=== PATIENT | female | born 1945 | race Caucasian/White ===

== ENCOUNTER 2017-07-31 16:52 | Inpatient (IN) | payer MEDICARE, BC ==
[2017-07-31] MEDS ORDERED: Ondansetron INJ* 2 MG/ML VIAL IV ONE ×2 (17:12→17:59)
[2017-07-31] MEDS ORDERED: Morphine INJ* 4 MG/ML 1 ML CARPUJECT IV ONE (17:12)
[2017-07-31] MEDS ORDERED: HYDROmorphone INJ* 1 MG/ML CARPUJECT SYRINGE IV ONE (17:59)
[2017-07-31 18:10] LABS: Hematocrit 40 % (35-47); Hemoglobin 13.6 g/dl (12.0-16.0); Mean Corpuscular HGB Conc 34 g/dl (31-36); Mean Corpuscular Hemoglobin 29 pg (27-31); Mean Corpuscular Volume 86 fL (80-97); Mean Platelet Volume 7 um3 (7.4-10.4); Red Blood Count 4.61 10^6/ul (4.0-5.4); Red Cell Distribution Width 14 % (10.5-15); White Blood Count 8.3 10^3/ul (3.5-10.8)
[2017-07-31 18:24] LABS: Albumin 4.4 g/dL (3.2-5.2); BUN/Creatinine Ratio 17.7 (8-20); Calcium 8.8 mg/dL (8.6-10.3); EGFR African American 73.3 (>60); Globulin 2.5 g/dL (2-4); Potassium 3.4 mmol/L (3.5-5.0); Total Bilirubin 0.3 mg/dL (0.2-1.0); Total Protein 6.9 g/dL (6.4-8.9)
--- NOTE | 2017-07-31 19:04 | RAD ---
Indication: LEFT hip pain post fall. Comparison: February 10, 2016 CT. Technique: AP pelvis and AP and frog-leg lateral views LEFT hip. Report: Transcervical LEFT femoral neck fracture with 1 cm lateral displacement and cephalocaudal override of the fracture fragments. The femoral head remains located at the acetabulum. Negative for pelvic fracture or joint diastases. Sharply circumscribed indolent appearing cyst at the RIGHT femoral neck. No suspicious focal osseous lesions evident. Negative for significant hip joint space narrowing or other arthropathic change. Soft tissue swelling about the LEFT hip. IMPRESSION: Acute LEFT femoral neck fracture.
[2017-07-31] MEDS ORDERED: Acetaminophen TAB* 325 MG PO PRN (19:05)
[2017-07-31] MEDS ORDERED: Heparin VIAL(*) 5000 UNITS/ML VIAL (FIVE THOUSAND) SUBCUT ONE (19:10)
--- NOTE | 2017-07-31 19:11 | RAD ---
Indication: Fall. LEFT hip fracture. LEFT side and elbow pain. Comparison: LEFT hip exam of the same date. March 11, 2016 chest radiograph. Technique: Supine AP chest 1829 hours Report: Mildly elevated LEFT hemidiaphragm with LEFT basilar subsegmental atelectasis. Mild diffuse prominence of interstitial markings similar to the prior exam. No gross evidence for pneumothorax within limits of supine technique. Accounting for rightward rotation the heart, pulmonary vasculature, and mediastinal contours are unremarkable. Cervical level surgical clips noted. No conspicuous rib fracture. IMPRESSION: Mild LEFT basilar atelectasis. Stigmata of probable chronic obstructive pulmonary disease.
[2017-07-31] MEDS ORDERED: CMCS:Melatonin (NF) 3 MG TAB PO PRN (19:12)
--- NOTE | 2017-07-31 19:15 | RAD ---
INDICATION: LEFT elbow pain following fall. LEFT hip fracture. COMPARISON: No relevant prior exams available on the [facility] for comparison. TECHNIQUE: AP, lateral, and oblique views LEFT elbow. REPORT: Displaced anterior fat pad consistent with presence of joint effusion. Suggestion of an angular shaped loose body at the anterior joint recess. While a chronic loose body is favored over acute fracture with no donor site visible an acute intra-articular fracture is not excluded. Medial and lateral epicondyles enthesophytes. Mild nonfocal soft tissue swelling. IMPRESSION: Joint effusion. Suggestion of an angular shaped loose body at the anterior joint recess. While a chronic loose body is favored over acute fracture with no donor site visible an acute intra-articular fracture is not excluded.
[2017-07-31 19:53] LABS: Magnesium 2.1 mg/dL (1.9-2.7)
[2017-07-31 20:07] LABS: TSH (Thyroid Stimulating Horm) 0.44 mcIU/mL (0.34-5.60)
[2017-07-31] MEDS: Morphine INJ* 2 MG/ML 1 ML SYRINGE (TWO MG - NEW SYRINGE VERSION) IV PRN ×2 (20:27→22:31)
[2017-07-31] MEDS: Ondansetron INJ* 2 MG/ML VIAL IV SCH ×2 (20:30→23:40)
[2017-07-31] MEDS: Mirtazapine TAB* 15 MG PO SCH (20:43)
[2017-07-31] MEDS: QUEtiapine TAB* 100 MG PO SCH (20:45)
[2017-07-31] MEDS: NS 0.9% 1000 ML* 1,000 ML IV SCH (20:48)
--- NOTE | 2017-08-01 00:26 | HP ---
CC: Germán Miguel NP * HISTORY AND PHYSICAL: DATE OF ADMISSION: 07/31/17 PRIMARY CARE PROVIDER: Germán Miguel NP MY ATTENDING WHILE IN THE HOSPITAL: Dr. Everardo Kovacs * (DICTATED BY HERNANDEZ ROCHA) CHIEF COMPLAINT: Fall with left hip pain. HISTORY OF PRESENT ILLNESS: The patient is a 72-year-old female with past medical history significant for osteopenia, depression, hypertension, thyroidectomy, hyperlipidemia, who presents after a mechanical fall in which she tripped off her porch falling down one step and landing onto a concrete apron. The patient denies any loss of consciousness, any prodrome of symptoms. The patient states she tripped. The patient did not hit her head. The patient has no current pain in her head. The patient did not have a history of frequent falls. The patient has 4/10 pain in her hip after significant pain medication in the hospital. The patient denies any other pains. The patient denies any feeling of a pop or crack in her hip. The patient has no recent changes in medication or oral intake or any recent illnesses, chest pain, shortness of breath, nausea, vomiting, diarrhea. The patient took all of her medications this morning. The patient's most recent oral intake with lunch at 12:30 p.m. today. PAST MEDICAL HISTORY: Depression, hypertension, thyroidectomy for thyroid nodules that were found to be cancerous, osteopenia with T score of negative 1 from 2013, and hyperlipidemia. PAST SURGICAL HISTORY: Thyroidectomy. MEDICATIONS: 1. Aspirin 81 mg p.o. daily. 2. Melatonin 6 mg p.o. at bedtime as needed. 3. Docusate 100 mg p.o. daily. 4. Buspirone 10 mg p.o. t.i.d. 5. Amlodipine 10 mg p.o. daily. 5. Lipitor 10 mg p.o. q.p.m. 6. Lexapro 20 mg p.o. daily. 7. Quetiapine 100 mg p.o. b.i.d. 8. Remeron 45 mg p.o. at bedtime. 9. Levothyroxine 112 mcg p.o. daily. ALLERGIES: SULFA DRUGS. FAMILY HISTORY: The patient's father of old age. The patient's mother of bowel cancer and had hypertension. The patient had a paternal aunt, who had juvenile-onset diabetes. The patient had a maternal uncle, who of lung cancer. SOCIAL HISTORY: The patient smoked for about 15 years but states she never inhaled and quit in 1980. The patient drank, had a problem with alcohol but could not quantify her amount of alcohol she drank and quit 2 years ago. The patient denies any illicit drugs. 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 The patient is and never had any children. REVIEW OF SYSTEMS: A 14-point review of systems was reviewed and negative except as above. PHYSICAL EXAMINATION GENERAL: The patient is a 72-year-old female who appears stated age and is lying in the bed in moderate distress from pain. VITAL SIGNS: On admission in the ED, temperature 98, pulse rate 94, respiratory rate 24, oxygen saturation 97% on room air, blood pressure 177/72. HEENT: Head normocephalic, atraumatic. Sclerae anicteric. No conjunctival injection. Nasal mucosa moist. No trauma to the inside of the mouth or nose. No damage to the teeth. Pharynx nonerythematous. NECK: Supple, nontender. No lymphadenopathy. No carotid bruits auscultated. RESPIRATORY: Clear to auscultation bilaterally. No wheezes, rales, or rhonchi. Good air exchange bilaterally. CARDIAC: Regular rate and rhythm. No clicks, murmurs, gallops, or rubs. Pulse is 2+ in the bilateral radial, dorsalis pedis, and posterior tibialis areas. ABDOMEN: Soft, nontender, nondistended. Normoactive bowel sounds present in all 4 quadrants. No hepatosplenomegaly. No mass. GENITOURINARY: No suprapubic tenderness or CVA tenderness. MUSCULOSKELETAL: The patient has preserved range of motion in the upper extremities bilaterally with tenderness to palpation diffusely around the left elbow with no point tenderness. There is a slight open area on the left elbow. The patient has no ecchymosis noted anywhere on the skin. The patient's left lower extremity is slightly shortened and externally rotated with obvious deformity. There is pain to palpation over the posterior aspect of the hip. There is excruciating pain with any movement of the lower extremity. Sensation is intact to light touch and equal to the right side distal to the deformity. Skin is pink and warm. Good pulses. The patient complains of no other pain or tenderness. NEURO: Cranial nerves II through XII grossly intact. Strength preserved in the upper extremity. Strength preserved distally in the lower extremity and equal bilaterally. Reflexes 2+ in the bilateral patellar and Achilles areas. PSYCHIATRIC: The patient is anxious but is otherwise cooperative and pleasant. DIAGNOSTIC STUDIES/LAB DATA: White blood cell count 8.3, red blood cell count 4.61, hemoglobin 13.6, hematocrit 40, MCV 86. INR 0.86. Sodium 136, potassium 3.4, chloride 103, carbon dioxide 24, anion gap 9, BUN 17, creatinine 0.96, BUN- to- creatinine ratio 17.7, glucose 102, calcium 8.8. Bilirubin 0.3, AST 20, ALT 11, alkaline phosphatase 67, albumin 4.4, globulin 2.5. Electrocardiogram shows normal sinus rhythm, rate of 91, early repolarization in V2 and V3 consistent with previous studies, no ST-segment changes, no abnormalities, normal axis, QTc of 451. Elbow x-ray read as joint effusion, suggestion of an angular-shaped loose body at the anterior joint recess while a chronic loose body is favored over acute fracture, no donor site visible and acute intra-articular fracture is not excluded. Hip and pelvis x-ray: Acute left femoral neck fracture. Chest x-ray: Mild left basilar atelectasis, is not a stigmata of probable COPD. IMPRESSION AND PLAN: The patient is a 72-year-old female with past medical history significant for osteopenia, hypertension, hyperlipidemia, who presents with a mechanical fall and a left femoral neck fracture. The patient will be admitted and Orthopedics will be consulted for probable surgical fixation in the a.m. 1. Left hip fracture. The patient had a mechanical fall off porch falling down 1 step and hitting her hip and elbow. The patient has a definite fracture in her left femoral neck and a possible fracture in her left elbow, which is not supported by the physical exam findings. The patient will be admitted, placed on a short- stay surgical unit. Orthopedics will be consulted. The patient will be n.p.o. after midnight for possible surgery in the morning. The patient is medically optimized for a moderate-risk surgery. The patient has an RCRI risk of 1 and has at least 4 METs at home having no functional limitation is known. We will continue the patient's medications through surgery except for the patient's aspirin and amlodipine, we will resume when clinically indicated. The patient will be n.p.o. after midnight, only put on normal saline maintenance fluids at 75 mL an hour. The patient will have 1 injection of heparin sodium subcutaneous for DVT prophylaxis and that will be held pending surgery in the morning. The patient will have morphine injection 2 mg IV q.2 hours as needed for pain as well as Tylenol. 2. Hypertension. We will hold the patient's amlodipine. The patient is currently normotensive. 3. Hyperlipidemia. Continue atorvastatin. 4. Osteopenia. The patient has a T-score from a DEXA scan performed at this institution in 2013, this predisposes to fracture, the patient is not treated in any other way. We will consider treatment for osteopenia and repeat DEXA scan as outpatient when indicated. 5. Hypothyroidism status post thyroidectomy. Continue the patient's levothyroxine. We will add on TSH, which is pending. 6. FEN. The patient will have a heart healthy, no caffeine diet, and then be n.p.o. after midnight. The patient will have maintenance fluids at 75 mL an hour IV. 7. Code status. The patient would like to be a DNR. The patient's surrogate decision maker is her , Ej Santana. We will follow up on this. 8. DVT prophylaxis. The patient will have 1 injection of subcu heparin and this will be resumed after surgery when clinically indicated.. 9. Disposition. The patient is admitted inpatient to the short-stay surgical unit pending possible surgical fixation of left hip. TIME SPENT: Approximately 60 minutes was spent on this admission, 30 minutes of which was spent face-to- face with the patient obtaining history and physical and discussing treatment plan. HERNANDEZ ROCHA [id number]/[facility] #: [id number] NATE
--- NOTE | 2017-08-01 03:31 | ED ---
Johanna Junior Gabriel, scribed for Ej Manzano MD on 07/31/17 at 1732 . Lower Extremity - HPI Summary HPI Summary: This patient is a 72 year old F BIBA presenting to [facility] with a chief complaint of pain in left hip s/p fall. Pt states she fell off her porch and hurt her hip. - History of Current Complaint Stated Complaint: FAll HIP AND FEMUR PAIN Time Seen by Provider: 07/31/17 17:27 Hx Obtained From: Patient Mechanism Of Injury: Fall From Height Of: - front porch Onset/Duration: Still Present Timing: Constant - Allergies/Home Medications Allergies/Adverse Reactions: Allergies Allergy/AdvReac Type Severity Reaction Status Date / Time Sulfa Drugs Allergy Mild Rash Verified 03/11/16 22:32 Home Medications: Home Medications Atorvastatin* [Lipitor*] 10 mg PO QPM 07/31/17 [History Confirmed 07/31/17] Docusate CAP* [Colace Cap*] 100 mg PO DAILY 07/31/17 [History Confirmed 07/31/17 ] Escitalopram (NF) [Lexapro 20 mg (NF)] 20 mg PO DAILY 07/31/17 [History Confirmed 07/31/17] Levothyroxine TAB* [Synthroid TAB*] 112 mcg PO DAILY 07/31/17 [History Confirmed 07/31/17] Melatonin (NF) [Meladox] 6 mg PO BEDTIME PRN 07/31/17 [History Confirmed ] Mirtazapine TAB* [Remeron TAB*] 45 mg PO BEDTIME 07/31/17 [History Confirmed ] QUEtiapine TAB* [SEROquel TAB*] 100 mg PO BID 07/31/17 [History Confirmed ] amLODIPine TAB* [Norvasc 5 mg TAB*] 10 mg PO DAILY 07/31/17 [History Confirmed 07/31/17] busPIRone TAB* [Buspar TAB*] 10 mg PO TID 07/31/17 [History Confirmed 07/31/17] PMH/Surg Hx/FS Hx/Imm Hx Previously Healthy: No Endocrine/Hematology History: Denies: Hx Diabetes, Hx Systemic Lupus Erythematosus Cardiovascular History: Reports: Hx Hypertension Denies: Hx Pacemaker/ICD History: Denies: Hx Dialysis, Hx Renal Disease Musculoskeletal History: Denies: Hx Rheumatoid Arthritis, Hx Osteoporosis Sensory History: Reports: Hx Hearing Aid - Left Ear Psychiatric History: Denies: Hx Eating Disorder, Hx Panic Disorder, Hx of Violent Episodes Against Others - Cancer History Cancer Type, Location and Year: thyroid nodule ca Hx Chemotherapy: No Hx Radiation Therapy: No - Surgical History Surgery Procedure, Year, and Place: thyroidectomy 2009. Tonsils. Eye muscle surgery as a child Infectious Disease History: Denies: Traveled Outside the [place] in Last 30 Days - Family History Known Family History: Positive: Diabetes, Other - cancer - Social History Alcohol Use: Occasionally Substance Use Type: Reports: None Smoking Status (MU): Former Smoker Type: Cigarettes Have You Smoked in the Last Year: No Review of Systems Negative: Fever Positive: Other - pain in left hip All Other Systems Reviewed And Are Negative: Yes Physical Exam - Summary Physical Exam Summary: Appearance: Well-appearing Eyes: Normal, Conjunctiva clear ENT: Normal ENT inspection. Dental: Normal Neck: Supple, non-tender, no lymphadenopathy Lungs: Lungs clear, normal breath sounds, no respiratory distress, no accessory muscle use. Heart: RRR, no murmur, pulses normal. Abdomen: Nontender, soft. Musculoskeletal: Left leg is externally rotated and shortened. She is also tender over her left hip. Neurological: Normal Psychiatric: Normal Skin: Normal Triage Information Reviewed: Yes Vital Signs On Initial Exam: Initial Vitals Resp 22 07/31/17 17:44 Vital Signs Reviewed: Yes Diagnostics - Vital Signs Vital Signs Temp Pulse Resp BP Pulse Ox 07/31/17 18:02 24 07/31/17 17:50 98 F 94 24 122/77 97 07/31/17 17:44 22 - Laboratory Lab Results: Lab Results 07/31/17 07/31/17 07/31/17 Range/Units 17:58 17:58 17:58 WBC 8.3 (3.5-10.8) 10^3/ul RBC 4.61 (4.0-5.4) 10^6/ul Hgb 13.6 (12.0-16.0) g/dl Hct 40 (35-47) % MCV 86 (80-97) fL MCH 29 (27-31) pg MCHC 34 (31-36) g/dl RDW 14 (10.5-15) % Plt Count 331 (150-450) 10^3/ul MPV 7 L (7.4-10.4) um3 INR (Anticoag Therapy) 0.86 L (0.89-1.11) APTT 26.7 (26.0-36.3) seconds Sodium 136 (133-145) mmol/L Potassium 3.4 L (3.5-5.0) mmol/L Chloride 103 (101-111) mmol/L Carbon Dioxide 24 (22-32) mmol/L Anion Gap 9 (2-11) mmol/L BUN 17 (6-24) mg/dL Creatinine 0.96 H (0.51-0.95) mg/dL Est GFR ( Amer) 73.3 (>60) Est GFR (Non-Af Amer) 57.0 (>60) BUN/Creatinine Ratio 17.7 (8-20) Glucose 102 H (70-100) mg/dL Calcium 8.8 (8.6-10.3) mg/dL Magnesium 2.1 (1.9-2.7) mg/dL Total Bilirubin 0.30 (0.2-1.0) mg/dL AST 20 (13-39) U/L ALT 11 (7-52) U/L Alkaline Phosphatase 67 (34-104) U/L Total Protein 6.9 (6.4-8.9) g/dL Albumin 4.4 (3.2-5.2) g/dL Globulin 2.5 (2-4) g/dL Albumin/Globulin Ratio 1.8 (1-3) TSH 0.44 (0.34-5.60) mcIU/mL Result Diagrams: 07/31/17 17:58 07/31/17 17:58 Lab Statement: Any lab studies that have been ordered have been reviewed, and results considered in the medical decision making process. Lower Extremity Course/Dx - Course Course Of Treatment: Ms. Cash fell off the porch and was found to have a left hip fracture. Dr. Kovacs has been notified and there is a call out for Dr. Hutchins at this time. - Diagnoses Provider Diagnoses: Closed left hip fracture Discharge - Discharge Plan Condition: Stable Disposition: ADMITTED TO [facility] documentation as recorded by the Johanna ko Gabriel accurately reflects the service I personally performed and the decisions made by , Ej Manzano MD.
[2017-08-01] MEDS: Morphine INJ* 2 MG/ML 1 ML SYRINGE (TWO MG - NEW SYRINGE VERSION) IV PRN ×5 (03:58→14:43)
[2017-08-01] MEDS: Ondansetron INJ* 2 MG/ML VIAL IV SCH ×5 (03:58→22:29)
[2017-08-01] MEDS: Levothyroxine TAB* 112 MCG TAB PO SCH (05:24)
[2017-08-01 05:55] LABS: Hematocrit 39 % (35-47); Hemoglobin 13.1 g/dl (12.0-16.0); Mean Corpuscular HGB Conc 34 g/dl (31-36); Mean Corpuscular Hemoglobin 29 pg (27-31); Mean Corpuscular Volume 87 fL (80-97); Mean Platelet Volume 7 um3 (7.4-10.4); Red Blood Count 4.48 10^6/ul (4.0-5.4); Red Cell Distribution Width 14 % (10.5-15)
[2017-08-01 06:11] LABS: BUN/Creatinine Ratio 13.3 (8-20); Calcium 8.3 mg/dL (8.6-10.3); EGFR African American 71.5 (>60); EGFR Non-African American 55.6 (>60); Potassium 3.3 mmol/L (3.5-5.0)
[2017-08-01] MEDS: CMCS:Escitalopram (NF) 10 MG TAB PO SCH (07:25)
[2017-08-01] MEDS: QUEtiapine TAB* 100 MG PO SCH ×2 (07:25→22:31)
[2017-08-01] MEDS ORDERED: KCL 20 MEQ/100 ML IVPREMIX* 20 MEQ/100 ML BAG IV ONE (08:00)
--- NOTE | 2017-08-01 13:12 | CONS ---
CC: Jorge A Tellez M.D. CONSULTATION: DATE OF CONSULT: 07/31/17 PROVIDER: Jorge A Tellez MD PRIMARY CARE PROVIDER: Germán Miguel NP CHIEF COMPLAINT: Fall with immediate left hip pain. HISTORY OF PRESENT ILLNESS: The patient is a 72-year-old female with past medical history of osteopenia, depression, hypertension, thyroidectomy, hyperlipidemia. She presents after a mechanical fall yesterday 07/31/17, at approximately 4 p.m., which occurred when she tripped off of her porch, falling down one stair and landing on a concrete slab. She landed on her left hip and left elbow. She did not lose consciousness. She did not hit her head. She denies any chest pain, shortness of breath, dizziness or visual changes prior to fall and states that this was a fall due to tripping alone. She does not have a history of recurrent falls. 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 Today, the patient is lying relatively comfortably in bed, but confirms 10/10 hip pain with movement of her left hip and the pain does radiate into her left thigh. She denies any numbness or tingling. Denies any changes in bowel or bladder function. She has had no changes in medication. She has no history of blood clots, heart attack, or stroke. She has no history of easy bleeding or bruising. She takes aspirin 81mg qd and no other blood thinning agent. Her last oral intake was yesterday afternoon, 07/31/17. PAST MEDICAL HISTORY: Depression, hypertension, thyroidectomy due to cancerous thyroid nodules, osteopenia, hyperlipidemia. PAST SURGICAL HISTORY: Thyroidectomy, tonsillectomy, eye surgery in childhood. MEDICATIONS: 1. Aspirin 81 mg p.o. daily. 2. Melatonin 6 mg p.o. daily at bedtime as needed. 3. Docusate 100 mg p.o. daily. 4. Buspirone 10 mg p.o. t.i.d. 5. Amlodipine 10 mg p.o. daily. 6. Lipitor 10 mg p.o. q.p.m. 7. Lexapro 20 mg p.o. daily. 8. Quetiapine 100 mg p.o. b.i.d. 9. Remeron 45 mg p.o. at bedtime. 10. Levothyroxine 112 mcg p.o. daily. During her hospital stay, she is also taking; 1. Acetaminophen 650 mg p.o. q.6 hours p.r.n. pain. 2. Morphine 2 mg IV q.2 hours p.r.n. pain. 3. Zofran 4 mg IV q.4 hours. 4. Yesterday, she had heparin 5000 units once, which is held until after surgery. ALLERGIES: SULFA drugs- reaction is urticaria FAMILY HISTORY: Father none significant, of "old age". Mother, bowel cancer and hypertension. SOCIAL HISTORY: Former smoker, quit in 1980, former alcohol use quit 2 years ago. No drug use. 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 , no children. REVIEW OF SYSTEMS: HEENT: Denies headache, visual changes, difficulty hearing. Cardio: Denies chest pain, pedal edema, irregular heartbeats. Cardiac history significant only for hypertension. Respiratory: Denies any shortness of breath or coughing. GI: Denies constipation or diarrhea. Denies abdominal pain. : Johns in place. Denies any suprapubic pain or known changes in urine. Musculoskeletal: Left hip pain, left elbow is not painful. The patient feels she has full range of motion of her elbow. Neuro: The patient has full sensation of lower extremities. She denies any numbness or tingling. Denies dizziness or lightheadedness. Skin: One small laceration over left elbow. No other know injuries from the fall. No rashes or lesions. PHYSICAL EXAM: General: The patient is a pleasant 72-year-old female. She appears her stated age. She is in no acute distress while lying, but does appear to be in pain when asked to move around a bit for the exam. Vital Signs : Currently, respiratory rate is 18, temperature 98.4, blood pressure 128/92, oxygen saturation is 91, heart rate is 92. HEENT: Normocephalic, atraumatic. Eyes, EOMI. Mouth: No fall related damage to the teeth or tongue. No dentures. No bridges. Pharynx is nonerythematous. Neck: Supple and nontender. Respiratory: Lungs are clear to auscultation bilaterally without wheezes, rales, or rhonchi, normal work of breathing. Cardiac: Regular rate and rhythm. S1 and S2. No audible murmur. Dorsalis pedis and posterior tibial pulses are 2+ and symmetric. Abdomen: Soft, nontender. Bowel sounds in all 4 quadrants are normal. No palpable masses. : No suprapubic tenderness. Musculoskeletal: Left lower extremity is shortened and externally rotated. The patient is tender over the left hip without obvious deformity. She is very resistant to move the hip due to pain. Left elbow is nontender to palpation, no obvious deformity, full nonpainful flexion, extension, supination and pronation. She has no c spine tenderness. Neuro: Dorsiflexion and plantar flexion are intact bilaterally. Sensation is intact throughout lower extremities to light touch including the dorsum and plantar surface of the foot , the webspace between the first and second digit, lateral and medial foot. DIAGNOSTIC STUDIES/LAB DATA: H and H 13.1/39, potassium is 3.3, creatinine is 0.98. Hip and pelvis x-ray show transcervical left femoral neck fracture with 1 cm lateral displacement and cephalocaudal override of the fracture fragments. The femoral head remains located in the acetabulum. Negative for pelvic fracture or joint diastasis. Negative for significant hip joint space narrowing or other arthropathic change. Soft tissue swelling about the left hip. Impression is acute left femoral neck fracture. Elbow x-ray, left joint effusion. Suggestion of an angular shaped loose body at the anterior joint recess, while a chronic loose body is favored over acute fracture with no donor site visible, an acute intra-articular fracture is not excluded. IMPRESSION AND PLAN: This is a 72-year-old female with a mechanical fall resulting in a left femoral neck fracture. The patient will be taken to the OR today for left hip hemiarthroplasty by Dr. Tellez. HERNANDEZ HUSSEIN [id number]/[facility] #: [id number] MTDD
--- NOTE | 2017-08-01 14:24 | PN ---
Subjective Date of Service: 08/01/17 Interval History: Patient has no acute complaints besides 7/10 pain in left hip. No pain in elbow. No CP, SOB, N/V, Abdominal Pain, Dysuria, F/C or other pain. Patient had urinary retention overnight and a sanford was placed. Patient also was hypoxic and was placed on O2. Family History: Unchanged from Admission Social History: Unchanged from Admission Past Medical History: Unchanged from Admission Objective Active Medications: Acetaminophen (Tylenol Tab*) 650 mg PO Q6H PRN PRN Reason: PAIN Atorvastatin Calcium (Lipitor*) 10 mg PO QPM [facility] Escitalopram Oxalate (Lexapro (Nf)) 20 mg PO DAILY [facility] Last Admin: 08/01/17 07:25 Dose: 20 mg Sodium Chloride (Ns 0.9% 1000 Ml*) 1,000 mls @ 75 mls/hr IV PER RATE [facility] Last Admin: 07/31/17 20:48 Dose: 75 mls/hr Levothyroxine Sodium (Synthroid Tab*) 112 mcg PO DAILY@0600 [facility] Last Admin: 08/01/17 05:24 Dose: 112 mcg Melatonin (Melatonin (Nf)) 6 mg PO BEDTIME PRN; Protocol PRN Reason: SLEEP Mirtazapine (Remeron Tab*) 45 mg PO BEDTIME [facility] Last Admin: 07/31/17 20:43 Dose: 45 mg Morphine Sulfate (Morphine Inj (Syringe)*) 2 mg IV Q2H PRN PRN Reason: PAIN Last Admin: 08/01/17 12:47 Dose: 2 mg Ondansetron HCl (Zofran Inj*) 4 mg IV Q4H [facility] Last Admin: 08/01/17 12:09 Dose: 4 mg Quetiapine Fumarate (Seroquel Tab*) 100 mg PO BID [facility] Last Admin: 08/01/17 07:25 Dose: 100 mg Vital Signs 07/31/17 07/31/17 07/31/17 19:44 20:23 20:27 Temperature 98.3 F Pulse Rate 99 97 Respiratory 18 18 18 Rate Blood Pressure 163/95 179/101 (mmHg) O2 Sat by Pulse 93 95 Oximetry 07/31/17 07/31/17 07/31/17 20:56 22:31 22:33 Temperature Pulse Rate Respiratory 18 20 18 Rate Blood Pressure (mmHg) O2 Sat by Pulse Oximetry 07/31/17 07/31/17 07/31/17 23:33 23:39 23:40 Temperature 98.8 F Pulse Rate 112 104 Respiratory 18 16 Rate Blood Pressure 167/92 (mmHg) O2 Sat by Pulse 92 96 Oximetry 08/01/17 08/01/17 08/01/17 01:03 03:46 03:58 Temperature 98.8 F Pulse Rate 104 99 Respiratory 16 16 Rate Blood Pressure 155/84 147/89 (mmHg) O2 Sat by Pulse 94 94 Oximetry 08/01/17 08/01/17 08/01/17 05:08 07:24 07:26 Temperature 98.4 F Pulse Rate 92 Respiratory 16 18 20 Rate Blood Pressure 148/92 (mmHg) O2 Sat by Pulse 91 Oximetry 08/01/17 08/01/17 08/01/17 08:00 08:50 10:42 Temperature Pulse Rate Respiratory 18 18 18 Rate Blood Pressure (mmHg) O2 Sat by Pulse Oximetry 08/01/17 08/01/17 08/01/17 11:26 11:59 12:47 Temperature 99.3 F Pulse Rate 87 Respiratory 17 18 18 Rate Blood Pressure 142/80 (mmHg) O2 Sat by Pulse 95 Oximetry 08/01/17 13:53 Temperature Pulse Rate Respiratory 18 Rate Blood Pressure (mmHg) O2 Sat by Pulse Oximetry Oxygen Devices in Use Now: Nasal Cannula Appearance: Patient is a 72yo female who appears stated age and is sitting in the bed in [facility]. Eyes: No Scleral Icterus, PERRLA Ears/Nose/Mouth/Throat: NL Teeth, Lips, Gums, Clear Oropharnyx, Mucous Membranes Moist Neck: NL Appearance and Movements; NL JVP, Trachea Midline Respiratory: Symmetrical Chest Expansion and Respiratory Effort, Clear to Auscultation Cardiovascular: NL Sounds; No Murmurs; No JVD, RRR, No Edema Abdominal: NL Sounds; No Tenderness; No Distention, No Hepatosplenomegaly Lymphatic: No Cervical Adenopathy Extremities: No Edema, No Clubbing, Cyanosis, - - Shortening and external rotation of left leg. Severe pain with palpation over posterior aspect of hip and with any movement of the LLE. Otherwise preserved ROM in UE and RLE without pain. Slight scrape on L elbow. No bony tenderness or deformity. Skin: No Rash or Ulcers, No Nodules or Sclerosis Neurological: Alert and Oriented x 3, NL Sensation, NL Muscle Strength and Tone Result Diagrams: 08/01/17 05:40 08/01/17 05:40 Additional Lab and Data: Lab Results Assess/Plan/Problems-Billing Assessment: Patient is a 72yo female with a PMH significant for osteopenia, depression, HTN , HLD who presents with a mechanical fall and a left femoral neck fracture on hip XR. Patient will undergo left hip hemiarthroplasty on 08/01 at 1700. - Patient Problems (1) Left displaced femoral neck fracture Current Visit: Yes Status: Acute Code(s): S72.002A - FRACTURE OF UNSP PART OF NECK OF LEFT FEMUR, INIT SNOMED Code(s): 1290716 Comment: Patient has moderate pain control with Morphine which is likely the cause of acute urinary retention and hypoxia. Plan for left hemiarthroplasty this evening. Appreciate orthopedics consult. Neurovascularly intact distal to injury. (2) Fall Current Visit: Yes Status: Acute Comment: Mechanical fall. Only 1 other mechanical fall in lifetime with left shoulder dislocation. No LOC, head trauma, or prodromal symptoms. (3) Depression Current Visit: Yes Status: Acute Code(s): F32.9 - MAJOR DEPRESSIVE DISORDER , SINGLE EPISODE, UNSPECIFIED SNOMED Code(s): 68765977 Comment: Patient was admitted previously to this institution for suicide attempt. Continue home Lexapro, Remeron, and Quetiapine. (4) HTN (hypertension) Current Visit: Yes Status: Acute Code(s): I10 - ESSENTIAL (PRIMARY) HYPERTENSION SNOMED Code(s): 85942561 Comment: Hold Amlodipine for surgery. Resume when able. (5) HLD (hyperlipidemia) Current Visit: Yes Status: Acute Code(s): E78.5 - HYPERLIPIDEMIA, UNSPECIFIED SNOMED Code(s): 69609400 Comment: Continue atorvastatin. (6) Osteopenia Current Visit: Yes Status: Acute Code(s): M85.80 - OTH DISRD OF BONE DENSITY AND STRUCTURE, UNSPECIFIED SITE SNOMED Code(s): 615514527 Comment: Osteopenia in B/L hips from 2013 DEXA. Would recommend F/U outpatient. (7) S/P thyroidectomy Current Visit: Yes Status: Acute Code(s): E89.0 - POSTPROCEDURAL HYPOTHYROIDISM SNOMED Code(s): 717016112 Comment: TSH low. Continue levothyroxine. (8) DNR (do not resuscitate) Current Visit: Yes Status: Acute Comment: Patient stated she would like to be a DNR. MOLST form completed. (9) DVT prophylaxis Current Visit: Yes Status: Acute Code(s): KIU7465 - SNOMED Code(s): 846122025 Comment: heparin subQ x1 dose on 08/01. Held for surgery. Continue after surgery. Status and Disposition: Patient is admitted inpatient for hip fracture.
[2017-08-01] MEDS ORDERED: ceFAZolin 2 GM PREMIX (*) 0 GM/0 ML BAG IVPB ONE (16:57)
[2017-08-01] MEDS ORDERED: Midazolam* 1 MG/ML 2 ML VIAL (2 MG) ONE ×2 (17:03→18:13)
[2017-08-01] MEDS ORDERED: Morphine PF AMP (0.5MG/ML)* 5 MG/10 ML AMP ONE (17:03)
[2017-08-01] MEDS ORDERED: fentaNYL* 50 MCG/ML 2 ML VIAL (100 MCG VIAL) ONE (17:03)
[2017-08-01] MEDS ORDERED: Bupivacaine 0.5% SDV PF* 30 ML VIAL ONE (17:41)
[2017-08-01] MEDS ORDERED: Naloxone* 0.4 MG/ML 1 ML VIAL IV PRN (20:03)
[2017-08-01] MEDS ORDERED: Nalbuphine* 20 MG/ML 1 ML VIAL IV PRN (20:03)
[2017-08-01] MEDS ORDERED: DiMENhydriNATE IV* 50 MG/ML VIAL IV PUSH PRN (20:03)
--- NOTE | 2017-08-01 21:33 | RAD ---
Indication: Post LEFT hip hemiarthroplasty. LEFT femoral neck fracture. Comparison: July 31, 2017 Technique: AP pelvis and AP and crosstable lateral views LEFT hip. Report: LEFT hip bipolar hemiarthroplasty in place. No periprosthetic fracture evident. Surrounding soft tissue edema and subcutaneous emphysema. Overlying cutaneous yolanda. IMPRESSION: Unremarkable postop exam following LEFT hip replacement.
[2017-08-01] MEDS ORDERED: Warfarin TAB(*) 4 MG PO ONE (22:00)
[2017-08-01] MEDS: Ibuprofen TAB* 400 MG PO SCH (22:28)
[2017-08-01] MEDS: Mirtazapine TAB* 15 MG PO SCH (22:28)
[2017-08-01] MEDS: Atorvastatin* 10 MG TAB PO SCH (22:29)
[2017-08-01] MEDS: Heparin VIAL(*) 5000 UNITS/ML VIAL (FIVE THOUSAND) SUBCUT SCH (22:31)
[2017-08-01] MEDS: oxyCODONE/Acetamin 5/325 MG* TAB PO PRN (22:53)
[2017-08-02] MEDS: ceFAZolin 1 GM* X 3 DOSES POST-OP Q8H IVPB SCH ×6 (01:18→17:09)
[2017-08-02] MEDS: Ondansetron INJ* 2 MG/ML VIAL IV SCH ×3 (01:25→08:01)
[2017-08-02] MEDS: Ibuprofen TAB* 400 MG PO SCH ×3 (02:49→08:53)
[2017-08-02] MEDS: oxyCODONE/Acetamin 5/325 MG* TAB PO PRN ×5 (02:52→20:55)
[2017-08-02 05:32] LABS: Hematocrit 31 % (35-47); Hemoglobin 10.3 g/dl (12.0-16.0); Mean Corpuscular HGB Conc 34 g/dl (31-36); Mean Corpuscular Hemoglobin 29 pg (27-31); Mean Corpuscular Volume 87 fL (80-97); Mean Platelet Volume 7 um3 (7.4-10.4); Red Blood Count 3.53 10^6/ul (4.0-5.4); Red Cell Distribution Width 13 % (10.5-15); White Blood Count 12.1 10^3/ul (3.5-10.8)
[2017-08-02 05:47] LABS: Albumin 3.2 g/dL (3.2-5.2); BUN/Creatinine Ratio 13.6 (8-20); Calcium 7.7 mg/dL (8.6-10.3); Globulin 2.1 g/dL (2-4); Potassium 3.2 mmol/L (3.5-5.0); Total Bilirubin 0.3 mg/dL (0.2-1.0); Total Protein 5.3 g/dL (6.4-8.9)
[2017-08-02] MEDS: Levothyroxine TAB* 112 MCG TAB PO SCH (06:16)
[2017-08-02] MEDS: NS 0.9% 1000 ML* 1,000 ML IV SCH (07:01)
[2017-08-02] MEDS ORDERED: HYDROcodone/ACETAMIN 5-325 MG* 1 TAB PO PRN (07:13)
[2017-08-02] MEDS ORDERED: Ondansetron INJ* 2 MG/ML VIAL IV PRN (07:13)
--- NOTE | 2017-08-02 07:16 | PN ---
Progress Note - Progress Note Date of Service: 08/02/17 SOAP: Subjective: resting comfortably in bed with no complaints Objective: Vital Signs Temp Pulse Resp BP Pulse Ox 98.9 F 103 16 139/70 92 08/02/17 03:49 08/02/17 03:49 08/02/17 06:12 08/02/17 03:49 08/02/17 03:49 Laboratory Last Values WBC 12.1 10^3/ul (3.5-10.8) H 08/02/17 05:25 RBC 3.53 10^6/ul (4.0-5.4) L 08/02/17 05:25 Hgb 10.3 g/dl (12.0-16.0) L 08/02/17 05:25 Hct 31 % (35-47) L 08/02/17 05:25 MCV 87 fL (80-97) 08/02/17 05:25 MCH 29 pg (27-31) 08/02/17 05:25 MCHC 34 g/dl (31-36) 08/02/17 05:25 RDW 13 % (10.5-15) 08/02/17 05:25 Plt Count 218 10^3/ul (150-450) 08/02/17 05:25 MPV 7 um3 (7.4-10.4) L 08/02/17 05:25 Neut % (Auto) 85.8 % (38-83) H 08/02/17 05:25 Lymph % (Auto) 4.8 % (25-47) L 08/02/17 05:25 Victoria % (Auto) 8.5 % (1-9) 08/02/17 05:25 Eos % (Auto) 0.5 % (0-6) 08/02/17 05:25 Baso % (Auto) 0.4 % (0-2) 08/02/17 05:25 Absolute Neuts (auto) 10.4 10^3/ul (1.5-7.7) H 08/02/17 05:25 Absolute Lymphs (auto) 0.6 10^3/ul (1.0-4.8) L 08/02/17 05:25 Absolute Monos (auto) 1.0 10^3/ul (0-0.8) H 08/02/17 05:25 Absolute Eos (auto) 0.1 10^3/ul (0-0.6) 08/02/17 05:25 Absolute Basos (auto) 0 10^3/ul (0-0.2) 08/02/17 05:25 Absolute Nucleated RBC 0 10^3/ul 08/02/17 05:25 Nucleated RBC % 0 08/02/17 05:25 INR (Anticoag Therapy) 0.86 (0.89-1.11) L 07/31/17 17:58 APTT 26.7 seconds (26.0-36.3) 07/31/17 17:58 Sodium 134 mmol/L (133-145) 08/02/17 05:25 Potassium 3.2 mmol/L (3.5-5.0) L 08/02/17 05:25 Chloride 102 mmol/L (101-111) 08/02/17 05:25 Carbon Dioxide 27 mmol/L (22-32) 08/02/17 05:25 Anion Gap 5 mmol/L (2-11) 08/02/17 05:25 BUN 12 mg/dL (6-24) 08/02/17 05:25 Creatinine 0.88 mg/dL (0.51-0.95) 08/02/17 05:25 Est GFR ( Amer) 81.0 (>60) 08/02/17 05:25 Est GFR (Non-Af Amer) 63.0 (>60) 08/02/17 05:25 BUN/Creatinine Ratio 13.6 (8-20) 08/02/17 05:25 Glucose 107 mg/dL (70-100) H 08/02/17 05:25 Calcium 7.7 mg/dL (8.6-10.3) L 08/02/17 05:25 Magnesium 2.1 mg/dL (1.9-2.7) 07/31/17 17:58 Total Bilirubin 0.30 mg/dL (0.2-1.0) 08/02/17 05:25 AST 29 U/L (13-39) 08/02/17 05:25 ALT 9 U/L (7-52) 08/02/17 05:25 Alkaline Phosphatase 54 U/L (34-104) 08/02/17 05:25 Total Protein 5.3 g/dL (6.4-8.9) L 08/02/17 05:25 Albumin 3.2 g/dL (3.2-5.2) 08/02/17 05:25 Globulin 2.1 g/dL (2-4) 08/02/17 05:25 Albumin/Globulin Ratio 1.5 (1-3) 08/02/17 05:25 TSH 0.44 mcIU/mL (0.34-5.60) 07/31/17 17:58 incision: c/d PE: NVI Assessment: s/p left hip mackenzie; POD #1 Plan: 1) Hospitalist co-managing 2) PT/OT-WBAT 3) Ancef for 24 hours post-op 4) Heparin/Coumadin/SCD's for DVT prophylaxis
[2017-08-02] MEDS: QUEtiapine TAB* 100 MG PO SCH ×2 (08:24→20:50)
[2017-08-02] MEDS: CMCS:Escitalopram (NF) 10 MG TAB PO SCH (08:24)
[2017-08-02] MEDS: Heparin VIAL(*) 5000 UNITS/ML VIAL (FIVE THOUSAND) SUBCUT SCH ×2 (08:24→20:52)
[2017-08-02] MEDS ORDERED: Bisacodyl SUPP* 10 MG SUPP PR PRN (08:35)
[2017-08-02] MEDS: Docusate CAP* 100 MG PO SCH ×2 (09:52→20:50)
[2017-08-02] MEDS: Magnesium Hydroxide LIQ* 30 ML UDC PO SCH ×2 (09:52→20:49)
--- NOTE | 2017-08-02 14:03 | PN ---
Subjective Date of Service: 08/02/17 Interval History: Ms. Cash states that she is feeling reasonably well today. She doesn't feel that she will be ready to go home tomorrow due to pain in her hip with standing and transferring. She denies other complaint including chest pain, SOB , nausea, or abdominal pain. Family History: Unchanged from Admission Social History: Unchanged from Admission Past Medical History: Unchanged from Admission Objective Active Medications: Acetaminophen (Tylenol Tab*) 650 mg PO Q6H PRN Hydrocodone Bitart/Acetaminophen ([place] 5-325 Tab*) 2 tab PO Q4H PRN Atorvastatin Calcium (Lipitor*) 10 mg PO QPM [facility] Bisacodyl (Dulcolax Supp*) 10 mg [place] DAILY PRN Docusate Sodium (Colace Cap*) 100 mg PO BID [facility] Escitalopram Oxalate (Lexapro (Nf)) 20 mg PO DAILY [facility] Heparin Sodium (Porcine) (Heparin Vial(*)) 5,000 units SUBCUT BID [facility] Sodium Chloride (Ns 0.9% 1000 Ml*) 1,000 mls @ 75 mls/hr IV PER RATE [facility] Cefazolin Sodium 1 gm/ Sodium (Chloride) 50 mls @ 200 mls/hr IVPB Q8H [facility] Levothyroxine Sodium (Synthroid Tab*) 112 mcg PO DAILY@0600 [facility] Magnesium Hydroxide (Milk Of Magnesia Liq*) 30 ml PO BID [facility] Melatonin (Melatonin (Nf)) 6 mg PO BEDTIME PRN; Protocol Mirtazapine (Remeron Tab*) 45 mg PO BEDTIME [facility] Morphine Sulfate (Morphine Inj (Syringe)*) 2 mg IV Q2H PRN Ondansetron HCl (Zofran Inj*) 4 mg IV Q4H PRN Oxycodone/Acetaminophen (Percocet 5/325 Tab*) 1 tab PO Q4H PRN Oxycodone/Acetaminophen (Percocet 5/325 Tab*) 2 tab PO Q4H PRN Pharmacy Profile Note (Coumadin Daily Reminder*) 1 note FOLLOW UP 1700 [facility] Quetiapine Fumarate (Seroquel Tab*) 100 mg PO BID [facility] Warfarin Sodium (Coumadin Tab(*)) 6 mg PO ONCE@1700 [facility] Vital Signs: Temp Pulse Resp BP Pulse Ox 98 F 96 16 140/80 93 08/02/17 08:38 08/02/17 08:38 08/02/17 12:50 08/02/17 08:38 08/02/17 08:38 Oxygen Devices in Use Now: Nasal Cannula Appearance: Female sitting up in bed in NAD Ears/Nose/Mouth/Throat: NL Teeth, Lips, Gums, Mucous Membranes Moist Neck: NL Appearance and Movements; NL JVP Respiratory: Symmetrical Chest Expansion and Respiratory Effort, Clear to Auscultation Cardiovascular: NL Sounds; No Murmurs; No JVD, No Edema Abdominal: NL Sounds; No Tenderness; No Distention Lymphatic: No Cervical Adenopathy Extremities: No Edema Skin: No Rash or Ulcers Neurological: Alert and Oriented x 3, NL Muscle Strength and Tone Nutrition: Taking PO's Result Diagrams: 08/02/17 05:25 08/02/17 05:25 Additional Lab and Data: . Assess/Plan/Problems-Billing Ms. Cash is a 72yo female with a PMH significant for osteopenia, depression, HTN, HLD who presents with a mechanical fall and a left femoral neck fracture on hip XR, now s/p left hip hemiarthroplasty on 08/01. - Patient Problems (1) Left displaced femoral neck fracture Comment: - Management per otho. - Pain meds prn with bowel regimen. PT/OT. Monitor H/H. (2) HTN (hypertension) Comment: - SBP 140s. - Resume amlodipine. (3) Depression Comment: - Patient was admitted previously to this institution for suicide attempt. Continue home Lexapro, Remeron, and Quetiapine. (4) HLD (hyperlipidemia) Comment: - Continue atorvastatin. (5) S/P thyroidectomy Comment: - TSH low. Continue levothyroxine. (6) DNR (do not resuscitate) Comment: (7) DVT prophylaxis Comment: - Heparin SQ. Status and Disposition: Patient is admitted inpatient for hip fracture. Anticipate short term rehab needs.
--- NOTE | 2017-08-02 14:06 | OP ---
DATE OF OPERATION: 08/01/17 - ROOM #349 DATE OF : 43 ATTENDING SURGEON: Jorge A Tellez MD ASSISTANTS: 1. Maribeth Shaw RPA 2. KAITLIN Maharaj ANESTHESIOLOGIST: Stefanie Gregory MD ANESTHESIA: Spinal sedation. PRE-OPERATIVE DIAGNOSIS: Left hip displaced femoral neck fracture. POST-OPERATIVE DIAGNOSIS: Left hip displaced femoral neck fracture. OPERATIVE PROCEDURE: Left hip uncemented bipolar hemiarthroplasty. ESTIMATED BLOOD LOSS: 200 mL. COMPLICATIONS: None. HARDWARE: Soren #9 M/L taper, 45 mm bipolar cup, +3.5 28 mm head. SUMMARY: Ms. Cash is a 72-year-old female who had fallen yesterday evening, sustaining a displaced left femoral neck fracture. She was admitted in the evening to the hospitalist service, and I discussed with her this morning that a hemiarthroplasty should work well to allow her to get up and not have to worry about fracture healing. I discussed with her we would try an uncemented implant, but if her bone was not sufficient to hold on to the implant we would then do a cemented hemiarthroplasty. Risks of surgery such as infection, scar formation, stiffness, DVT, pulmonary embolism, hardware failure , leg length discrepancy, and instability were some of the risks discussed. She had wished to proceed. DESCRIPTION OF PROCEDURE: The patient was brought to the OR and spinal anesthesia was introduced. She was then rolled into the right lateral decubitus position. Axillary roll was placed and she reported that she was quite comfortable. Left hip area was prepped and then draped. An incision was made over the greater trochanter, extended proximally and distally for about 8 cm. Incision was carried down through the skin and subcutaneous tissues. She reported that she had fallen directly on the hip and could be seen where she was ecchymotic in the soft tissues over the fascia. The fascia was exposed and sharply incised. Similarly, she was ecchymotic in the bursa as well. Bursa was taken down using electrocautery and with palpation, I could feel under the gluteus medius/gluteus minimus and feel the piriformis. Hohmann was placed under this and she had torn some of the external rotators but not all. Piriformis was released and I attempted to do a T- capsulotomy according to how some of her tissues had already torn. With the tissues having been pulled back , I got caught into the posterior medial circumflex and eventually had to ligate the artery. Cleanup cut was made on the femoral neck and this gave me nice exposure to the fracture to the fractured head. Unfortunately I had difficulty trying to seat the cork screw and after several attempts that cork screw pulled out quite a bit of the bone. Eventually though I was able to leave her out the femoral head and it measured 45 mm in diameter. Cup was swept for loose pieces and copiously pulse lavaged. 45 was placed and that had a nice snugfit 46. She was trialed with a 44, 45 and 46 and I had liked the 45 fit best. The 44 had just a little bit of play in the 40, I was not sure that the 46 had fully seated. Attention was turned to the femur. Box osteotome was used to open the femoral canal intramedullary and the canal finder was easily passed. Beginning with the 4 broach, she was progressively broached and at the 7.5, I thought I had a nice fit. This corresponded well to preoperative templating. She was trialed with a +3 and +7 and I thought that 3 gave her good stability and good motion. When removing the trial implants though the broach was just a little bit loose. She was then broached with a 9 and this sat well. 9 M/L taper was then impacted into place. She was then trialed with the trial instrumentation one more time and taken through range of motion to make sure that she was stable. She only started to lever out in full adduction at about 30 degrees and could be easily hyperflexed and extended. With removing the trial head, the stem was nice and stable. A 22-mm head followed by the polyethylene and then the end cap were all placed. Hip was then easily located. Capsule and short external rotators were repaired together to the posterior aspect of the greater trochanter. Wound was copiously pulse lavaged. Fascia was repaired using interrupted #1 Vicryl sutures distally and over the muscle, I used a running Vicryl stitch. Wound was again copiously pulse lavaged and subcutaneous tissues were approximated with 2-0 Vicryl. Skin was closed using yolanda. Sterile dressing and an abduction pillow were applied in the OR. The patient was then rolled on to the hospital bed and was stable on transfer to the recovery room. [id number]/[facility] #: [id number] NATE
[2017-08-02] MEDS ORDERED: Warfarin TAB(*) 4 MG PO ONE (17:00)
[2017-08-02] MEDS ORDERED: Warfarin TAB(*) 6 MG PO ONE (17:00)
[2017-08-02] MEDS: Atorvastatin* 10 MG TAB PO SCH (17:04)
[2017-08-02] MEDS: Mirtazapine TAB* 15 MG PO SCH (20:50)
[2017-08-02] MEDS: Morphine INJ* 2 MG/ML 1 ML SYRINGE (TWO MG - NEW SYRINGE VERSION) IV PRN (22:23)
[2017-08-03] MEDS ORDERED: diPHENhydraMINE PO* 25 MG PO ONE (00:19)
[2017-08-03] MEDS ORDERED: diPHENhydraMINE PO* 25 MG ONE (00:44)
[2017-08-03] MEDS ORDERED: LORazepam TAB(*) 0.5 MG PO ONE (02:28)
[2017-08-03] MEDS ORDERED: LORazepam TAB(*) 0.5 MG ONE (02:33)
[2017-08-03] MEDS: oxyCODONE/Acetamin 5/325 MG* TAB PO PRN (04:21)
[2017-08-03 05:38] LABS: Hematocrit 27 % (35-47); Hemoglobin 9.2 g/dl (12.0-16.0)
[2017-08-03] MEDS: Levothyroxine TAB* 112 MCG TAB PO SCH (05:48)
[2017-08-03 05:52] LABS: BUN/Creatinine Ratio 15.5 (8-20); Calcium 8.2 mg/dL (8.6-10.3); EGFR African American 72.4 (>60); EGFR Non-African American 56.3 (>60); Potassium 3.2 mmol/L (3.5-5.0)
[2017-08-03] MEDS ORDERED: amLODIPine TAB* 5 MG PO SCH (09:00)
[2017-08-03] MEDS: Heparin VIAL(*) 5000 UNITS/ML VIAL (FIVE THOUSAND) SUBCUT SCH (09:24)
[2017-08-03] MEDS: Docusate CAP* 100 MG PO SCH (09:24)
[2017-08-03] MEDS: Magnesium Hydroxide LIQ* 30 ML UDC PO SCH (09:24)
[2017-08-03] MEDS: QUEtiapine TAB* 100 MG PO SCH (09:24)
[2017-08-03] MEDS: CMCS:Escitalopram (NF) 10 MG TAB PO SCH (09:25)
--- NOTE | 2017-08-03 11:18 | PN ---
Progress Note - Progress Note Date of Service: 08/03/17 SOAP: Subjective: 72 y/o female s/p R mackenzie 08/[address] Tellez. Patient overall feeling well, c/ o mild lightheadedness with standing, quickly resolved with movement. Pain controlled overall. VSS, afebrile overnight. Objective: General- Well appearing, NAD, resting comfortably in chair, AO MSK- Dressing removed, incision c/d/i, no drainage noted, yolanda intact, new dressing placed, + DF/PF b/l, PT2+, SITLT b/l. Vital Signs Temp 98.1 F 08/03/17 07:29 Pulse 104 08/03/17 07:53 Resp 16 08/03/17 11:02 BP 115/63 08/03/17 07:29 Pulse Ox 95 08/03/17 07:58 Intake & Output 08/02/17 08/03/17 08/03/17 18:59 06:59 18:59 Intake Total 3003 820 320 Output Total 450 1100 Balance 2553 -280 320 Intake: IV Fluids 1673 ABX - CEFAZOLIN 177 NS (0.9%) 1496 Oral 1330 820 320 Output: Johns 450 1100 Other: # Bowel Movements 0 Assessment: Stable 72 y/o female s/p R mackenzie 08/[address] Tellez. Plan: - DVT prophylaxis- heparin while inhouse, coumadin with INR- 1.38 - Tranfer to PMRU today - Continue PT - Contine current pain regimen - FOllow up with DR. Tellez within 3-4 weeks for examination, repeat x-rays - yolanda to be remove 12-14 days post-op by VNS or PMRU
[2017-08-03 11:25] VITALS: BP 100/53
--- NOTE | 2017-08-03 16:47 | PN ---
Subjective Date of Service: 08/03/17 Interval History: Ms. Cash is confused but she denies any specific complaint today. She is looking forward to her transfer to [facility] today. Family History: Unchanged from Admission Social History: Unchanged from Admission Past Medical History: Unchanged from Admission Objective Vital Signs: Temp Pulse Resp BP Pulse Ox 98.8 F 94 18 100/53 94 08/03/17 11:21 08/03/17 11:21 08/03/17 11:26 08/03/17 11:21 08/03/17 11:26 Oxygen Devices in Use Now: Nasal Cannula Appearance: Female lying in bed in NAD Eyes: No Scleral Icterus Ears/Nose/Mouth/Throat: Mucous Membranes Moist Neck: Trachea Midline Respiratory: Symmetrical Chest Expansion and Respiratory Effort, Clear to Auscultation Cardiovascular: NL Sounds; No Murmurs; No JVD, No Edema Abdominal: NL Sounds; No Tenderness; No Distention Lymphatic: No Cervical Adenopathy Extremities: No Edema Skin: No Rash or Ulcers Neurological: NL Muscle Strength and Tone, - - Alert, oriented to self Nutrition: Taking PO's Result Diagrams: 08/03/17 05:18 08/03/17 05:18 Additional Lab and Data: . Assess/Plan/Problems-Billing Ms. Cash is a 72yo female with a PMH significant for osteopenia, depression, HTN, HLD who presents with a mechanical fall and a left femoral neck fracture on hip XR, now s/p left hip hemiarthroplasty on 08/01. - Patient Problems (1) Left displaced femoral neck fracture Comment: - Management per otho. - Pain meds prn with bowel regimen. PT/OT. Monitor H/H. (2) HTN (hypertension) Comment: - SBP 140s. - Continue amlodipine. (3) Depression Comment: - Patient was admitted previously to this institution for suicide attempt. Continue home Lexapro, Remeron, and Quetiapine. (4) HLD (hyperlipidemia) Comment: - Continue atorvastatin. (5) S/P thyroidectomy Comment: - TSH low. Continue levothyroxine. (6) DNR (do not resuscitate) Comment: (7) DVT prophylaxis Comment: - Heparin SQ. Status and Disposition: Patient is admitted inpatient for hip fracture. Discharge to [facility].
--- NOTE | 2017-08-04 10:50 | DS ---
CC: Germán Miguel NP * DISCHARGE SUMMARY: DATE OF ADMISSION: 07/31/17 DATE OF DISCHARGE: 08/03/17 PRIMARY CARE PROVIDER: Germán Miguel NP. ATTENDING PHYSICIAN: Dr. Markie Carbone * (dictation provided by Douglas Obrien NP). PRIMARY DIAGNOSIS: Left femoral neck fracture, status post left hip uncemented bipolar hemiarthroplasty. SECONDARY DIAGNOSES: 1. Depression. 2. Hypertension. 3. Thyroidectomy for thyroid nodules, found to have thyroid cancer. 4. Osteopenia. 5. Hyperlipidemia. 6. Thyroidectomy. 7. History of suicidal ideation and depression. MEDICATIONS: At the time of discharge are: 1. Aspirin 81 mg p.o. daily. 2. Melatonin as needed. 3. Docusate 100 mg p.o. daily. 4. Buspirone 10 mg p.o. t.i.d. 5. Amlodipine 10 mg p.o. daily. 6. Lipitor 10 mg p.o. q.p.m. 7. Lexapro 20 mg p.o. daily. 8. Quetiapine 100 mg p.o. b.i.d. 9. Remeron 45 mg p.o. at bedtime. 10. Levothyroxine 112 mcg p.o. daily. HOSPITAL COURSE: Ms. Cash is a 72-year-old female with past medical history as outlined above, who presented to the hospital on 07/31/17 after a fall at home. Please see dictated H and P from HERNANDEZ Ascencio for complete details. In brief, the patient had an apparent mechanical fall at home. In the emergency room, she was found to have a left femoral neck fracture. Ms. Cash was admitted to the hospital. She was taken to the OR by Dr. Tellez on 08/01/17. I refer you to his note for complete details, but in brief , the patient had no significant complications. Postoperatively, Ms. Cash has been doing well. We have resumed all her home medications. Her blood pressure has been stable. Her hemoglobin has fallen, but is stable today at 9.2 with a hematocrit of 27. Ms. Cash has been evaluated by [facility] based on her slow but good progress with rehab here inpatient. She has been deemed to be a good candidate for short -term intensive inpatient rehabilitation. Ms. Cash is medically stable for discharge to PMRU. DISPOSITION: PMRU. DIET: Low salt. ACTIVITY: As tolerated with hip precautions per routine. FOLLOWUP PLANS: Please follow up per routine with your primary care provider, Germán Miguel NP after this hospitalization on PM[facility]. TIME SPENT: Approximately 60 minutes was spent on the discharge of this patient , more than half the time was spent with the patient at the bedside reviewing the events leading up to this hospitalization, performing the physical examination, and reviewing my plan of care. CAITLIN OBRIEN NP [id number]/[facility] #: [id number] NATE
== END 2017-08-03 11:00 | DRG 470 ==
LOC: ED 16:52 → SSU 19:05
PROVIDERS: ADMIT Internal Medicine; ATTEND Internal Medicine
PROC: 0SRS03A Replacement of Left Hip Joint, Femoral Surface with Ceramic Synthetic Substitute, Uncemented, Open Approach (ICD-10-PCS; 2017-08-01)
PROC: 0T9B70Z Drainage of Bladder with Drainage Device, Via Natural or Artificial Opening (ICD-10-PCS; principal; 2017-08-01 18:00)
DX: S72.032A Displaced midcervical fracture of left femur, initial encounter for closed fracture (principal); E78.5 Hyperlipidemia, unspecified; F32.9 Major depressive disorder, single episode, unspecified; E89.0 Postprocedural hypothyroidism; Y83.6 Removal of other organ (partial) (total) as the cause of abnormal reaction of the patient, or of later complication, without mention of misadventure at the time of the procedure; I10 Essential (primary) hypertension; M85.80 Other specified disorders of bone density and structure, unspecified site; Z85.850 Personal history of malignant neoplasm of thyroid; Z88.2 Allergy status to sulfonamides; Z97.4 Presence of external hearing-aid; Z83.3 Family history of diabetes mellitus; Z87.891 Personal history of nicotine dependence; Z80.0 Family history of malignant neoplasm of digestive organs; Z80.1 Family history of malignant neoplasm of trachea, bronchus and lung; R33.9 Retention of urine, unspecified; R09.02 Hypoxemia; Z66 Do not resuscitate; R41.0 Disorientation, unspecified; W10.9XXA Fall (on) (from) unspecified stairs and steps, initial encounter; Z91.81 History of falling; M25.422 Effusion, left elbow; Z79.82 Long term (current) use of aspirin; Y92.098 Other place in other non-institutional residence as the place of occurrence of the external cause
CPT/HCPCS: 36415; 71010; 80048; 80053; 83735; 84443; 85014; 85018; 85025; 85027; 85610; 85730; 93005; 94760; A9270-GY; J0690; J1170; J1644; J2250; J2270; J2405; J3010; J3480

== ENCOUNTER 2017-08-03 07:48 | Inpatient (IN) | payer MEDICARE, BC ==
--- NOTE | 2017-08-03 12:57 | PMRUTEAM ---
PMRU: Goals Current Status: Physical Therapy: Current Status Bed Mobility Assistance Min Assist Transfer Moblility Assistance Contact Guard Ambulation Assistance Contact guard 5 feet Ambulation Assistive Devices Rolling Walker Stairs Assistance N/A Stairs Recommended Devices Straight Cane,One Rail Number of Stairs 6 Rec Therapy: Current Status Summary of Assessment and Pt. was open to conversation - engaged throughout Clinical Impression and identified with interests along with active involvement in them prior to admission. Pt. has leisure activities in her room and was open to continued leisure visits. Treatment Goals Pt. will engage in leisure activities while on the unit. Treatment Plan Provide RT services and encourage involvement. OCCUPATIONAL THERAPY: CG Toilet transfers to BSC, Set up UB ADLs, Total assistance LB ADLs, Max Assist Toileting Goals: PHYSICAL THERAPY: Mod Indep Transfers, Ambulation 150 feet with RW, Up and Down 5 stairs OCCUPATIONAL THERAPY: Modified Indep toileting, toilet transfers, ADLs NURSING: Independent with medications, bowel and bladder management Care Plan: Patient will go home with home services and family support Medicine Note: Length of Stay: 10 days Anticipated Discharge Destination: Tentative Discharge Date: 08/14/17 Discharged to: Home
[2017-08-03] MEDS ORDERED: Acetaminophen TAB* 325 MG PO PRN (13:29)
[2017-08-03] MEDS ORDERED: Senna TAB PO PRN (13:29)
[2017-08-03] MEDS ORDERED: Bisacodyl SUPP* 10 MG SUPP PR PRN (13:29)
[2017-08-03] MEDS: oxyCODONE/Acetamin 5/325 MG* TAB PO PRN ×2 (15:06→22:48)
[2017-08-03] MEDS: Atorvastatin* 10 MG TAB PO SCH (17:14)
[2017-08-03] MEDS ORDERED: Warfarin TAB(*) 4 MG PO ONE (19:00)
[2017-08-03] MEDS: Docusate CAP* 100 MG PO SCH (20:44)
[2017-08-03] MEDS: QUEtiapine TAB* 100 MG PO SCH (20:44)
[2017-08-03] MEDS: Mirtazapine TAB* 15 MG PO SCH (20:44)
[2017-08-03] MEDS: Heparin VIAL(*) 5000 UNITS/ML VIAL (FIVE THOUSAND) SUBCUT SCH (20:45)
[2017-08-03] MEDS ORDERED: CMC:Melatonin (NF) 3 MG TAB PO PRN (21:00)
[2017-08-04 01:27] LABS: Urine Bacteria Absent (Absent); Urine Bilirubin Negative (Negative); Urine Glucose Negative (Negative); Urine Nitrite Negative (Negative)
--- NOTE | 2017-08-04 02:36 | HP ---
ADMISSION HISTORY AND PHYSICAL: DATE OF ADMISSION: 08/03/17 REASON FOR REFERRAL: Left hip fracture. HISTORY OF PRESENT ILLNESS: Olga Cash is a 72-year-old female. She has a history significant for hypothyroidism after having had a thyroidectomy. She also has a history of hypertension, hyperlipidemia as well as depression. She tripped off her porch at her home and she landed on a concrete patio. She was unable to get up. She called for her , but her is hard of hearing and the windows were shut because of the cold weather. She lay on the ground for 15 to 30 minutes until her noticed she was not in the house. Her came out and found her on the ground. She was brought to the hospital emergency room. X- rays were taken, which showed a left femoral neck fracture. She also had a chest x- ray done as well as x-ray in her left elbow. The elbow did not show any fractures. The chest x-ray showed probable COPD. No pneumonia. The patient was seen in consultation with Orthopedic Surgery. She was taken to the operating room on 08/01/17. She had fallen on the . She went to the operating room with Dr. Tellez and underwent an uncemented bipolar hemiarthroplasty. Postoperatively, she was started on Coumadin for DVT prophylaxis. She is felt to have physical therapy and occupational therapy needs. She is now being admitted for inpatient rehab system and return to independent living. PAST MEDICAL HISTORY: Significant for the aforementioned depression as well as osteoporosis, hypothyroidism and hypercholesterolemia. CURRENT MEDICATIONS: Include: 1. Norvasc. 2. Lipitor. 3. She is on Synthroid. 4. Heparin for DVT prophylaxis. 5. Lexapro. 6. Remeron. 7. Melatonin. 8. Percocet for pain control. 9. Seroquel. 10. Coumadin for DVT prophylaxis. ALLERGIES: The patient has allergies to SULFA drugs. SOCIAL HISTORY: She is a former smoker, former drinker. She lives with her in a one-delmi house with 2 steps to enter. REVIEW OF SYSTEMS: The patient reports no current shortness of breath or chest pain. PHYSICAL EXAMINATION VITAL SIGNS: The patient's temperature is 98.8, blood pressure is 100/53, pulse is 94 and respirations 16. HEENT: Her extraocular movements are intact. Tongue is midline. NECK: Supple with no lymphadenopathy. LUNGS: Sound clear to auscultation bilaterally. HEART: Heart sounds are regular, S1 and S2 are audible. ABDOMEN: Soft and nontender. EXTREMITIES: Her left hip has a wound, which is clean and dry. Peripheral pulses are intact. NEUROLOGIC: She is awake, alert, and oriented. Muscle strength is about 3/5 in the left leg. Otherwise it is 5/5. FUNCTIONAL EXAM: She transfers with min assist. ASSESSMENT: Hemiarthroplasty of left hip following a left hip fracture. PLAN: We are going to integrate her into a comprehensive and therapeutic rehab program with the following goals. 1. Physical Therapy will see the patient. They are going to work on functional transfer training, ambulation training with a walker. 2. Occupational Therapy will see the patient, work on her activities of daily living including toileting and toilet transfers. 3. Coumadin for DVT prophylaxis. 4. Adequate analgesia. 5. Her bowels will be regulated. 6. Advance directives: The patient has a MOLST form and requests DNR status. I have written a DNR order in the chart. 7. For her depression, we are going to continue her Lexapro and her Remeron. 8. For her hypothyroidism, continue Synthroid. 9. Family training as appropriate. 10. Home with appropriate services. ESTIMATED LENGTH OF STAY: 10 to 12 days. [id number]/[facility] #: [id number] [facility] SYSTEMChen[facility]
[2017-08-04] MEDS: Levothyroxine TAB* 112 MCG TAB PO SCH (04:31)
[2017-08-04] MEDS: oxyCODONE/Acetamin 5/325 MG* TAB PO PRN ×5 (04:31→21:34)
[2017-08-04 07:23] LABS: Hematocrit 25 % (35-47); Hemoglobin 8.7 g/dl (12.0-16.0); Mean Corpuscular HGB Conc 34 g/dl (31-36); Mean Corpuscular Hemoglobin 30 pg (27-31); Mean Corpuscular Volume 86 fL (80-97); Mean Platelet Volume 8 um3 (7.4-10.4); Red Blood Count 2.95 10^6/ul (4.0-5.4); Red Cell Distribution Width 14 % (10.5-15); White Blood Count 9.4 10^3/ul (3.5-10.8)
[2017-08-04] MEDS ORDERED: Pneumococcal *Vac Polyvalent 0.5 ML VIAL IM ONE (09:00)
[2017-08-04] MEDS: QUEtiapine TAB* 100 MG PO SCH ×2 (09:57→21:35)
[2017-08-04] MEDS: Docusate CAP* 100 MG PO SCH ×2 (09:57→21:34)
[2017-08-04] MEDS: CMC:Escitalopram (NF) 10 MG TAB PO SCH (09:57)
[2017-08-04] MEDS: amLODIPine TAB* 5 MG PO SCH (09:57)
[2017-08-04] MEDS: Heparin VIAL(*) 5000 UNITS/ML VIAL (FIVE THOUSAND) SUBCUT SCH ×2 (09:58→21:35)
[2017-08-04] MEDS: Magnesium Hydroxide LIQ* 30 ML UDC PO PRN (14:35)
--- NOTE | 2017-08-04 16:22 | PN ---
Progress Note - Progress Note Date of Service: 08/04/17 Note: Olga visited. She is tired now but worked with therapy. Therapy notes read and reviewed. She spiked a small fever last night. U/A not all that impressive. WBC within normal limits. On Coumadin, INR still low. Current Medications Acetaminophen (Tylenol Tab*) 650 mg PO Q6H PRN PRN Reason: FEVER/PAIN Last Admin: 08/04/17 01:07 Dose: 650 mg Amlodipine Besylate (Norvasc Tab*) 10 mg PO DAILY [facility] Last Admin: 08/04/17 09:57 Dose: 10 mg Atorvastatin Calcium (Lipitor*) 10 mg PO 1700 [facility] Last Admin: 08/03/17 17:14 Dose: 10 mg Bisacodyl (Dulcolax Supp*) 10 mg [place] DAILY PRN PRN Reason: CONSTIPATION Docusate Sodium (Colace Cap*) 100 mg PO BID [facility] Last Admin: 08/04/17 09:57 Dose: 100 mg Escitalopram Oxalate (Lexapro (Nf)) 20 mg PO DAILY [facility] Last Admin: 08/04/17 09:57 Dose: 20 mg Heparin Sodium (Porcine) (Heparin Vial(*)) 5,000 units SUBCUT Q12HR [facility] Last Admin: 08/04/17 09:58 Dose: 5,000 units Levothyroxine Sodium (Synthroid Tab*) 112 mcg PO DAILY@0600 [facility] Last Admin: 08/04/17 04:31 Dose: 112 mcg Magnesium Hydroxide (Milk Of Magnesia Liq*) 30 ml PO Q6H PRN PRN Reason: CONSTIPATION Last Admin: 08/04/17 14:35 Dose: 30 ml Melatonin (Melatonin (Nf)) 6 mg PO BEDTIME PRN PRN Reason: SLEEP Mirtazapine (Remeron Tab*) 45 mg PO BEDTIME [facility] Last Admin: 08/03/17 20:44 Dose: 45 mg Oxycodone/Acetaminophen (Percocet 5/325 Tab*) 1 tab PO Q4H PRN PRN Reason: PAIN - MODERATE TO SEVERE Last Admin: 08/03/17 22:48 Dose: 1 tab Oxycodone/Acetaminophen (Percocet 5/325 Tab*) 2 tab PO Q4H PRN PRN Reason: PAIN - SEVERE Last Admin: 08/04/17 13:18 Dose: 2 tab Pharmacy Profile Note (Coumadin Daily Reminder*) 1 note FOLLOW UP 1700 [facility] Quetiapine Fumarate (Seroquel Tab*) 100 mg PO BID [facility] Last Admin: 08/04/17 09:57 Dose: 100 mg Senna (Senokot Tab*) 2 tab PO BEDTIME PRN PRN Reason: CONSTIPATION Warfarin Sodium (Coumadin Tab(*)) 6 mg PO DAILY@1700 [facility] PRN Reason: Protocol Laboratory Results - last 24 hr 08/04/17 08/04/17 08/04/17 01:07 06:33 06:33 WBC 9.4 RBC 2.95 L Hgb 8.7 L Hct 25 L MCV 86 MCH 30 MCHC 34 RDW 14 Plt Count 248 MPV 8 Neut % (Auto) 79.8 Lymph % (Auto) 9.0 L [place] % (Auto) 9.6 H Eos % (Auto) 1.3 Baso % (Auto) 0.3 Absolute Neuts (auto) 7.5 Absolute Lymphs (auto) 0.8 L Absolute Monos (auto) 0.9 H Absolute Eos (auto) 0.1 Absolute Basos (auto) 0 Absolute Nucleated RBC 0 Nucleated RBC % 0 INR (Anticoag Therapy) 1.06 Urine Color Yellow Urine Appearance Cloudy Urine pH 6.0 Ur Specific [place] 1.012 Urine Protein 1+(30 mg/dl) H Urine Ketones Negative Urine Blood 2+ H Urine Nitrate Negative Urine Bilirubin Negative Urine Urobilinogen Negative Ur Leukocyte Esterase Trace H Urine WBC (Auto) 1+(6-10/hpf) H Urine RBC (Auto) 2+(6-10/hpf) H Ur Squamous Epith Cells Present H Urine Bacteria Absent Urine Glucose Negative Vital Signs Temp Pulse Resp BP Pulse Ox 97.5 F 83 18 108/64 99 08/04/17 06:22 08/04/17 06:22 08/04/17 14:48 08/04/17 06:22 08/04/17 11:17 EXAM: LUNGS: Decreased BS HEART: Reg rhythm ABDOMEN: Soft, + BS EXTREMITIES: Wound on left leg clean ASSESSMENT/PLAN: 1. Left hip fracture: PT/OT. WBAT 2. DVT Prophylaxis: Coumadin, Heparin S/Q, check INR 3. Depression: Seroquel, Lexapro, Remeron 4. COPD: Supplemental O2, may need Spiriva 5. Analgesia: Percocet 6. Fever: Monitor urine culture, will get CXR if spikes again
[2017-08-04] MEDS: Atorvastatin* 10 MG TAB PO SCH (17:11)
[2017-08-04] MEDS: Warfarin TAB(*) 6 MG PO SCH (17:11)
[2017-08-04] MEDS: Mirtazapine TAB* 15 MG PO SCH (21:34)
[2017-08-05] MEDS: oxyCODONE/Acetamin 5/325 MG* TAB PO PRN ×5 (04:14→22:37)
[2017-08-05] MEDS: Levothyroxine TAB* 112 MCG TAB PO SCH (05:33)
[2017-08-05] MEDS: QUEtiapine TAB* 100 MG PO SCH ×2 (08:43→20:53)
[2017-08-05] MEDS: Docusate CAP* 100 MG PO SCH ×2 (08:43→20:53)
[2017-08-05] MEDS: CMC:Escitalopram (NF) 10 MG TAB PO SCH (08:43)
[2017-08-05] MEDS: amLODIPine TAB* 5 MG PO SCH (08:43)
[2017-08-05] MEDS: Magnesium Hydroxide LIQ* 30 ML UDC PO PRN (08:45)
[2017-08-05] MEDS: Heparin VIAL(*) 5000 UNITS/ML VIAL (FIVE THOUSAND) SUBCUT SCH (08:46)
[2017-08-05] MEDS: Warfarin TAB(*) 6 MG PO SCH (16:55)
[2017-08-05] MEDS: Atorvastatin* 10 MG TAB PO SCH (16:55)
--- NOTE | 2017-08-05 16:59 | PN ---
Progress Note - Progress Note Date of Service: 08/05/17 Note: Olga visited. Nursing notes read and reviewed. Olga notes she is constipated. She has had MOM twice with no results. Her hip is tsill painful. She is still on O2 via NC. Her CXR appears to show COPD. She has a 20 year smoking history, but quit in 1980 Current Medications Acetaminophen (Tylenol Tab*) 650 mg PO Q6H PRN PRN Reason: FEVER/PAIN Last Admin: 08/04/17 01:07 Dose: 650 mg Amlodipine Besylate (Norvasc Tab*) 10 mg PO DAILY [facility] Last Admin: 08/05/17 08:43 Dose: 10 mg Atorvastatin Calcium (Lipitor*) 10 mg PO 1700 [facility] Last Admin: 08/05/17 16:55 Dose: 10 mg Bisacodyl (Dulcolax Supp*) 10 mg [place] DAILY PRN PRN Reason: CONSTIPATION Docusate Sodium (Colace Cap*) 100 mg PO BID [facility] Last Admin: 08/05/17 08:43 Dose: 100 mg Escitalopram Oxalate (Lexapro (Nf)) 20 mg PO DAILY [facility] Last Admin: 08/05/17 08:43 Dose: 20 mg Lactulose (Lactulose*) 30 ml PO TID PRN PRN Reason: CONSTIPATION Levothyroxine Sodium (Synthroid Tab*) 112 mcg PO DAILY@0600 [facility] Last Admin: 08/05/17 05:33 Dose: 112 mcg Magnesium Hydroxide (Milk Of Magnesia Liq*) 30 ml PO Q6H PRN PRN Reason: CONSTIPATION Last Admin: 08/05/17 08:45 Dose: 30 ml Melatonin (Melatonin (Nf)) 6 mg PO BEDTIME PRN PRN Reason: SLEEP Mirtazapine (Remeron Tab*) 45 mg PO BEDTIME [facility] Last Admin: 08/04/17 21:34 Dose: 45 mg Oxycodone/Acetaminophen (Percocet 5/325 Tab*) 1 tab PO Q4H PRN PRN Reason: PAIN - MODERATE TO SEVERE Last Admin: 08/05/17 16:55 Dose: 1 tab Oxycodone/Acetaminophen (Percocet 5/325 Tab*) 2 tab PO Q4H PRN PRN Reason: PAIN - SEVERE Last Admin: 08/05/17 08:43 Dose: 2 tab Pharmacy Profile Note (Coumadin Daily Reminder*) 1 note FOLLOW UP 1700 [facility] Last Admin: 08/05/17 16:58 Dose: 1 note Quetiapine Fumarate (Seroquel Tab*) 100 mg PO BID [facility] Last Admin: 08/05/17 08:43 Dose: 100 mg Senna (Senokot Tab*) 2 tab PO BEDTIME PRN PRN Reason: CONSTIPATION Last Admin: 08/05/17 16:55 Dose: 2 tab Warfarin Sodium (Coumadin Tab(*)) 6 mg PO DAILY@1700 [facility] PRN Reason: Protocol Last Admin: 08/05/17 16:55 Dose: 6 mg Microbiology 08/04/17 01:07 Urine Urine Culture - Final Vital Signs Temp Pulse Resp BP Pulse Ox 97.7 F 91 22 131/66 91 08/05/17 15:51 08/05/17 15:51 08/05/17 16:55 08/05/17 15:51 08/05/17 15:51 EXAM: LUNGS: Decreased BS HEART: Reg rhythm ABDOMEN: Soft, + BS EXTREMITIES: Wound on left leg clean ASSESSMENT/PLAN: 1. Left hip fracture: PT/OT. WBAT 2. DVT Prophylaxis: Coumadin 6 mg, Hold Heparin S/Q, check INR in am 3. Depression: Seroquel, Lexapro, Remeron 4. COPD: Supplemental O2, may need Spiriva 5. Analgesia: Percocet 6. Fever: No further temp spikes. Continue to monitor. urine culture negative 7. Constipation: Lactulose PRN 8. Advanced Directives: Has MOLST, DNR
[2017-08-05] MEDS: Mirtazapine TAB* 15 MG PO SCH (20:53)
[2017-08-06] MEDS: Levothyroxine TAB* 112 MCG TAB PO SCH (05:17)
[2017-08-06] MEDS: oxyCODONE/Acetamin 5/325 MG* TAB PO PRN ×4 (05:18→23:35)
[2017-08-06 07:04] LABS: Hematocrit 26 % (35-47); Hemoglobin 8.8 g/dl (12.0-16.0); Mean Corpuscular HGB Conc 34 g/dl (31-36); Mean Corpuscular Hemoglobin 29 pg (27-31); Mean Corpuscular Volume 86 fL (80-97); Mean Platelet Volume 7 um3 (7.4-10.4); Red Blood Count 3.03 10^6/ul (4.0-5.4); Red Cell Distribution Width 14 % (10.5-15); White Blood Count 9.1 10^3/ul (3.5-10.8)
[2017-08-06 07:14] LABS: Add Diff/Slide Review? Slide Review Added; Comments Flag Yes
[2017-08-06 07:25] LABS: Albumin 3.2 g/dL (3.2-5.2); BUN/Creatinine Ratio 13.8 (8-20); Calcium 8.7 mg/dL (8.6-10.3); EGFR African American 114.9 (>60); EGFR Non-African American 89.3 (>60); Globulin 3.1 g/dL (2-4); Potassium 3.4 mmol/L (3.5-5.0); Total Bilirubin 0.5 mg/dL (0.2-1.0); Total Protein 6.3 g/dL (6.4-8.9)
[2017-08-06] MEDS: QUEtiapine TAB* 100 MG PO SCH ×2 (08:58→20:57)
[2017-08-06] MEDS: amLODIPine TAB* 5 MG PO SCH (08:58)
[2017-08-06] MEDS: Docusate CAP* 100 MG PO SCH ×2 (08:58→20:57)
[2017-08-06] MEDS: CMC:Escitalopram (NF) 10 MG TAB PO SCH (08:58)
[2017-08-06] MEDS ORDERED: Warfarin TAB(*) 2.5 MG PO SCH (12:44)
[2017-08-06] MEDS: Atorvastatin* 10 MG TAB PO SCH (16:57)
--- NOTE | 2017-08-06 17:04 | PN ---
Progress Note - Progress Note Date of Service: 08/06/17 Note: Olga visited. She was unable to void again this morning. Sanford catheter placed. We will start sanford clamping in a few days. Therapy notes read and reviewed. Some concern about her cognitive status and her score on BIMS and MOKA. INR slowly rising. Current Medications Acetaminophen (Tylenol Tab*) 650 mg PO Q6H PRN PRN Reason: FEVER/PAIN Last Admin: 08/04/17 01:07 Dose: 650 mg Amlodipine Besylate (Norvasc Tab*) 10 mg PO DAILY [facility] Last Admin: 08/06/17 08:58 Dose: 10 mg Atorvastatin Calcium (Lipitor*) 10 mg PO 1700 [facility] Last Admin: 08/06/17 16:57 Dose: 10 mg Bisacodyl (Dulcolax Supp*) 10 mg [place] DAILY PRN PRN Reason: CONSTIPATION Docusate Sodium (Colace Cap*) 100 mg PO BID [facility] Last Admin: 08/06/17 08:58 Dose: 100 mg Escitalopram Oxalate (Lexapro (Nf)) 20 mg PO DAILY [facility] Last Admin: 08/06/17 08:58 Dose: 20 mg Lactulose (Lactulose*) 30 ml PO TID PRN PRN Reason: CONSTIPATION Last Admin: 08/05/17 19:46 Dose: 30 ml Levothyroxine Sodium (Synthroid Tab*) 112 mcg PO DAILY@0600 [facility] Last Admin: 08/06/17 05:17 Dose: 112 mcg Magnesium Hydroxide (Milk Of Magnesia Liq*) 30 ml PO Q6H PRN PRN Reason: CONSTIPATION Last Admin: 08/05/17 08:45 Dose: 30 ml Melatonin (Melatonin (Nf)) 6 mg PO BEDTIME PRN PRN Reason: SLEEP Mirtazapine (Remeron Tab*) 45 mg PO BEDTIME [facility] Last Admin: 08/05/17 20:53 Dose: 45 mg Oxycodone/Acetaminophen (Percocet 5/325 Tab*) 1 tab PO Q4H PRN PRN Reason: PAIN - MODERATE TO SEVERE Last Admin: 08/06/17 09:15 Dose: 1 tab Oxycodone/Acetaminophen (Percocet 5/325 Tab*) 2 tab PO Q4H PRN PRN Reason: PAIN - SEVERE Last Admin: 08/05/17 08:43 Dose: 2 tab Pharmacy Profile Note (Coumadin Daily Reminder*) 1 note FOLLOW UP 1700 [facility] Last Admin: 08/06/17 17:01 Dose: 1 note Quetiapine Fumarate (Seroquel Tab*) 100 mg PO BID [facility] Last Admin: 08/06/17 08:58 Dose: 100 mg Senna (Senokot Tab*) 2 tab PO BEDTIME PRN PRN Reason: CONSTIPATION Last Admin: 08/05/17 16:55 Dose: 2 tab Warfarin Sodium (Coumadin Tab(*)) 7.5 mg PO DAILY@1700 [facility] PRN Reason: Protocol Last Admin: 08/06/17 16:57 Dose: 7.5 mg Laboratory Results - last 24 hr 08/06/17 08/06/17 08/06/17 06:42 06:42 06:42 WBC 9.1 RBC 3.03 L Hgb 8.8 L Hct 26 L MCV 86 MCH 29 MCHC 34 RDW 14 Plt Count 388 MPV 7 L Neut % (Auto) 78.1 Lymph % (Auto) 7.9 L [place] % (Auto) 11.2 H Eos % (Auto) 2.1 Baso % (Auto) 0.7 Absolute Neuts (auto) 7.1 Absolute Lymphs (auto) 0.7 L Absolute Monos (auto) 1.0 H Absolute Eos (auto) 0.2 Absolute Basos (auto) 0.1 Absolute Nucleated RBC 0 Nucleated RBC % 0 INR (Anticoag Therapy) 1.14 H Sodium 136 Potassium 3.4 L Chloride 96 L Carbon Dioxide 33 H Anion Gap 7 BUN 9 Creatinine 0.65 Est GFR ( Amer) 114.9 Est GFR (Non-Af Amer) 89.3 BUN/Creatinine Ratio 13.8 Glucose 115 H Calcium 8.7 Total Bilirubin 0.50 AST 44 H ALT 26 Alkaline Phosphatase 300 H Total Protein 6.3 L Albumin 3.2 Globulin 3.1 Albumin/Globulin Ratio 1.0 Vital Signs Temp Pulse Resp BP Pulse Ox 98.8 F 87 18 139/75 94 08/06/17 08:10 08/06/17 08:10 08/06/17 11:58 08/06/17 05:41 08/06/17 15:46 EXAM: LUNGS: Decreased BS HEART: Reg rhythm ABDOMEN: Soft, + BS EXTREMITIES: Wound on left leg clean ASSESSMENT/PLAN: 1. Left hip fracture: PT/OT. WBAT 2. DVT Prophylaxis: Coumadin 7.5 mg, check INR in am 3. Depression: Seroquel, Lexapro, Remeron 4. COPD: Supplemental O2, may need Spiriva 5. Analgesia: Percocet 6. Cognitive status: will consider having speech therapy see her but Olga may be distressed by this 7. Constipation: Lactulose PRN 8. Advanced Directives: Karan VILLAGOMEZ, DNR
[2017-08-06] MEDS: Mirtazapine TAB* 15 MG PO SCH (20:57)
[2017-08-07] MEDS: Levothyroxine TAB* 112 MCG TAB PO SCH (04:44)
[2017-08-07] MEDS: amLODIPine TAB* 5 MG PO SCH (09:00)
[2017-08-07] MEDS: QUEtiapine TAB* 100 MG PO SCH ×2 (09:01→20:17)
[2017-08-07] MEDS: CMC:Escitalopram (NF) 10 MG TAB PO SCH (09:01)
[2017-08-07] MEDS: oxyCODONE/Acetamin 5/325 MG* TAB PO PRN (09:01)
[2017-08-07] MEDS: Docusate CAP* 100 MG PO SCH ×2 (09:03→20:16)
--- NOTE | 2017-08-07 12:07 | PN ---
Progress Note - Progress Note Date of Service: 08/07/17 SOAP: Subjective: []Patient seen OOB in chair. Asked to view her surgical incision due to mild erythema Objective: []Incision is clean, dry and intact. Very mild erythema along incision without fluctuance, warmth, tenderness or spread of erythema. Assessment: []s/p L hemiarthroplasty Plan: []Wound does not appear infected at this time. Will monitor tomorrow as well. [facility] knows to call with any changes or concerns
--- NOTE | 2017-08-07 12:53 | PMRUTEAM ---
PMRU: Goals Current Status: Nursing: Current Status Skin Deviations [Left Hip] Incision Skin Deviation Description [ in place Left Hip] Physical Therapy: Current Status Bed Mobility Assistance Min Assist,Mod Assist Transfer Moblility Assistance Supervision Transfer/Bed Mobility Rolling Walker Recommended Devices Ambulation Assistance Supervision Ambulation Assistive Devices Rolling Walker Number of Feet Patient 110 Ambulated Stairs Assistance Supervision Stairs Recommended Devices Two Rails Number of Stairs 5 Occupational Therapy: Current Status Upper Body Dressing Supervision Lower Body Dressing Max Asst Lower Body Dressing Progress training for AE, assist to thread sanford Bathing Contact Guard Assist,Min Assist Toileting Contact Guard Assist,Min Assist Toilet Transfer Contact Guard Assist Shower Transfer Progress TBA Eating Independent,Supervision Rec Therapy: Current Status Summary of Assessment and RT assessment complete and pt. is aware of RT Clinical Impression services. Pt. is open to leisure visits and has activities in her room to engage in. Treatment Goals Pt. will engage in leisure activities while on the unit. Treatment Plan Provide RT services and encourage involvement. Social Work: Current Status Discharge Plan return home with home care svs and family support Potential for Family Training pt's is involved and supportive Anticipated Discharge Home Destination Discharge With home care svs and family support Nutrition: Current Status Monitoring pt eating rather well w/regular diet; averaging ~ 80% of meals since adm. Anticipate that appetite will remain adequate, [place] since pt had BM yesterday (following six days without). Wt is adequate (BMI 23) and skin is intact. Note serum K only 3.4 yesterday, so will follow weekly labs. Anticipate improvement in serum K w/adequate intake. Received Coumadin/vit K education while on SSSU. Tentative d/c 08/14. Goals: Physical Therapy: Initial Goals Bed Mobility Assistance Independent Transfer Mobility Assistance Independent Transfer/Bed Mobility Rolling Walker Recommended Devices Ambulation Independent Ambulation Recommended Devices Rolling Walker Ambulation Distance 150 Stairs Assistance Independent Stair Recommended Devices Two Rails Number of Stairs 5 Physical Therapy: Updated Goals Bed Mobility Assistance Independent Transfer Mobility Assistance Independent Transfer/Bed Mobility Rolling Walker Recommended Devices Ambulation Assistance Independent Ambulation Assistive Devices Rolling Walker Ambulation Distance (ft) 150 Stairs Assistance Independent Stairs Recommended Devices Two Rails Number of Stairs 5 Occupational Therapy: Initial Goals Goals to be Completed in (Days 7-10 ) Upper Body Bathing Routine Independent Lower Body Bathing Routine Modified Independent with Upper Body Dressing Routine Independent Lower Body Dressing Routine Modified Independent with Toilet Hygeine and Clothing Modified Independent with Management Routine Toilet Transfer Routine Modified Independent with Tub Transfer Routine Modified Independent with Functional Transfers for ADL Modified Independent with Grooming Routine Independent Feeding Routine Independent Nutrition: Goals Intervention Goals 1. adequate po intake to maintain stable weight and prevent loss of lean body mass 2. maintain serum K >3.4 with po intake and/or KCl supplementation, if needed 3. maintain bowel regularity without constipation or diarrhea Social Work: Goals Discharge Plan return home with home care svs and family support Potential for Family Training pt's is involved and supportive Anticipated Discharge Home Destination Discharge With home care svs and family support Care Plan: Care Plan Cardiovascular- Improve/Maintain Start: 08/04/17 00:08 Freq: QSHIFT Status: Active Target: Protocol: Activity Type Activity Date Activity User E-Sign Co-Sign Detail Recorded Client Recorded Date Recorded By Document 08/07/17 00:27 [id number] [id number] 08/07/17 00:27 [id number] 08/07/17 00:27 PMRU Outcome: Cardiovascular Vital Signs q Shift for 48hrs Then BID Yes Daily Weight Ordered No Current Cardiovascular Outcome/Goal Maintain/ Achieve Baseline HR, BP , Perfusion Free of Abnormal Cardiac Symptoms Progression Toward Outcome/Goal Progressing DVT Prophylaxis- Improve/Maintain Start: 08/04/17 00:08 Freq: QSHIFT Status: Active Target: Protocol: Activity Type Activity Date Activity User E-Sign Co-Sign Detail Recorded Client Recorded Date Recorded By Document 08/07/17 00:27 [id number] 08/07/17 00:27 [id number] 08/07/17 00:27 PMRU Outcome: DVT Prophylaxis Outcome/Goals Remains Free of DVT Complies with DVT Prophylaxis /Treatment TEDS Stockings on Every AM, Off at HS Progression Toward Outcome/Goals Progressing Education-Improve/Maintain Start: 08/04/17 00:08 Freq: QSHIFT Status: Active Target: Protocol: Activity Type Activity Date Activity User E-Sign Co-Sign Detail Recorded Client Recorded Date Recorded By Document 08/07/17 00:27 [id number] [email or web address] 08/07/17 00:27 [id number] 08/07/17 00:27 PMRU Outcome: Education Outcome/Goals Demonstrate/ Verbalize Understanding of Written Discharge Instructions Demonstrates Skills Encourage Questions Progression Toward Outcome/Goals Progressing /GI-Improve/Maintain Start: 08/04/17 00:08 Freq: QSHIFT Status: Active Target: Protocol: Activity Type Activity Date Activity User E-Sign Co-Sign Detail Recorded Client Recorded Date Recorded By Document 08/07/17 00:27 [id number] [email or web address] 08/07/17 00:27 [id number] 08/07/17 00:27 PMRU Outcome: Genitourinary/ Gastrointestinal Genitourinary- Outcome/Goals Maintain/ Achieve Urinary Continence Gastrointestinal-Outcome/Goals Maintain/ Achieve Bowel Regularity in Accordance with Pt's Baseline Prevent Constipation Progression Toward Outcome/Goals - Progressing Progression Toward Outcome/Goals - GI Progressing Mobility- Improve/Maintain Start: 08/03/17 16:23 Freq: QSHIFT Status: Active Target: Protocol: Activity Type Activity Date Activity User E-Sign Co-Sign Detail Recorded Client Recorded Date Recorded By Document 08/03/17 16:23 [id number] [email or web address] 08/03/17 16:23 [id number] 08/03/17 16:23 PMRU Outcome: Mobility Physical Therapy Evaluation and Yes Treatment Activity OOB with Assistance Yes WBAT Yes Device Yes Assistance Yes Patient to be seen 5x/wk for 60-120 min/ Therex day for: Mobility Training Gait Training Balance Outcome/Goals Maintain/ Achieve Baseline Mobility Status Improve Mobility Status Demonstrates Proper Use of Assistive Devices Free from Complications of Immobility Bed Mobility Yes: Independent Transfers Yes: Modified independent with RW Gait x ft Yes: Modified independent with RW 150' Up/Down Stairs Yes: Independent 5 steps 1 rail With HEP Yes Pain/Comfort- Improve/Maintain Start: 08/04/17 00:08 Freq: QSHIFT Status: Active Target: Protocol: Activity Type Activity Date Activity User E-Sign Co-Sign Detail Recorded Client Recorded Date Recorded By Document 08/07/17 00:27 [id number] [email or web address] 08/07/17 00:27 [id number] 08/07/17 00:27 PMRU Outcome: Pain/Comfort Outcome/Goals Demonstrates Knowledge and Use of Available Comfort Measures Achieves Acceptable Comfort/Pain Level as Determined by Patient/Condit Maintain Comfort Level Allowing Patient to Fully Participate in Rehab Progression Toward Outcome/Goals Progressing Outcome/Goals Met Comment 2 Percocets given Safety- Improve/Maintain Start: 08/04/17 00:08 Freq: QSHIFT Status: Active Target: Protocol: Activity Type Activity Date Activity User E-Sign Co-Sign Detail Recorded Client Recorded Date Recorded By Document 08/07/17 00:27 [id number] 08/07/17 00:27 [id number] 08/07/17 00:27 PMRU Outcome: Safety Outcome/Goals Remain Free of Injury or Harm Prevent Falls/ Injury Progression Toward Outcome/Goals Progressing Outcome/Goals Met Comment PA in place Skin- Improve/Maintain Start: 08/04/17 00:08 Freq: QSHIFT Status: Active Target: Protocol: Activity Type Activity Date Activity User E-Sign Co-Sign Detail Recorded Client Recorded Date Recorded By Document 08/07/17 00:27 [id number] 08/07/17 00:27 [id number] 08/07/17 00:27 PMRU Outcome: Skin Skin Risk Level Medium Skin Orders Dressing Change Air Mattress Outcome/Goals Maintain/ Improve Skin Intergrity Surgical Incisions Healing Progression Toward Outcome/Goals Progressing Medicine Note: Length of Stay: 1 week Anticipated Discharge Destination: Home Tentative Discharge Date: 08/14/17 Discharged to: Home
[2017-08-07] MEDS: Acetaminophen TAB* 325 MG PO PRN (13:52)
--- NOTE | 2017-08-07 16:40 | PN ---
Progress Note - Progress Note Date of Service: 08/07/17 Note: Olga visited. She is becoming a little more disinhibited, we think secondary to oxycodone. Will change pain medications. She was discussed in interdisciplinary team rounds. Will begin [place] clamping Current Medications Acetaminophen (Tylenol Tab*) 975 mg PO Q6H PRN PRN Reason: FEVER/PAIN Last Admin: 08/07/17 13:52 Dose: 975 mg Hydrocodone Bitart/Acetaminophen ([place] 5-325 Tab*) 1 tab PO Q4H PRN PRN Reason: PAIN - MODERATE TO SEVERE Amlodipine Besylate (Norvasc Tab*) 10 mg PO DAILY [facility] Last Admin: 08/07/17 09:00 Dose: 10 mg Atorvastatin Calcium (Lipitor*) 10 mg PO 1700 [facility] Last Admin: 08/06/17 16:57 Dose: 10 mg Bisacodyl (Dulcolax Supp*) 10 mg [place] DAILY PRN PRN Reason: CONSTIPATION Docusate Sodium (Colace Cap*) 100 mg PO BID [facility] Last Admin: 08/07/17 09:03 Dose: Not Given Escitalopram Oxalate (Lexapro (Nf)) 20 mg PO DAILY [facility] Last Admin: 08/07/17 09:01 Dose: 20 mg Lactulose (Lactulose*) 30 ml PO TID PRN PRN Reason: CONSTIPATION Last Admin: 08/05/17 19:46 Dose: 30 ml Levothyroxine Sodium (Synthroid Tab*) 112 mcg PO DAILY@0600 [facility] Last Admin: 08/07/17 04:44 Dose: 112 mcg Magnesium Hydroxide (Milk Of Magnesia Liq*) 30 ml PO Q6H PRN PRN Reason: CONSTIPATION Last Admin: 08/05/17 08:45 Dose: 30 ml Melatonin (Melatonin (Nf)) 6 mg PO BEDTIME PRN PRN Reason: SLEEP Mirtazapine (Remeron Tab*) 45 mg PO BEDTIME [facility] Last Admin: 08/06/17 20:57 Dose: 45 mg Pharmacy Profile Note (Coumadin Daily Reminder*) 1 note FOLLOW UP 1700 [facility] Last Admin: 08/06/17 17:01 Dose: 1 note Quetiapine Fumarate (Seroquel Tab*) 100 mg PO BID [facility] Last Admin: 08/07/17 09:01 Dose: 100 mg Senna (Senokot Tab*) 2 tab PO BEDTIME PRN PRN Reason: CONSTIPATION Last Admin: 08/05/17 16:55 Dose: 2 tab Warfarin Sodium (Coumadin Tab(*)) 7.5 mg PO DAILY@1700 [facility] PRN Reason: Protocol Vital Signs Temp Pulse Resp BP Pulse Ox 98.6 F 81 18 135/74 95 08/07/17 15:47 08/07/17 15:47 08/07/17 15:47 08/07/17 15:47 08/07/17 15:47 EXAM: LUNGS: Decreased BS HEART: Reg rhythm ABDOMEN: Soft, + BS EXTREMITIES: Wound on left leg clean ASSESSMENT/PLAN: 1. Left hip fracture: PT/OT. WBAT 2. DVT Prophylaxis: Coumadin 7.5 mg, check INR in am 3. Depression: Seroquel, Lexapro, Remeron 4. COPD: Supplemental O2, may need Spiriva 5. Analgesia: D/c Percocet. Will try Tylenol and one [place], if needed 6. Cognitive status: will consider having speech therapy see her but Olga may be distressed by this 7. Constipation: Lactulose PRN 8. Urinary retention: sanford. Begin clamping 9. Advanced Directives: Karan VILLAGOMEZ, DNR
[2017-08-07] MEDS: Atorvastatin* 10 MG TAB PO SCH (16:51)
[2017-08-07] MEDS ORDERED: Warfarin TAB(*) 7.5 MG PO SCH (17:00)
[2017-08-07] MEDS: Mirtazapine TAB* 15 MG PO SCH (20:16)
[2017-08-07] MEDS: HYDROcodone/ACETAMIN 5-325 MG* 1 TAB PO PRN (22:19)
[2017-08-08] MEDS: Levothyroxine TAB* 112 MCG TAB PO SCH (05:05)
[2017-08-08 08:12] LABS: Hematocrit 26 % (35-47); Hemoglobin 8.8 g/dl (12.0-16.0); Mean Corpuscular HGB Conc 34 g/dl (31-36); Mean Corpuscular Hemoglobin 29 pg (27-31); Mean Corpuscular Volume 86 fL (80-97); Mean Platelet Volume 7 um3 (7.4-10.4); Red Cell Distribution Width 14 % (10.5-15); White Blood Count 8.8 10^3/ul (3.5-10.8)
[2017-08-08 08:15] LABS: Add Diff/Slide Review? Slide Review Added; Comments Flag Yes
[2017-08-08 09:52] LABS: BUN/Creatinine Ratio 16.7 (8-20); Calcium 7.8 mg/dL (8.6-10.3); EGFR African American 112.9 (>60); EGFR Non-African American 87.8 (>60)
[2017-08-08 10:18] LABS: Potassium 3.6 mmol/L (3.5-5.0)
[2017-08-08 11:05] LABS: Urine Bacteria Absent (Absent); Urine Bilirubin Negative (Negative); Urine Glucose Negative (Negative); Urine Nitrite Negative (Negative)
[2017-08-08] MEDS: Acetaminophen TAB* 325 MG PO PRN (12:22)
[2017-08-08] MEDS: Docusate CAP* 100 MG PO SCH ×2 (12:23→20:09)
[2017-08-08] MEDS: CMC:Escitalopram (NF) 10 MG TAB PO SCH (12:23)
[2017-08-08] MEDS: amLODIPine TAB* 5 MG PO SCH (12:23)
[2017-08-08] MEDS: QUEtiapine TAB* 100 MG PO SCH ×2 (12:23→20:09)
--- NOTE | 2017-08-08 13:09 | PN ---
Progress Note - Progress Note Date of Service: 08/08/17 SOAP: Subjective: []Patient seen OOB in chair for evaluation of wound site. She has no complaints today. Objective: [] Incision of L hip CDI minimal erythema of wound unchanged from previous without spread whatsoever. No fluctuance or warmth. Yellow and purple bruising surrounding incision without fluctuance. Assessment: [] sp L hemiarthroplasty Plan: []No sign of infection, no need for ortho to continue monitoring wound at this time PMRU staff knows to call with any concern
[2017-08-08] MEDS: Atorvastatin* 10 MG TAB PO SCH (16:51)
[2017-08-08] MEDS: Warfarin TAB(*) 5 MG PO SCH (16:51)
--- NOTE | 2017-08-08 17:59 | PN ---
Progress Note - Progress Note Date of Service: 08/08/17 Note: Olga visited. Therapy notes read and reviewed. She did not feel well this morning but was better by the afternoon. She was confused overnight. Labs were drawn and a U/A was sent. U/A had some blood but no bacteria. Current Medications Acetaminophen (Tylenol Tab*) 975 mg PO Q6H PRN PRN Reason: FEVER/PAIN Last Admin: 08/08/17 12:22 Dose: 975 mg Hydrocodone Bitart/Acetaminophen ([place] 5-325 Tab*) 1 tab PO Q4H PRN PRN Reason: PAIN - MODERATE TO SEVERE Last Admin: 08/07/17 22:19 Dose: 1 tab Amlodipine Besylate (Norvasc Tab*) 10 mg PO DAILY [facility] Last Admin: 08/08/17 12:23 Dose: 10 mg Atorvastatin Calcium (Lipitor*) 10 mg PO 1700 [facility] Last Admin: 08/08/17 16:51 Dose: 10 mg Bisacodyl (Dulcolax Supp*) 10 mg [place] DAILY PRN PRN Reason: CONSTIPATION Docusate Sodium (Colace Cap*) 100 mg PO BID [facility] Last Admin: 08/08/17 12:23 Dose: 100 mg Escitalopram Oxalate (Lexapro (Nf)) 20 mg PO DAILY [facility] Last Admin: 08/08/17 12:23 Dose: 20 mg Lactulose (Lactulose*) 30 ml PO TID PRN PRN Reason: CONSTIPATION Last Admin: 08/05/17 19:46 Dose: 30 ml Levothyroxine Sodium (Synthroid Tab*) 112 mcg PO DAILY@0600 [facility] Last Admin: 08/08/17 05:05 Dose: 112 mcg Magnesium Hydroxide (Milk Of Magnesia Liq*) 30 ml PO Q6H PRN PRN Reason: CONSTIPATION Last Admin: 08/05/17 08:45 Dose: 30 ml Melatonin (Melatonin (Nf)) 6 mg PO BEDTIME PRN PRN Reason: SLEEP Mirtazapine (Remeron Tab*) 45 mg PO BEDTIME [facility] Last Admin: 08/07/17 20:16 Dose: 45 mg Pharmacy Profile Note (Coumadin Daily Reminder*) 1 note FOLLOW UP 1700 [facility] Last Admin: 08/08/17 17:04 Dose: 1 note Quetiapine Fumarate (Seroquel Tab*) 100 mg PO BID [facility] Last Admin: 08/08/17 12:23 Dose: 100 mg Senna (Senokot Tab*) 2 tab PO BEDTIME PRN PRN Reason: CONSTIPATION Last Admin: 08/05/17 16:55 Dose: 2 tab Warfarin Sodium (Coumadin Tab(*)) 10 mg PO DAILY@1700 [facility] PRN Reason: Protocol Last Admin: 08/08/17 16:51 Dose: 10 mg Laboratory Results - last 24 hr 08/08/17 08/08/17 08/08/17 06:32 06:32 06:35 WBC 8.8 RBC 3.00 L Hgb 8.8 L Hct 26 L MCV 86 MCH 29 MCHC 34 RDW 14 Plt Count 527 H D MPV 7 L Neut % (Auto) 71.3 Lymph % (Auto) 12.6 L [place] % (Auto) 12.5 H Eos % (Auto) 2.9 Baso % (Auto) 0.7 Absolute Neuts (auto) 6.3 Absolute Lymphs (auto) 1.1 Absolute Monos (auto) 1.1 H Absolute Eos (auto) 0.3 Absolute Basos (auto) 0.1 Absolute Nucleated RBC 0.01 Nucleated RBC % 0.1 INR (Anticoag Therapy) 1.32 H Sodium 139 Potassium 3.6 Chloride 101 Carbon Dioxide 29 Anion Gap 9 BUN 11 Creatinine 0.66 Est GFR ( Amer) 112.9 Est GFR (Non-Af Amer) 87.8 BUN/Creatinine Ratio 16.7 Glucose 109 H Calcium 7.8 L Urine Color Urine Appearance Urine pH Ur Specific [place] Urine Protein Urine Ketones Urine Blood Urine Nitrate Urine Bilirubin Urine Urobilinogen Ur Leukocyte Esterase Urine WBC (Auto) Urine RBC (Auto) Urine Bacteria Urine Glucose 08/08/17 10:44 WBC RBC Hgb Hct MCV MCH MCHC RDW Plt Count MPV Neut % (Auto) Lymph % (Auto) [place] % (Auto) Eos % (Auto) Baso % (Auto) Absolute Neuts (auto) Absolute Lymphs (auto) Absolute Monos (auto) Absolute Eos (auto) Absolute Basos (auto) Absolute Nucleated RBC Nucleated RBC % INR (Anticoag Therapy) Sodium Potassium Chloride Carbon Dioxide Anion Gap BUN Creatinine Est GFR ( Amer) Est GFR (Non-Af Amer) BUN/Creatinine Ratio Glucose Calcium Urine Color Yellow Urine Appearance Cloudy Urine pH 8.0 Ur Specific [place] 1.011 Urine Protein 1+(30 mg/dl) H Urine Ketones Trace H Urine Blood 1+ H Urine Nitrate Negative Urine Bilirubin Negative Urine Urobilinogen Negative Ur Leukocyte Esterase 2+ H Urine WBC (Auto) 3+(>20/hpf) H Urine RBC (Auto) 3+(>10/hpf) H Urine Bacteria Absent Urine Glucose Negative Vital Signs Temp Pulse Resp BP Pulse Ox 98.0 F 74 16 132/68 98 08/08/17 16:00 08/08/17 16:00 08/08/17 16:00 08/08/17 16:00 08/08/17 16:00 EXAM: LUNGS: Decreased BS HEART: Reg rhythm ABDOMEN: Soft, + BS EXTREMITIES: Wound on left leg clean ASSESSMENT/PLAN: 1. Left hip fracture: PT/OT. WBAT 2. DVT Prophylaxis: Coumadin 10 mg, check INR in am 3. Depression: Seroquel, Lexapro, Remeron 4. COPD: Supplemental O2, may need Spiriva 5. Analgesia: D/c Percocet. Will try Tylenol and one [place], if needed, but keeping opioids to a minimum 6. Cognitive status: will consider having speech therapy see her but Olga may be significantly distressed by this 7. Constipation: Lactulose PRN 8. Urinary retention: sanford. Begin clamping 9. Advanced Directives: CAMPBELL GallowayR
[2017-08-08] MEDS: Mirtazapine TAB* 15 MG PO SCH (20:09)
[2017-08-08] MEDS: HYDROcodone/ACETAMIN 5-325 MG* 1 TAB PO PRN (21:36)
[2017-08-09] MEDS: HYDROcodone/ACETAMIN 5-325 MG* 1 TAB PO PRN ×2 (01:45→18:58)
[2017-08-09] MEDS: Levothyroxine TAB* 112 MCG TAB PO SCH (05:23)
[2017-08-09] MEDS: amLODIPine TAB* 5 MG PO SCH (09:15)
[2017-08-09] MEDS: CMC:Escitalopram (NF) 10 MG TAB PO SCH (09:15)
[2017-08-09] MEDS: Docusate CAP* 100 MG PO SCH ×2 (09:15→19:32)
[2017-08-09] MEDS: QUEtiapine TAB* 100 MG PO SCH ×2 (09:15→20:05)
[2017-08-09] MEDS ORDERED: LORazepam TAB(*) 0.5 MG PO ONE (12:37)
--- NOTE | 2017-08-09 12:41 | PN ---
Progress Note - Progress Note Date of Service: 08/09/17 Note: Olga visited. She was feeling anxious about the Thanksgiving dinner. I ordered an Ativan and we will see how it affects her. If it doesn't confuse her , will allow more frequently. Current Medications Acetaminophen (Tylenol Tab*) 975 mg PO Q6H PRN PRN Reason: FEVER/PAIN Last Admin: 08/08/17 12:22 Dose: 975 mg Hydrocodone Bitart/Acetaminophen ([place] 5-325 Tab*) 1 tab PO Q4H PRN PRN Reason: PAIN - MODERATE TO SEVERE Last Admin: 08/09/17 01:45 Dose: 1 tab Amlodipine Besylate (Norvasc Tab*) 10 mg PO DAILY [facility] Last Admin: 08/09/17 09:15 Dose: 10 mg Atorvastatin Calcium (Lipitor*) 10 mg PO 1700 [facility] Last Admin: 08/08/17 16:51 Dose: 10 mg Bisacodyl (Dulcolax Supp*) 10 mg [place] DAILY PRN PRN Reason: CONSTIPATION Docusate Sodium (Colace Cap*) 100 mg PO BID [facility] Last Admin: 08/09/17 09:15 Dose: 100 mg Escitalopram Oxalate (Lexapro (Nf)) 20 mg PO DAILY [facility] Last Admin: 08/09/17 09:15 Dose: 20 mg Lactulose (Lactulose*) 30 ml PO TID PRN PRN Reason: CONSTIPATION Last Admin: 08/05/17 19:46 Dose: 30 ml Levothyroxine Sodium (Synthroid Tab*) 112 mcg PO DAILY@0600 [facility] Last Admin: 08/09/17 05:23 Dose: 112 mcg Lorazepam (Ativan Tab(*)) 0.5 mg PO ONCE ONE Stop: 08/09/17 12:38 Magnesium Hydroxide (Milk Of Magnesia Liq*) 30 ml PO Q6H PRN PRN Reason: CONSTIPATION Last Admin: 08/05/17 08:45 Dose: 30 ml Melatonin (Melatonin (Nf)) 6 mg PO BEDTIME PRN PRN Reason: SLEEP Mirtazapine (Remeron Tab*) 45 mg PO BEDTIME [facility] Last Admin: 08/08/17 20:09 Dose: 45 mg Pharmacy Profile Note (Coumadin Daily Reminder*) 1 note FOLLOW UP 1700 [facility] Last Admin: 08/08/17 17:04 Dose: 1 note Quetiapine Fumarate (Seroquel Tab*) 100 mg PO BID [facility] Last Admin: 08/09/17 09:15 Dose: 100 mg Senna (Senokot Tab*) 2 tab PO BEDTIME PRN PRN Reason: CONSTIPATION Last Admin: 08/05/17 16:55 Dose: 2 tab Warfarin Sodium (Coumadin Tab(*)) 10 mg PO DAILY@1700 [facility] PRN Reason: Protocol Last Admin: 08/08/17 16:51 Dose: 10 mg Laboratory Results - last 24 hr 08/09/17 07:59 INR (Anticoag Therapy) 1.48 H Vital Signs Temp Pulse Resp BP Pulse Ox 98.3 F 89 16 156/85 98 08/09/17 05:23 08/09/17 05:23 08/09/17 05:23 08/09/17 05:23 08/09/17 05:23 EXAM: LUNGS: Decreased BS HEART: Reg rhythm ABDOMEN: Soft, + BS EXTREMITIES: Wound on left leg clean ASSESSMENT/PLAN: 1. Left hip fracture: PT/OT. WBAT 2. DVT Prophylaxis: Coumadin 10 mg, check INR in am 3. Depression: Seroquel, Lexapro, Remeron 4. COPD: Supplemental O2, may need Spiriva 5. Analgesia: D/c Percocet. Will try Tylenol and one [place], if needed, but keeping opioids to a minimum 6. Cognitive status: will consider having speech therapy see her but Olga may be significantly distressed by this 7. Constipation: Lactulose PRN 8. Urinary retention: sanford. Begin clamping 9. Advanced Directives: Has DAHLIA, DNR 10. Anxiety: Ativan
[2017-08-09] MEDS ORDERED: LORazepam TAB(*) 0.5 MG ONE (12:43)
[2017-08-09] MEDS: Warfarin TAB(*) 5 MG PO SCH (17:11)
[2017-08-09] MEDS: Atorvastatin* 10 MG TAB PO SCH (17:11)
[2017-08-09] MEDS: Mirtazapine TAB* 15 MG PO SCH (20:05)
[2017-08-10] MEDS: Levothyroxine TAB* 112 MCG TAB PO SCH (06:04)
[2017-08-10] MEDS: CMC:Escitalopram (NF) 10 MG TAB PO SCH (08:21)
[2017-08-10] MEDS: QUEtiapine TAB* 100 MG PO SCH ×2 (08:21→20:47)
[2017-08-10] MEDS: Docusate CAP* 100 MG PO SCH ×2 (08:21→20:47)
[2017-08-10] MEDS: amLODIPine TAB* 5 MG PO SCH (08:21)
[2017-08-10] MEDS: Acetaminophen TAB* 325 MG PO PRN ×2 (10:03→22:20)
[2017-08-10] MEDS: LORazepam TAB(*) 0.5 MG PO PRN (17:24)
[2017-08-10] MEDS: Atorvastatin* 10 MG TAB PO SCH (17:24)
[2017-08-10] MEDS: Warfarin TAB(*) 5 MG PO SCH (17:24)
[2017-08-10] MEDS: Levofloxacin TAB* 250 MG PO SCH (17:24)
--- NOTE | 2017-08-10 17:48 | PN ---
Progress Note - Progress Note Date of Service: 08/10/17 Note: Olga was visited. She describes anxiety over her newfound lack of mobility, and her loss of control. Therapy notes read and reviewed. Otherwise stable. Her urine grew out >100K Morganella. Will start Levaquin Current Medications Acetaminophen (Tylenol Tab*) 975 mg PO Q6H PRN PRN Reason: FEVER/PAIN Last Admin: 08/10/17 10:03 Dose: 975 mg Hydrocodone Bitart/Acetaminophen ([place] 5-325 Tab*) 1 tab PO Q4H PRN PRN Reason: PAIN - MODERATE TO SEVERE Last Admin: 08/09/17 18:58 Dose: 1 tab Amlodipine Besylate (Norvasc Tab*) 10 mg PO DAILY [facility] Last Admin: 08/10/17 08:21 Dose: 10 mg Atorvastatin Calcium (Lipitor*) 10 mg PO 1700 [facility] Last Admin: 08/10/17 17:24 Dose: 10 mg Bisacodyl (Dulcolax Supp*) [address] DAILY PRN PRN Reason: CONSTIPATION Docusate Sodium (Colace Cap*) 100 mg PO BID [facility] Last Admin: 08/10/17 08:21 Dose: Not Given Escitalopram Oxalate (Lexapro (Nf)) 20 mg PO DAILY [facility] Last Admin: 08/10/17 08:21 Dose: 20 mg Lactulose (Lactulose*) 30 ml PO TID PRN PRN Reason: CONSTIPATION Last Admin: 08/05/17 19:46 Dose: 30 ml Levofloxacin (Levaquin Tab*) 250 mg PO Q24H [facility] Last Admin: 08/10/17 17:24 Dose: 250 mg Levothyroxine Sodium (Synthroid Tab*) 112 mcg PO DAILY@0600 [facility] Last Admin: 08/10/17 06:04 Dose: 112 mcg Lorazepam (Ativan Tab(*)) 0.5 mg PO Q8H PRN PRN Reason: ANXIETY Last Admin: 08/10/17 17:24 Dose: 0.5 mg Magnesium Hydroxide (Milk Of Magnesia Liq*) 30 ml PO Q6H PRN PRN Reason: CONSTIPATION Last Admin: 08/05/17 08:45 Dose: 30 ml Melatonin (Melatonin (Nf)) 6 mg PO BEDTIME PRN PRN Reason: SLEEP Mirtazapine (Remeron Tab*) 45 mg PO BEDTIME [facility] Last Admin: 08/09/17 20:05 Dose: 45 mg Pharmacy Profile Note (Coumadin Daily Reminder*) 1 note FOLLOW UP 1699 [facility] Last Admin: 08/10/17 17:25 Dose: Not Given Quetiapine Fumarate (Seroquel Tab*) 100 mg PO BID [facility] Last Admin: 08/10/17 08:21 Dose: 100 mg Senna (Senokot Tab*) 2 tab PO BEDTIME PRN PRN Reason: CONSTIPATION Last Admin: 08/05/17 16:55 Dose: 2 tab Warfarin Sodium (Coumadin Tab(*)) 10 mg PO DAILY@1700 [facility] PRN Reason: Protocol Last Admin: 08/10/17 17:24 Dose: 10 mg Laboratory Results - last 24 hr 08/10/17 06:44 INR (Anticoag Therapy) 1.56 H Microbiology 08/08/17 10:44 Urine Urine Culture - Final Morganella Morganii Normal Lexie Vital Signs Temp Pulse Resp BP Pulse Ox 98.6 F 78 22 138/65 97 08/10/17 16:15 08/10/17 16:15 08/10/17 17:24 08/10/17 16:15 08/10/17 16:37 EXAM: LUNGS: Decreased BS HEART: Reg rhythm ABDOMEN: Soft, + BS EXTREMITIES: Wound on left leg clean ASSESSMENT/PLAN: 1. Left hip fracture: PT/OT. WBAT 2. DVT Prophylaxis: Coumadin 10 mg, check INR Sunday 3. Depression: Seroquel, Lexapro, Remeron 4. COPD: Supplemental O2, may need Spiriva 5. Analgesia: D/c Percocet. Will try Tylenol and one [place], if needed, but keeping opioids to a minimum 6. Cognitive status: will consider having speech therapy see her but Olga may be significantly distressed by this 7. Constipation: Lactulose PRN 8. Urinary retention: sanford d/c'd. She has been voiding 9. Urinary Tract Infection: Levaquin day #1 10. Advanced Directives: Karan VILLAGOMEZ, DNR 11. Anxiety: Ativan
[2017-08-10] MEDS: Mirtazapine TAB* 15 MG PO SCH (20:47)
[2017-08-11] MEDS: Levothyroxine TAB* 112 MCG TAB PO SCH (05:23)
[2017-08-11] MEDS: Docusate CAP* 100 MG PO SCH ×2 (09:32→20:16)
[2017-08-11] MEDS: CMC:Escitalopram (NF) 10 MG TAB PO SCH (09:32)
[2017-08-11] MEDS: QUEtiapine TAB* 100 MG PO SCH ×2 (09:32→20:16)
[2017-08-11] MEDS: HYDROcodone/ACETAMIN 5-325 MG* 1 TAB PO PRN ×2 (09:32→21:47)
[2017-08-11] MEDS: amLODIPine TAB* 5 MG PO SCH (09:33)
--- NOTE | 2017-08-11 13:42 | PN ---
Progress Note - Progress Note Date of Service: 08/11/17 Note: Olga visited. Therapy notes read and reviewed. She is otherwise doing well. Anxiety a little better. She is frustrated over her new situation Current Medications Acetaminophen (Tylenol Tab*) 975 mg PO Q6H PRN PRN Reason: FEVER/PAIN Last Admin: 08/10/17 22:20 Dose: 975 mg Hydrocodone Bitart/Acetaminophen ([place] 5-325 Tab*) 1 tab PO Q4H PRN PRN Reason: PAIN - MODERATE TO SEVERE Last Admin: 08/11/17 09:32 Dose: 1 tab Amlodipine Besylate (Norvasc Tab*) 10 mg PO DAILY [facility] Last Admin: 08/11/17 09:33 Dose: 10 mg Atorvastatin Calcium (Lipitor*) 10 mg PO 1700 [facility] Last Admin: 08/10/17 17:24 Dose: 10 mg Bisacodyl (Dulcolax Supp*) 10 mg [place] DAILY PRN PRN Reason: CONSTIPATION Docusate Sodium (Colace Cap*) 100 mg PO BID [facility] Last Admin: 08/11/17 09:32 Dose: 100 mg Escitalopram Oxalate (Lexapro (Nf)) 20 mg PO DAILY [facility] Last Admin: 08/11/17 09:32 Dose: 20 mg Lactulose (Lactulose*) 30 ml PO TID PRN PRN Reason: CONSTIPATION Last Admin: 08/05/17 19:46 Dose: 30 ml Levofloxacin (Levaquin Tab*) 250 mg PO Q24H [facility] Last Admin: 08/10/17 17:24 Dose: 250 mg Levothyroxine Sodium (Synthroid Tab*) 112 mcg PO DAILY@0600 [facility] Last Admin: 08/11/17 05:23 Dose: 112 mcg Lorazepam (Ativan Tab(*)) 0.5 mg PO Q8H PRN PRN Reason: ANXIETY Last Admin: 08/10/17 17:24 Dose: 0.5 mg Magnesium Hydroxide (Milk Of Magnesia Liq*) 30 ml PO Q6H PRN PRN Reason: CONSTIPATION Last Admin: 08/05/17 08:45 Dose: 30 ml Melatonin (Melatonin (Nf)) 6 mg PO BEDTIME PRN PRN Reason: SLEEP Mirtazapine (Remeron Tab*) 45 mg PO BEDTIME [facility] Last Admin: 08/10/17 20:47 Dose: 45 mg Pharmacy Profile Note (Coumadin Daily Reminder*) 1 note FOLLOW UP 1700 [facility] Last Admin: 08/10/17 17:25 Dose: Not Given Quetiapine Fumarate (Seroquel Tab*) 100 mg PO BID [facility] Last Admin: 08/11/17 09:32 Dose: 100 mg Senna (Senokot Tab*) 2 tab PO BEDTIME PRN PRN Reason: CONSTIPATION Last Admin: 08/05/17 16:55 Dose: 2 tab Warfarin Sodium (Coumadin Tab(*)) 10 mg PO DAILY@1700 [facility] PRN Reason: Protocol Last Admin: 08/10/17 17:24 Dose: 10 mg Vital Signs Temp Pulse Resp BP Pulse Ox 98.0 F 78 18 152/83 96 08/11/17 05:24 08/11/17 05:24 08/11/17 12:57 08/11/17 05:24 08/11/17 08:00 EXAM: LUNGS: Decreased BS HEART: Reg rhythm ABDOMEN: Soft, + BS EXTREMITIES: Wound on left leg clean ASSESSMENT/PLAN: 1. Left hip fracture: PT/OT. WBAT 2. DVT Prophylaxis: Coumadin 10 mg, check INR tomorrow 3. Depression: Seroquel, Lexapro, Remeron 4. COPD: Supplemental O2 as needed but have been tapering 5. Analgesia: D/c Percocet. Will try Tylenol and one [place], if needed, but keeping opioids to a minimum 6. Cognitive status: will consider having speech therapy see her but Olga may be significantly distressed by this 7. Constipation: Lactulose PRN 8. Urinary retention: sanford d/c'd. She has been voiding 9. Urinary Tract Infection: Levaquin day #2 10. Advanced Directives: Has DAHLIA, DNR 11. Anxiety: Ativan
[2017-08-11] MEDS: Atorvastatin* 10 MG TAB PO SCH (16:22)
[2017-08-11] MEDS: Warfarin TAB(*) 5 MG PO SCH (16:22)
[2017-08-11] MEDS: Levofloxacin TAB* 250 MG PO SCH (16:22)
[2017-08-11] MEDS: LORazepam TAB(*) 0.5 MG PO PRN (17:10)
[2017-08-11] MEDS: Mirtazapine TAB* 15 MG PO SCH (20:16)
[2017-08-12] MEDS: Levothyroxine TAB* 112 MCG TAB PO SCH (04:59)
[2017-08-12] MEDS: CMC:Escitalopram (NF) 10 MG TAB PO SCH (09:00)
[2017-08-12] MEDS: amLODIPine TAB* 5 MG PO SCH (09:01)
[2017-08-12] MEDS: QUEtiapine TAB* 100 MG PO SCH (09:01)
[2017-08-12] MEDS: Docusate CAP* 100 MG PO SCH (09:26)
[2017-08-12] MEDS ORDERED: Nitroglycerin TAB 0.4 MG* 0.4 MG TAB SL PRN (13:49)
[2017-08-12 15:23] VITALS: BP 161/76
--- NOTE | 2017-08-12 15:35 | PN ---
Progress Note - Progress Note Date of Service: 08/12/17 Note: Olga visited. At 1325, she developed chest pain. She reported to nursing that she has had episodes like this for years. EKG ordered. EKG showed no acute changes. Troponin ordered, pending at this time. Dr. Anand felt that her story was compelling enough to transfer her to telemetry and ordere a stress test. Chest pain has since resolved Current Medications Acetaminophen (Tylenol Tab*) 975 mg PO Q6H PRN PRN Reason: FEVER/PAIN Last Admin: 08/10/17 22:20 Dose: 975 mg Hydrocodone Bitart/Acetaminophen ([place] 5-325 Tab*) 1 tab PO Q4H PRN PRN Reason: PAIN - MODERATE TO SEVERE Last Admin: 08/11/17 21:47 Dose: 1 tab Amlodipine Besylate (Norvasc Tab*) 10 mg PO DAILY [facility] Last Admin: 08/12/17 09:01 Dose: 10 mg Atorvastatin Calcium (Lipitor*) 10 mg PO 1700 [facility] Last Admin: 08/11/17 16:22 Dose: 10 mg Bisacodyl (Dulcolax Supp*) 10 mg [place] DAILY PRN PRN Reason: CONSTIPATION Docusate Sodium (Colace Cap*) 100 mg PO BID [facility] Last Admin: 08/12/17 09:26 Dose: Not Given Escitalopram Oxalate (Lexapro (Nf)) 20 mg PO DAILY [facility] Last Admin: 08/12/17 09:00 Dose: 20 mg Lactulose (Lactulose*) 30 ml PO TID PRN PRN Reason: CONSTIPATION Last Admin: 08/05/17 19:46 Dose: 30 ml Levofloxacin (Levaquin Tab*) 250 mg PO Q24H [facility] Last Admin: 08/11/17 16:22 Dose: 250 mg Levothyroxine Sodium (Synthroid Tab*) 112 mcg PO DAILY@0600 [facility] Last Admin: 08/12/17 04:59 Dose: 112 mcg Lorazepam (Ativan Tab(*)) 0.5 mg PO Q8H PRN PRN Reason: ANXIETY Last Admin: 08/11/17 17:10 Dose: 0.5 mg Magnesium Hydroxide (Milk Of Magnesia Liq*) 30 ml PO Q6H PRN PRN Reason: CONSTIPATION Last Admin: 08/05/17 08:45 Dose: 30 ml Melatonin (Melatonin (Nf)) 6 mg PO BEDTIME PRN PRN Reason: SLEEP Last Admin: 08/11/17 20:20 Dose: 6 mg Mirtazapine (Remeron Tab*) 45 mg PO BEDTIME [facility] Last Admin: 08/11/17 20:16 Dose: 45 mg Nitroglycerin (Nitroglycerin Tab 0.4 Mg*) 0.4 mg SL Q5M PRN PRN Reason: ANGINA Pharmacy Profile Note (Coumadin Daily Reminder*) 1 note FOLLOW UP 1700 [facility] Last Admin: 08/11/17 16:23 Dose: 1 note Quetiapine Fumarate (Seroquel Tab*) 100 mg PO BID [facility] Last Admin: 08/12/17 09:01 Dose: 100 mg Senna (Senokot Tab*) 2 tab PO BEDTIME PRN PRN Reason: CONSTIPATION Last Admin: 08/05/17 16:55 Dose: 2 tab Warfarin Sodium (Coumadin Tab(*)) 10 mg PO DAILY@1700 [facility] PRN Reason: Protocol Last Admin: 08/11/17 16:22 Dose: 10 mg Laboratory Results - last 24 hr 08/12/17 06:31 INR (Anticoag Therapy) 1.60 H Vital Signs Temp Pulse Resp BP Pulse Ox 98.3 F 87 18 161/76 96 08/12/17 15:23 08/12/17 15:23 08/12/17 15:23 08/12/17 15:23 08/12/17 15:23 EXAM: LUNGS: Decreased BS HEART: Reg rhythm ABDOMEN: Soft, + BS EXTREMITIES: Wound on left leg clean ASSESSMENT/PLAN: 1. Chest Pain: Will be discharged to acute hospitalization under Dr. Anand. 2. Left hip fracture: PT/OT can resume when cleared by Dr. Anand 3. DVT Prophylaxis: Coumadin 10 mg. 4. Depression/Anxiety: Seroquel/Remeron/Ativan 5. Urinary Tract Infection: Levaquin, day #3
== END 2017-08-12 15:43 | disposition short-term general hospital (02) | DRG 560 ==
LOC: PMRU 11:05
PROVIDERS: ADMIT Physical Medicine & Rehabilitation; ATTEND Physical Medicine & Rehabilitation
PROC: F07Z5ZZ Bed Mobility Treatment (ICD-10-PCS; principal; 2017-08-03)
PROC: F07Z9ZZ Gait Training/Functional Ambulation Treatment (ICD-10-PCS; 2017-08-03)
PROC: F07Z8ZZ Transfer Training Treatment (ICD-10-PCS; 2017-08-03)
PROC: F08Z0ZZ Bathing/Showering Techniques Treatment (ICD-10-PCS; 2017-08-03)
PROC: F08Z1ZZ Dressing Techniques Treatment (ICD-10-PCS; 2017-08-03)
PROC: F08Z3ZZ Feeding/Eating Treatment (ICD-10-PCS; 2017-08-03)
DX: Z47.1 Aftercare following joint replacement surgery (principal); N39.0 Urinary tract infection, site not specified; J44.9 Chronic obstructive pulmonary disease, unspecified; E03.9 Hypothyroidism, unspecified; Z96.642 Presence of left artificial hip joint; S72.002D Fracture of unspecified part of neck of left femur, subsequent encounter for closed fracture with routine healing; W17.89XD Other fall from one level to another, subsequent encounter; I10 Essential (primary) hypertension; E78.5 Hyperlipidemia, unspecified; R07.9 Chest pain, unspecified; F32.9 Major depressive disorder, single episode, unspecified; M81.0 Age-related osteoporosis without current pathological fracture; E78.00 Pure hypercholesterolemia, unspecified; Z79.01 Long term (current) use of anticoagulants; Z79.899 Other long term (current) drug therapy; Z88.2 Allergy status to sulfonamides; Z87.891 Personal history of nicotine dependence; R20.0 Anesthesia of skin; K59.00 Constipation, unspecified; Z66 Do not resuscitate; R33.9 Retention of urine, unspecified
CPT/HCPCS: 36415; 80048; 80053; 81003; 81015; 84484; 85025; 85610; 87077; 87086; 87186; 90732; 93005; A9270-GY; J1644

== ENCOUNTER 2017-08-12 07:41 | Inpatient (IN) | payer MEDICARE, BC ==
[2017-08-12] MEDS ORDERED: Acetaminophen TAB* 325 MG PO PRN (15:49)
[2017-08-12] MEDS ORDERED: Bisacodyl SUPP* 10 MG SUPP PR PRN (15:50)
[2017-08-12] MEDS ORDERED: Magnesium Hydroxide LIQ* 30 ML UDC PO PRN (15:53)
[2017-08-12] MEDS ORDERED: CMC:Melatonin (NF) 3 MG TAB PO PRN (15:54)
[2017-08-12] MEDS ORDERED: Nitroglycerin TAB 0.4 MG* 0.4 MG TAB SL PRN (15:55)
[2017-08-12] MEDS ORDERED: Warfarin TAB(*) 10 MG PO SCH (17:00)
[2017-08-12] MEDS: Levofloxacin TAB* 250 MG PO SCH (17:44)
[2017-08-12] MEDS: Atorvastatin* 10 MG TAB PO SCH (17:45)
[2017-08-12] MEDS: LORazepam TAB(*) 0.5 MG PO PRN (17:52)
[2017-08-12 18:05] LABS: BUN/Creatinine Ratio 18.4 (8-20); Calcium 8.3 mg/dL (8.6-10.3); EGFR African American 67.6 (>60); EGFR Non-African American 52.5 (>60)
[2017-08-12 18:06] LABS: Troponin I 0.01 ng/mL (<0.04)
[2017-08-12] MEDS ORDERED: Iodixanol* (CONTRAST) 320 MG/ML 100 ML SDV IV ONE (18:09)
--- NOTE | 2017-08-12 20:02 | RAD ---
INDICATION: Chest pain evaluate for pulmonary embolism. COMPARISON: Comparison is made with a prior chest x-ray study from July 31, 2017. TECHNIQUE: A CT angiogram of the chest was performed with intravenous following intravenous injection of 67 ml of is a vague 3 to nonionic contrast. Contiguous axial sections were obtained from the lung apices through the lung bases. Images were reconstructed in the coronal and sagittal planes. FINDINGS: There is relatively homogeneous opacification of the pulmonary arteries. There is slight motion artifact in the basilar segmental arteries. There are intraluminal filling defects in a right basilar subsegmental artery and in a right middle lobe segmental artery branch most consistent with pulmonary emboli. The heart is within normal limits in size. There are coronary artery calcifications present. No pericardial effusion is present. The thoracic aorta is normal in caliber and demonstrates homogeneous contrast opacification. No significant enlarged mediastinal or hilar lymph nodes are seen. There is mild dependent bilateral lower lobe subsegmental atelectasis. No pleural effusion is seen. No significant focal osseous abnormality is seen. The results of this exam were discussed with Dr. Fleming. IMPRESSION: THERE ARE PULMONARY EMBOLI IN THE RIGHT MIDDLE AND LOWER LOBE SEGMENTAL AND SUBSEGMENTAL ARTERY BRANCHES NOTED.
[2017-08-12] MEDS: Docusate CAP* 100 MG PO SCH (20:06)
--- NOTE | 2017-08-12 20:06 | PN ---
Progress Note - Progress Note Date of Service: 08/12/17 Note: Radiology called. CTA chest positive for PE. SQ heparin changed to heparin GTT.
[2017-08-12] MEDS ORDERED: Heparin DRIP 25,000 UNITS(*) 25,000 UNITS/500 ML BAG IVPB SCH (20:15)
[2017-08-12] MEDS: Mirtazapine TAB* 15 MG PO SCH (20:52)
[2017-08-12 20:54] LABS: Hematocrit 27 % (35-47); Mean Corpuscular HGB Conc 34 g/dl (31-36); Mean Corpuscular Hemoglobin 29 pg (27-31); Mean Corpuscular Volume 87 fL (80-97); Mean Platelet Volume 6 um3 (7.4-10.4); Red Blood Count 3.05 10^6/ul (4.0-5.4); Red Cell Distribution Width 14 % (10.5-15); White Blood Count 14.1 10^3/ul (3.5-10.8)
[2017-08-12] MEDS ORDERED: Heparin VIAL(*) 5000 UNITS/ML VIAL (FIVE THOUSAND) IV SCH (21:00)
[2017-08-12 21:05] LABS: Add Diff/Slide Review? Slide Review Added; Comments Flag Yes
--- NOTE | 2017-08-12 21:42 | HP ---
CC: Germán Miguel NP; Dr. Kobi Swenson, [facility] * HISTORY AND PHYSICAL: DATE OF ADMISSION: 08/12/17 TIME OF EVALUATION: 2:30 p.m. PRIMARY CARE PROVIDER: Germán Miguel NP CHIEF COMPLAINT: Chest pain. HISTORY OF PRESENT ILLNESS: Ms. Cash is a 72-year-old lady with a past medical history of depression; hypertension; thyroid cancer, status post thyroidectomy; osteopenia; hyperlipidemia that [place] [facility] complaining of left hip pain. She was found to have left hip displaced femoral neck fracture and she underwent a left hip uncemented bipolar hemiarthroplasty on 08/01/17. The patient was discharged to [facility] on for further rehabilitation. She seems to be doing well while in [facility], making progress with all disciplines. Today, she complained of right-sided chest pain, 8/10 in intensity, described as a pressure radiating to her right shoulder, neck, and jaw. This was not associated with shortness of breath, nausea, vomiting, or diaphoresis, but it was relieved by nitroglycerin. The patient states that she has had episodes of pain like this for years, sometimes at rest, sometimes with exertion but she never told her primary care provider, so she never had a workup done. She will be transferred to the telemetry floor, so we can pursue further workup of her chest pain. PAST MEDICAL HISTORY: 1. Thyroid cancer, status post thyroidectomy. 2. Depression. 3. Hypertension. 4. Osteopenia. 5. Hyperlipidemia. 6. Recent admission for left hip fracture as stated above. ALLERGIES: With SULFA, the patient had a rash. FAMILY HISTORY: The patient's father of old age. Mother of colon cancer. There was an aunt with diabetes and an uncle that of lung cancer. SOCIAL HISTORY: The patient smoked for 15 years and she quit in 1980. Apparently, she had a history of alcohol abuse but she quit 3 years ago. No history of drug use. Surrogate decision maker is her , Ej Santana, phone number is [phone]. REVIEW OF SYSTEMS: A 14-point review of systems was performed, and all the pertinent negative and positive findings are in the HPI. PHYSICAL EXAMINATION GENERAL: The patient is an elderly lady, lying in bed, in no acute distress. VITAL SIGNS: Temperature 98.0, heart rate is 86, respiratory rate is 18, oxygen saturation 95% on room air, blood pressure is 137/76. HEENT: Pupils are equal. Moist mucous membranes. CHEST: Breath sounds present bilaterally with no added sounds. CVS: Normal S1, S2. Regular rate and rhythm. ABDOMEN: Soft. Bowel sounds are present. EXTREMITIES: No edema. NEURO: She is alert, awake, and oriented x3. Able to move all 4 extremities. DIAGNOSTIC STUDIES/LAB DATA: Her first troponin was negative. EKG performed on 08/12/17 showed sinus rhythm at 80 beats per minute with no acute ischemic changes. ASSESSMENT AND PLAN: Ms. Cash is a 72-year-old lady with a past medical history of thyroid cancer, status post thyroidectomy; depression; hypertension; osteopenia; hyperlipidemia; recent left hip fracture, status post repair, who is [facility]. 1. Chest pain, rule out acute coronary syndrome, rule out pulmonary embolism. The patient states that she has had similar episodes of pain for years but never sought medical attention for it. At this point, she is going to be transferred to telemetry, we are going to check serial troponins and if acute coronary syndrome is ruled out, she is going to have a pharmacological stress test. She is also at risk for pulmonary embolism with her recent orthopedic surgery. She is on warfarin but her INR is not yet therapeutic, so she will have a CT of the chest to rule out pulmonary embolism. 2. Hypothyroidism. We will continue levothyroxine. 3. Urinary tract infection. We will continue levofloxacin day #3. 4. Depression. We will continue citalopram. 5. DVT prophylaxis. The patient will be continued on warfarin, but she should have subcu heparin until her INR is therapeutic. 6. Code status. Do not resuscitate as per her prior records. TIME SPENT: Approximately 50 minutes was spent with the patient's interview, medical records review, physical examination to complete this admission; more than half of this time was spent [id number] with the patient and coordination of care. [id number]/[facility] #: [id number] [facility]
[2017-08-12] MEDS ORDERED: Heparin VIAL(*) 5000 UNITS/ML VIAL (FIVE THOUSAND) SUBCUT SCH (22:00)
[2017-08-13 06:22] LABS: Hematocrit 30 % (35-47); Mean Corpuscular HGB Conc 33 g/dl (31-36); Mean Corpuscular Hemoglobin 29 pg (27-31); Mean Corpuscular Volume 87 fL (80-97); Mean Platelet Volume 6 um3 (7.4-10.4); Red Cell Distribution Width 14 % (10.5-15); White Blood Count 14.9 10^3/ul (3.5-10.8)
[2017-08-13 06:25] LABS: Add Diff/Slide Review? Slide Review Added; Comments Flag Yes
[2017-08-13 06:35] LABS: BUN/Creatinine Ratio 15.6 (8-20); Calcium 8.8 mg/dL (8.6-10.3); EGFR African American 78.9 (>60); EGFR Non-African American 61.4 (>60); Potassium 3.7 mmol/L (3.5-5.0)
[2017-08-13] MEDS: Levothyroxine TAB* 112 MCG TAB PO SCH (06:36)
[2017-08-13 08:01] LABS: Troponin I 0.01 ng/mL (<0.04)
[2017-08-13 08:29] LABS: Eosinophils % 2 % (0-6); Immature Granulocytes 3 % (0-9); Metamyelocytes % 3 % (0-2); Neutrophil % 69 % (38-83); RBC Morphology Normal (Normal)
[2017-08-13] MEDS: Docusate CAP* 100 MG PO SCH ×2 (08:39→20:47)
[2017-08-13] MEDS: LORazepam TAB(*) 0.5 MG PO PRN ×2 (08:52→19:24)
[2017-08-13] MEDS: amLODIPine TAB* 5 MG PO SCH (08:52)
[2017-08-13] MEDS: CMC:Escitalopram (NF) 10 MG TAB PO SCH (08:52)
[2017-08-13] MEDS: Enoxaparin(*) 80 MG/0.8 ML SYR SUBCUT SCH ×2 (11:08→23:24)
--- NOTE | 2017-08-13 14:03 | PN ---
Subjective Date of Service: 08/13/17 Interval History: HOSPITALIST PROGRESS NOTE Patient seen and examined at bedside. She feels better today. Right sided chest pain is less intense, denies dyspnea. Family History: Unchanged from Admission Social History: Unchanged from Admission Past Medical History: Unchanged from Admission Objective Active Medications: Acetaminophen (Tylenol Tab*) 975 mg PO Q6H PRN PRN Reason: PAIN Hydrocodone Bitart/Acetaminophen ([place] 5-325 Tab*) 1 tab PO Q4H PRN PRN Reason: PAIN Amlodipine Besylate (Norvasc Tab*) 10 mg PO DAILY [facility] Last Admin: 08/13/17 08:52 Dose: 10 mg Atorvastatin Calcium (Lipitor*) 10 mg PO 1700 [facility] Last Admin: 08/12/17 17:45 Dose: 10 mg Bisacodyl (Dulcolax Supp*) 10 mg [place] DAILY PRN PRN Reason: CONSTIPATION Docusate Sodium (Colace Cap*) 100 mg PO BID [facility] Last Admin: 08/13/17 08:39 Dose: Not Given Enoxaparin Sodium (Lovenox(*)) 65 mg SUBCUT Q12H [facility] Last Admin: 08/13/17 11:08 Dose: 65 mg Escitalopram Oxalate (Lexapro (Nf)) 20 mg PO DAILY [facility] Last Admin: 08/13/17 08:52 Dose: 20 mg Lactulose (Lactulose*) 30 ml PO TID PRN PRN Reason: CONSTIPATION Levofloxacin (Levaquin Tab*) 250 mg PO Q24H [facility] Last Admin: 08/12/17 17:44 Dose: 250 mg Levothyroxine Sodium (Synthroid Tab*) 112 mcg PO DAILY@0600 [facility] Last Admin: 08/13/17 06:36 Dose: 112 mcg Lorazepam (Ativan Tab(*)) 0.5 mg PO Q8H PRN PRN Reason: ANXIETY Last Admin: 08/13/17 08:52 Dose: 0.5 mg Magnesium Hydroxide (Milk Of Magnesia Liq*) 30 ml PO Q6H PRN PRN Reason: CONSTIPATION Melatonin (Melatonin (Nf)) 6 mg PO BEDTIME PRN PRN Reason: INSOMNIA Mirtazapine (Remeron Tab*) 45 mg PO BEDTIME [facility] Last Admin: 08/12/17 20:52 Dose: 45 mg Nitroglycerin (Nitroglycerin Tab 0.4 Mg*) 0.4 mg SL Q5M PRN PRN Reason: ANGINA Warfarin Sodium (Coumadin Tab(*)) 10 mg PO DAILY@1700 [facility] PRN Reason: Protocol Last Admin: 08/12/17 17:52 Dose: 10 mg Vital Signs 08/13/17 08/13/17 09:10 10:58 Temperature 97.9 F Pulse Rate 81 Respiratory 18 18 Rate Blood Pressure 161/86 (mmHg) O2 Sat by Pulse 97 Oximetry Oxygen Devices in Use Now: None Appearance: Elderly lady lying in bed in NAD. Eyes: No Scleral Icterus Ears/Nose/Mouth/Throat: Mucous Membranes Moist Neck: Trachea Midline Respiratory: Symmetrical Chest Expansion and Respiratory Effort, Clear to Auscultation Cardiovascular: RRR - Normal S1 and S2 Abdominal: NL Sounds; No Tenderness; No Distention Neurological: Alert and Oriented x 3, NL Muscle Strength and Tone Lines/Tubes/Other Access: Clean, Dry and Intact Peripheral IV Nutrition: Taking PO's Result Diagrams: 08/13/17 05:52 08/13/17 05:52 Assess/Plan/Problems-Billing Assessment: Mrs. Cash is a 72yo F with PMH of thyroid CA s/p thyroidectomy, depression , HTN, osteopenia, HLD, recent left hip fracture s/p hemiarthroplasty on who developed right sided CP while in [facility], found to have a PE. - Patient Problems (1) Pulmonary embolism Comment: - CTA chest showed pulmonary emboli in the RML and RLL. - She was on Warfarin, but INR was subtherapeutic. - Will change heparin drip to Lovenox - will need at least 5 days of overlap therapy and 2 consecutive therapeutic INR. (2) UTI (urinary tract infection) Comment: - Urine culture grew Morganella - continue Levofloxacin #4. (3) Hypothyroidism Comment: - Continue Levothyroxine. (4) Depression Comment: - Continue Escitalopram. (5) DVT prophylaxis Comment: - Lovenox/Warfarin. (6) DNR (do not resuscitate) Comment: Status and Disposition: Inpatient for management of PE.
--- NOTE | 2017-08-13 16:00 | PN ---
Progress Note - Progress Note Date of Service: 08/13/17 SOAP: Subjective: []Patient seen for staple removal. She has been diagnosed with a PE. She currently denies any chest pain or shortness of breath. Objective: [] Hamer removed from left hip incision. Incision is clean, dry and intact with no erythema or discharge. Patient tolerated well. Assessment: []s/p L hemiarthroplasty 08.01.17 due to L femoral neck fracture Plan: [] May shower. Do not submerge incision
--- NOTE | 2017-08-13 16:10 | ECHO ---
Patient: EVANGELINA CARMONA [facility] Rec#: [id number] : 1945 Date: 08/13/2017 Age: 72y Height: 167.64 cm / 66.0 in Weight: 64.86 kg / 143.0 lbs Sex: F BSA: 1.73 Room#: [facility] Admit Date#: 08/12/2017 Type: Inpatient Referring: Pavithra Obrien NP Reading: Kenji Calhoun MD [employer]: Ivon Dia,CHAZCS,RDMS CC: Germán Miguel NP CC: Lex Wright MD Transthoracic Echocardiogram Indication: PE BP: 148/73 HR: 73 Rhythm: NSR Findings History: HTN, HLD, ETOH Technical Comments: The study quality is good. Left Ventricle: The left ventricular chamber size is normal. Mild to moderate concentric left ventricular hypertrophy is observed. Global left ventricular wall motion and contractility are within normal limits. The estimated ejection fraction is 55-60%. Abnormal left ventricular diastolic filling is observed, consistent with impaired relaxation. Left Atrium: The left atrium is mildly dilated. Right Ventricle: The right ventricular chamber size and systolic function are within normal limits. The right ventricle wall thickness is mildly increased. Right Atrium: The right atrium appears normal. Aortic Valve: The aortic valve is trileaflet. Systolic excursion of the aortic valve is normal. There is mild aortic regurgitation. There is no evidence of aortic stenosis. Mitral Valve: The mitral valve leaflets are mildly thickened. There is mild mitral regurgitation. There is no evidence of mitral stenosis. Tricuspid Valve: The tricuspid valve leaflets are normal. There is trace to mild tricuspid regurgitation. No pulmonary hypertension is noted. Pulmonic Valve: There is no evidence of pulmonic valve thickening. There is no evidence of pulmonic regurgitation. Pericardium: There is no significant pericardial effusion. Aorta: The aortic root appears normal. There is no dilatation of the aortic arch. Pulmonary Artery: The main pulmonary artery is not well visualized. Venous: The inferior vena cava appears normal in size. There is a greater than 50% respiratory change in the inferior vena cava dimension. Conclusions Mild to moderate concentric left ventricular hypertrophy is observed. Global left ventricular wall motion and contractility are within normal limits. The estimated ejection fraction is 55-60%. The right ventricular chamber size and systolic function are within normal limits. There is mild aortic regurgitation. There is mild mitral regurgitation. There is trace to mild tricuspid regurgitation. There is no significant pericardial effusion. Measurements Name Value Normal Range RVIDd (AP) 2D 1.5 cm (0.9 - 2.6) RVDdMajor (2D) 2.9 cm (2.2 - 4.4) RAd ISD 4CH 4.5 cm (3.4 - 4.9) RA (A4C)W 3.5 cm (2.9 - 4.6) IVSd (2D) 1.2 cm (0.6 - 1) LVPWd (2D) 1.5 cm (0.6 - 1) LVIDd (2D) 4.1 cm (3.6 - 5.4) LVIDs (2D) 2.8 cm - LV FS (2D) 32 % (25 - 45) Aortic Annulus 1.9 cm (1.4 - 2.6) Ao root diameter (2D) 3.1 cm (2.1 - 3.5) Ascending Ao 2.9 cm (2.1 - 3.4) Aortic arch 3 cm (1.8 - 3.4) LA dimension (AP) 2D 2.7 cm (2.3 - 3.8) LAd ISD 4CH 6.1 cm (2.9 - 5.3) LA ISD 4CH W 4.2 cm (2.5 - 4.5) Name Value Normal Range MV E-wave Vmax 0.7 m/sec - MV deceleration time 209 msec - MV A-wave Vmax 0.9 m/sec - MV E:A ratio 0.8 ratio - P. vein S-wave Vmax 0.4 m/sec - P. vein D-wave Vmax 0.3 m/sec - P. vein S:D Vmax ratio 1.4 ratio - P. vein A-wave duration 73 msec - LV septal e' Vmax 0.04 m/sec - LV lateral e' Vmax 0.04 m/sec - LV E:e' septal ratio 17.5 ratio - LV E:e' lateral ratio 17.5 ratio - Name Value Normal Range AV Vmax 1.8 m/sec - AV VTI 33 cm - AV peak gradient 14 mmHg - AV mean gradient 7 mmHg - LVOT Vmax 1 m/sec - LVOT VTI 19.3 cm - LVOT peak gradient 4 mmHg - LVOT mean gradient 2 mmHg - KIRK Vmax 0.5 m/sec - Name Value Normal Range TR Vmax 2.4 m/sec - TR peak gradient 23 mmHg - RAP 3 mmHg - RVSP 26 mmHg - IVC diameter 1.2 cm - Name Value Normal Range PV Vmax 0.8 m/sec - PV peak gradient 2.6 mmHg -
[2017-08-13] MEDS: Levofloxacin TAB* 250 MG PO SCH (16:26)
[2017-08-13] MEDS: Atorvastatin* 10 MG TAB PO SCH (16:27)
[2017-08-13] MEDS: Warfarin TAB(*) 6 MG PO SCH (16:27)
[2017-08-13] MEDS: Mirtazapine TAB* 15 MG PO SCH (20:47)
[2017-08-13] MEDS: HYDROcodone/ACETAMIN 5-325 MG* 1 TAB PO PRN (21:11)
--- NOTE | 2017-08-14 01:29 | CONS ---
CC: JESSICA Miguel CONSULTATION REPORT: DATE OF CONSULT: REASON FOR CONSULTATION: Pulmonary embolism and thrombocytosis. HISTORY OF PRESENT ILLNESS: This is a 72-year-old female who had a pulmonary embolus yesterday on postoperative day 11 after left hip hemiarthroplasty. She fell on 07/31/17 and was brought to the emergency room after developing acute left hip pain. She was found to have a fracture, went to the operating room on 08/01/17. Surgery was uncomplicated and she was placed on heparin and Coumadin DVT prophylaxis postoperatively. She was sent to the [facility] on 08/03/17 and had been doing well. Yesterday, she complained of right-sided chest pain, 8/10 in intensity, radiating up her right jaw and neck. No shortness of breath, nausea , vomiting, diaphoresis. It last approximately 20 minutes and then self resolved. She had an EKG that was unremarkable and then sent in for a CT angiogram. The CTA showed right middle and lower lobe segmental pulmonary emboli. She had a transthoracic echocardiogram that showed mild concentric LVH and normal RV function. She was transferred up to [address] [place] [address] Apple. She is started on Lovenox 1 mg/kg subcu b.i.d. She had started on Coumadin on 08/02/17 at 6 mg and given 4 mg on 08/03/17, 6 mg on 08/04/17 and 08/05/17, then 7.5 mg on 08/06/17 and 08/07/17, then 10 mg on 08/09/17 through 08/12/17, then brought to 12 mg yesterday. Her INR was 1.62 on 08/13/17 and 1.48 on 08/09/17, and it was 1.06 on 08/04/17. She denies any prior history of blood clots. She has no family history of thrombosis. She has never had difficulty with abnormal blood counts. CBCs have had a hemoglobin rising steadily to 10 from 8.7 on 08/04/17, she had a platelet count that has gone from 248 on 08/04/17 up to 968 today. It was 739 on 08/12/17, 527 on 08/08/17, and 388 on 08/06/17. No history of thrombocytosis in the past. She has an elevated white count last 2 days, also no history of leukocytosis on her prior CBCs. Denies fevers, chills, or night sweats. Chest pain is resolved and she has no shortness of breath. Hip pain is well controlled. She has not had any swelling in either ankle. PAST MEDICAL HISTORY: 1. Thyroid cancer, status post thyroidectomy. 2. Depression and anxiety. She had admission at [facility] last summer and has had psychiatric visits at [facility], currently on dual antidepressants and anxiety medicine and doing well. 3. Hypertension. 4. Osteopenia. 5. Hyperlipidemia. 6. Hypothyroidism. PAST SURGICAL HISTORY: 1. Left hip replacement on 08/01/17. 2. Tonsillectomy in 1954. 3. 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 CURRENT MEDICATIONS: 1. Coumadin 12 mg p.o. a day. 2. Lovenox 55 mg daily. 3. Tylenol 975 q.6 p.r.n. 4. Earle q.4 p.r.n. 5. Norvasc 10 mg daily. 6. Lipitor 10 mg daily. 7. Bisacodyl 10 mg daily. 8. Colace 100 b.i.d. 9. Lexapro 20 mg daily. 10. Lactulose 30 mg t.i.d. 11. Levofloxacin 250 mg q.24 hours. 12. Synthroid 112 mcg daily. 13. Ativan 0.5 mg q.8 p.r.n. 14. Melatonin 6 mg at bedtime. 15. Remeron 45 mg at bedtime. 16. Nitroglycerin 0.4 p.r.n. chest pain. FAMILY HISTORY: Mother had colon cancer, father of old age, and there is diabetes in the family. SOCIAL HISTORY: She has a remote smoking history and a prior alcohol abuse history. She is and her is her surrogate decision maker. REVIEW OF SYSTEMS: HEENT: Negative. Neuro: Negative. Pulmonary: No shortness of breath, chest pain. Cardiac: No palpitations, history of hypertension. GI: Negative. : Negative. Musculoskeletal: Hip fracture, pain is controlled at this time. Skin: Negative. Hematologic: On anticoagulants. PHYSICAL EXAM: Temperature 97.9, BP 161/86, heart rate 81, respirations 18, O2 sat 97%. HEENT: Mucosa moist. No lesions, no cervical or supraclavicular lymphadenopathy. Lungs: Clear to auscultation. Heart: Regular rhythm. S1 and S2. No murmurs, rubs, or gallop. Abdomen: No spleen tip. No liver edge. Good bowel sounds, nondistended. Extremities: Left hip fracture. No left ankle edema, right negative. Neuro: Alert and oriented x3 and grossly nonfocal. ASSESSMENT AND PLAN: A 72-year-old female who had a pulmonary embolus after a left hip surgery. Several issues today: 1. Anticoagulation. Agree with Lovenox and Coumadin. She had 5 days on 10 mg of Coumadin daily with INR 1.62 and increased to 12 mg today. Continue Lovenox until INR > 2 for 48 hrs. Alternatively, she has normal renal function and could be treated with Eliquis or Xarelto. 2. Thrombocytosis. It is acute over the last 3 days and is likely reactive. We will check iron studies, but then follow. We will hold on sending molecular studies unless thrombocytosis is persistent. 3. Duration of anticoagulation should be 3 months and then can discontinue 4. We will discuss the case with Dr. Apple tomorrow. 5. We will follow up as an outpatient through completion of anticoagulation. [id number]/[facility] #: [id number] NAET
[2017-08-14] MEDS: Levothyroxine TAB* 112 MCG TAB PO SCH (06:17)
[2017-08-14] MEDS: amLODIPine TAB* 5 MG PO SCH (08:53)
[2017-08-14] MEDS: Docusate CAP* 100 MG PO SCH ×2 (08:54→20:31)
[2017-08-14] MEDS: CMC:Escitalopram (NF) 10 MG TAB PO SCH (08:55)
[2017-08-14] MEDS: Enoxaparin(*) 80 MG/0.8 ML SYR SUBCUT SCH ×2 (10:14→23:13)
[2017-08-14] MEDS: Levofloxacin TAB* 250 MG PO SCH (15:00)
[2017-08-14] MEDS: Loperamide CAP* 2 MG PO SCH (15:01)
[2017-08-14] MEDS: Warfarin TAB(*) 6 MG PO SCH (17:18)
[2017-08-14] MEDS: Atorvastatin* 10 MG TAB PO SCH (17:18)
--- NOTE | 2017-08-14 17:45 | PN ---
Subjective Date of Service: 08/14/17 Interval History: yolanda removed by ortho yesterday. warfarin increasesed to 12. INR up to 1.7 from 1.62. Denies complaints. Family History: Unchanged from Admission Social History: Unchanged from Admission Past Medical History: Unchanged from Admission Objective Active Medications: Acetaminophen (Tylenol Tab*) 975 mg PO Q6H PRN PRN Reason: PAIN Last Admin: 08/14/17 08:00 Dose: 975 mg Hydrocodone Bitart/Acetaminophen ([place] 5-325 Tab*) 1 tab PO Q4H PRN PRN Reason: PAIN Last Admin: 08/13/17 21:11 Dose: 1 tab Amlodipine Besylate (Norvasc Tab*) 10 mg PO DAILY [facility] Last Admin: 08/14/17 08:53 Dose: 10 mg Atorvastatin Calcium (Lipitor*) 10 mg PO 1700 [facility] Last Admin: 08/14/17 17:18 Dose: 10 mg Bisacodyl (Dulcolax Supp*) 10 mg VT DAILY PRN PRN Reason: CONSTIPATION Docusate Sodium (Colace Cap*) 100 mg PO BID [facility] Last Admin: 08/14/17 08:54 Dose: 100 mg Enoxaparin Sodium (Lovenox(*)) 65 mg SUBCUT Q12H [facility] Last Admin: 08/14/17 10:14 Dose: 65 mg Escitalopram Oxalate (Lexapro (Nf)) 20 mg PO DAILY [facility] Last Admin: 08/14/17 08:55 Dose: 20 mg Lactulose (Lactulose*) 30 ml PO TID PRN PRN Reason: CONSTIPATION Levofloxacin (Levaquin Tab*) 250 mg PO Q24H [facility] Last Admin: 08/14/17 15:00 Dose: 250 mg Levothyroxine Sodium (Synthroid Tab*) 112 mcg PO DAILY@0600 [facility] Last Admin: 08/14/17 06:17 Dose: 112 mcg Loperamide HCl (Imodium Cap*) 2 mg PO DAILY [facility] Last Admin: 08/14/17 15:01 Dose: 2 mg Lorazepam (Ativan Tab(*)) 0.5 mg PO Q8H PRN PRN Reason: ANXIETY Last Admin: 08/13/17 19:24 Dose: 0.5 mg Magnesium Hydroxide (Milk Of Magnesia Liq*) 30 ml PO Q6H PRN PRN Reason: CONSTIPATION Melatonin (Melatonin (Nf)) 6 mg PO BEDTIME PRN PRN Reason: INSOMNIA Mirtazapine (Remeron Tab*) 45 mg PO BEDTIME [facility] Last Admin: 08/13/17 20:47 Dose: 45 mg Nitroglycerin (Nitroglycerin Tab 0.4 Mg*) 0.4 mg SL Q5M PRN PRN Reason: ANGINA Pharmacy Profile Note (Coumadin Daily Reminder*) 0 note FOLLOW UP 1700 [facility] Last Admin: 08/14/17 17:43 Dose: 1 note Warfarin Sodium (Coumadin Tab(*)) 12 mg PO DAILY@1700 [facility] PRN Reason: Protocol Last Admin: 08/14/17 17:18 Dose: 12 mg Vital Signs 08/13/17 08/13/17 08/13/17 19:24 19:28 20:00 Temperature 98.8 F Pulse Rate 77 Respiratory 16 16 16 Rate Blood Pressure 141/74 (mmHg) O2 Sat by Pulse 97 Oximetry 08/13/17 08/13/17 08/13/17 21:11 23:25 23:26 Temperature Pulse Rate Respiratory 16 20 20 Rate Blood Pressure (mmHg) O2 Sat by Pulse Oximetry 08/13/17 08/14/17 08/14/17 23:32 03:29 07:14 Temperature 97.9 F 98.2 F 98.4 F Pulse Rate 79 72 73 Respiratory 20 20 16 Rate Blood Pressure 148/76 132/85 153/76 (mmHg) O2 Sat by Pulse 95 96 94 Oximetry 08/14/17 08/14/17 08/14/17 08:00 11:04 15:01 Temperature 98.1 F Pulse Rate 80 Respiratory 16 16 16 Rate Blood Pressure 128/75 (mmHg) O2 Sat by Pulse 96 Oximetry 08/14/17 15:40 Temperature 98.2 F Pulse Rate 77 Respiratory 16 Rate Blood Pressure 128/70 (mmHg) O2 Sat by Pulse 97 Oximetry Oxygen Devices in Use Now: None Appearance: NAD Ears/Nose/Mouth/Throat: NL Teeth, Lips, Gums, Mucous Membranes Moist Neck: NL Appearance and Movements; NL JVP Respiratory: Symmetrical Chest Expansion and Respiratory Effort, Clear to Auscultation Cardiovascular: NL Sounds; No Murmurs; No JVD, RRR Abdominal: NL Sounds; No Tenderness; No Distention Extremities: No Edema Skin: No Rash or Ulcers Neurological: Alert and Oriented x 3, NL Sensation, NL Muscle Strength and Tone Result Diagrams: 08/13/17 05:52 08/13/17 05:52 Additional Lab and Data: Laboratory Results - last 24 hr 08/14/17 12:52 INR (Anticoag Therapy) 1.70 H z Assess/Plan/Problems-Billing Assessment: Mrs. Cash is a 72yo F with PMH of thyroid CA s/p thyroidectomy, depression , HTN, osteopenia, HLD, recent left hip fracture s/p hemiarthroplasty on who developed right sided CP while in PMRU, found to have a PE. - Patient Problems (1) Pulmonary embolism Current Visit: Yes Status: Acute Code(s): I26.99 - OTHER PULMONARY EMBOLISM WITHOUT ACUTE COR PULMONALE SNOMED Code(s): 26747794 Comment: - CTA chest showed pulmonary emboli in the RML and RLL. - appreciate heme/onc recs. increased Warfarin to 12mg, INR daily. - On therapeutic Lovenox, bridging to coumadin (overlap 2 days) - consider NOAC (2) DVT prophylaxis Current Visit: Yes Status: Acute Code(s): OVS2737 - SNOMED Code(s): 520247696 Comment: - Lovenox/Warfarin. (3) Hypothyroidism Current Visit: Yes Status: Acute Code(s): E03.9 - HYPOTHYROIDISM, UNSPECIFIED SNOMED Code(s): 36719305 Comment: - Continue Levothyroxine. (4) UTI (urinary tract infection) Current Visit: Yes Status: Acute Comment: - Urine culture grew Morganella - continue Levofloxacin #5. (5) HTN (hypertension) Current Visit: No Status: Acute Code(s): I10 - ESSENTIAL (PRIMARY) HYPERTENSION SNOMED Code(s): 05887777 Comment: - SBP 120-150s. - Continue amlodipine 10mg. (6) Depression Current Visit: Yes Status: Acute Code(s): F32.9 - MAJOR DEPRESSIVE DISORDER , SINGLE EPISODE, UNSPECIFIED SNOMED Code(s): 82777697 Comment: - Continue Escitalopram. Status and Disposition: Inpatient for management of PE. Attending: Jessee Stark
[2017-08-14] MEDS: Mirtazapine TAB* 15 MG PO SCH (20:31)
[2017-08-14] MEDS: LORazepam TAB(*) 0.5 MG PO PRN (20:31)
[2017-08-14] MEDS: HYDROcodone/ACETAMIN 5-325 MG* 1 TAB PO PRN (21:39)
[2017-08-15] MEDS: Levothyroxine TAB* 112 MCG TAB PO SCH (06:09)
[2017-08-15] MEDS: Loperamide CAP* 2 MG PO SCH (08:56)
[2017-08-15] MEDS: CMC:Escitalopram (NF) 10 MG TAB PO SCH (08:56)
[2017-08-15] MEDS: amLODIPine TAB* 5 MG PO SCH (08:56)
[2017-08-15] MEDS: Docusate CAP* 100 MG PO SCH (08:58)
[2017-08-15] MEDS: Enoxaparin(*) 80 MG/0.8 ML SYR SUBCUT SCH (11:52)
[2017-08-15 13:00] VITALS: BP 122/67
--- NOTE | 2017-08-15 13:42 | DS ---
DISCHARGE SUMMARY: DATE OF ADMISSION: 08/12/17 DATE OF DISCHARGE: 08/15/17 ADMITTING PROVIDER: Mandi Apple MD ATTENDING PHYSICIAN: Mandi Apple MD and Jessee Stark MD PRIMARY CARE PROVIDER: Germán Miguel NP; Kobi Swenson MD (PMR). CHIEF COMPLAINT: Chest pain. PRINCIPAL DIAGNOSIS: Pulmonary embolism in the setting of recent left femoral neck fracture rehabilitation. PAST MEDICAL HISTORY: 1. Thyroid cancer, status post thyroidectomy. 2. Depression. 3. Hypertension. 4. Osteopenia. 5. Hyperlipidemia. 6. Left hip fracture. HISTORY OF PRESENT ILLNESS: Mrs. Olga Cash is a 72-year-old female, PMH as above. She presented to [facility] on July 31 after a fall with resultant left hip pain. She was found to have a left hip displaced femoral neck fracture, underwent uncemented left hip bipolar hemiarthroplasty on and discharged on 08/03/17 to PMR unit for further rehabilitation, had been doing well and was scheduled to be discharged around August 14 approximately. However on August 13 date of admission, she has developed 8/ 10 right-sided chest pain described as pressure radiating into her right shoulder, neck, and jaw. She did not have any shortness of breath, nausea, vomiting, diaphoresis, did improve with nitroglycerin administration. The patient had a CT angiogram of the chest, which demonstrated pulmonary emboli in the right middle and lower lobe segmental and subsegmental artery branches. The patient had been already on Coumadin with subtherapeutic INRs for her DVT prophylaxis. She was started on Lovenox therapeutic dosing and given the resistance to Coumadin with increasing doses, Dr. Knox of Hematology/Oncology was consulted. The patient's Coumadin was raised to 12 mg daily from 10 mg; however, the patient's still INR was decreased on day of discharge to 1.[address] Knox also had recommended that the patient given her adequate kidney function will be eligible for NOAC such as Eliquis or apixaban and the patient was eager for this option. She will be started on Eliquis 10 mg b.i.d. for 7 days to be followed by 5 mg b.i.d. for at least 3 months with followup with Dr. Knox. She is returning to PMR unit for further evaluation by Dr. Swenson and physical therapy staff, but hopefully will be able to be discharged home in the coming days. Of note, her orthopedic surgeon was Dr. Jorge A Tellez, and she should follow up with him as well. DISCHARGE MEDICATIONS: Include: 1. Eliquis 5 mg p.o. b.i.d. for 3 months (per note 10 mg b.i.d. for initial 7 days) (new medication). 2. Seroquel 100 mg p.o. b.i.d. 3. Mirtazapine 45 mg p.o. q.h.s. 4. Melatonin 6 mg p.o. q.h.s. p.r.n. for sleep. 5. Levothyroxine 112 mcg p.o. daily. 6. Lexapro 20 mg p.o. daily. 7. Docusate 100 mg p.o. daily. 8. Buspirone 10 mg p.o. t.i.d. 9. Atorvastatin 10 mg p.o. q.p.m. 10. Aspirin 81 mg p.o. daily. 11. Norvasc 10 mg p.o. daily. DISCHARGE DIET: Unrestricted, unchanged. ACTIVITY LEVEL: Continue physical therapy within the PMR unit. No restrictions on weightbearing. FOLLOWUP: Please follow up with Germán Marino within 3 to 5 days of discharge from PMR unit and Dr. Jorge A Tellez of orthopedics for femur fracture followup. TIME SPENT: Time spent on discharge was 35 minutes. [id number]/[facility] #: [id number] [facility] CENTERChencho
== END 2017-08-15 14:15 | DRG 176 ==
LOC: MEDTELE 07:41 → INTOOBSV 15:44 → MEDTELE 15:44 → OBSVTOIN 08-13 07:41 → MEDTELE 08-13 15:49
PROVIDERS: ADMIT Internal Medicine; ATTEND Internal Medicine
DX: I26.99 Other pulmonary embolism without acute cor pulmonale (principal); N39.0 Urinary tract infection, site not specified; D47.3 Essential (hemorrhagic) thrombocythemia; F32.9 Major depressive disorder, single episode, unspecified; I10 Essential (primary) hypertension; M85.80 Other specified disorders of bone density and structure, unspecified site; E78.5 Hyperlipidemia, unspecified; Z96.642 Presence of left artificial hip joint; Z85.850 Personal history of malignant neoplasm of thyroid; Z88.2 Allergy status to sulfonamides; Z80.0 Family history of malignant neoplasm of digestive organs; Z80.1 Family history of malignant neoplasm of trachea, bronchus and lung; Z87.891 Personal history of nicotine dependence; F41.9 Anxiety disorder, unspecified; Z79.1 Long term (current) use of non-steroidal anti-inflammatories (NSAID); Z79.899 Other long term (current) drug therapy; Z83.3 Family history of diabetes mellitus
CPT/HCPCS: 36415; 71275; 80048; 84484; 84520; 85025; 85610; 85730; 93306; 99223; A9270-GY; G0378; J1644; J1650; Q9967

== ENCOUNTER 2017-08-15 12:46 | Inpatient (IN) | payer MEDICARE, BC ==
[2017-08-15] MEDS ORDERED: Acetaminophen TAB* 325 MG PO PRN (15:42)
[2017-08-15] MEDS ORDERED: Magnesium Hydroxide LIQ* 30 ML UDC PO PRN (15:42)
[2017-08-15] MEDS ORDERED: Senna TAB PO PRN (15:42)
[2017-08-15] MEDS ORDERED: CMCS: Melatonin (NF) 3 MG TAB PO PRN (15:50)
[2017-08-15] MEDS: Levofloxacin TAB* 250 MG PO SCH (16:27)
[2017-08-15] MEDS: Atorvastatin* 10 MG TAB PO SCH (17:37)
[2017-08-15] MEDS: LORazepam TAB(*) 0.5 MG PO PRN (19:22)
[2017-08-15] MEDS: Mirtazapine TAB* 15 MG PO SCH (20:03)
[2017-08-15] MEDS: Apixaban* 5 MG TAB PO SCH (20:03)
--- NOTE | 2017-08-15 20:53 | HP ---
ADMISSION HISTORY AND PHYSICAL: DATE OF ADMISSION: 08/15/17 REASON FOR ADMISSION: Left hip fracture; pulmonary embolus. HISTORY OF PRESENT ILLNESS: For complete history of the events leading up to her rehab stay, please see the history and physical dictated by me on 08/03/17. Briefly, Olga Cash is a 72-year-old female. She has a medical history significant for COPD and anxiety and depression as well as hypertension. She tripped off her porch at home and landed on a concrete patio and fractured her left hip. She was taken to the operating room on 08/01/17 after falling on . She underwent an uncemented bipolar hemiarthroplasty. She came to the rehab unit 08/03/17. She did very well initially. She gradually weaned off oxygen and improved in her functional status. On 08/12/17, at 1300, she developed the acute onset of chest pain. She told the nurse this happens periodically. An EKG was ordered, which was unrevealing. She was evaluated by the hospitalist service and moved to the acute hospital floor. She had a CT angiogram which was positive for an acute pulmonary embolus. At the time of transfer, she was on Coumadin 10 mg daily. She was put on Lovenox 65 mg twice a day and her Coumadin was increased to 12 mg daily. Her INR was still not therapeutic after several days of Coumadin 12 and it was decided to stop her Lovenox, stop her Coumadin, and treat her with a new oral anticoagulant, Eliquis 10 mg twice a day for a week then go down to 5 mg twice a day. The patient was medically stable. She was felt suitable to return to rehab. She is now being admitted to inpatient rehab to complete her rehabilitation. PAST MEDICAL HISTORY: As noted for depression, anxiety, COPD, hypertension, hyperlipidemia, and hypothyroidism. CURRENT MEDICATIONS: Include: 1. Norvasc. 2. Lipitor. 3. Synthroid. 4. Lexapro. 5. Remeron. 6. Seroquel. 7. Hydrocodone for pain control. 8. Melatonin. 9. Eliquis. 10. Ativan. ALLERGIES: To SULFA DRUGS are noted. SOCIAL HISTORY: She is a former smoker, former drinker. She lives with her in a 1-story house with 2 steps to enter. REVIEW OF SYSTEMS: No current shortness of breath or chest pain. PHYSICAL EXAMINATION VITAL SIGNS: The patient's temperature is 98.2, blood pressure is 117/72, pulse 83, and respirations 18. HEENT: Her extraocular movements are intact. Tongue is midline. NECK: Supple. LUNGS: Sounded clear to auscultation bilaterally. HEART: Sounds are regular, S1 and S2 are audible. ABDOMEN: Soft and nontender. EXTREMITIES: Her left hip has a wound, which is healed. NEUROLOGIC: She is awake, alert, and oriented. Muscle strength is 5/5 except the left hip, which is 3/5 secondary to pain. FUNCTIONAL EXAM: She transfers with supervision. ASSESSMENT: 1. Left hip fracture, status post hemiarthroplasty. 2. Pulmonary embolus. PLAN: We are going to integrate her into a comprehensive and therapeutic rehab program on the following goals: 1. Physical Therapy will see the patient. They are going to work on functional transfer training, ambulation training with a walker. 2. Occupational Therapy will see the patient, work on her activities of daily living including toileting and toilet transfers. 3. We will continue her Eliquis for treatment of her pulmonary embolus. 4. Adequate analgesia. 5. For her depression, we are going to resume her Seroquel and continue her Remeron and Lexapro. 6. She has a urinary tract infection. She is finishing up a course of Levaquin for that. Her urine culture grew out morganella. She will have 2 more doses of Levaquin and then stop. 7. Family training as needed. 8. supervisor special services will be closely involved to make sure that any services and equipment that the patient requires are in place prior to discharge. 9. Advance directives: The patient has a healthcare proxy. She wishes DNR status. I have written that in the chart. ESTIMATED LENGTH OF STAY: Five to seven days. [id number]/[facility] #: [id number] NATE
[2017-08-15] MEDS ORDERED: QUEtiapine TAB* 100 MG PO SCH (21:00)
[2017-08-15] MEDS: Docusate CAP* 100 MG PO SCH (22:03)
[2017-08-15] MEDS: HYDROcodone/ACETAMIN 5-325 MG* 1 TAB PO PRN (22:05)
[2017-08-16] MEDS: Levothyroxine TAB* 112 MCG TAB PO SCH (05:39)
[2017-08-16] MEDS: [UNRECOGNIZED DRUG - OTHER] PO SCH (08:12)
[2017-08-16] MEDS: Apixaban* 5 MG TAB PO SCH ×2 (08:12→20:00)
[2017-08-16] MEDS: amLODIPine TAB* 5 MG PO SCH (08:12)
[2017-08-16] MEDS: Docusate CAP* 100 MG PO SCH ×2 (08:13→20:25)
[2017-08-16] MEDS: QUEtiapine TAB* 100 MG PO SCH ×2 (10:34→20:01)
--- NOTE | 2017-08-16 12:42 | PN ---
Progress Note - Progress Note Date of Service: 08/16/17 Note: Nursing notes reviewed. No new symptoms overnight. No chest pain, shortness of breath or abdominal pain. She is anxious to go home soon. Acetaminophen (Tylenol Tab*) 650 mg PO Q6H PRN PRN Reason: FEVER/PAIN Hydrocodone Bitart/Acetaminophen ([place] 5-325 Tab*) 1 tab PO Q6H PRN PRN Reason: PAIN - MODERATE TO SEVERE Last Admin: 08/15/17 22:05 Dose: 1 tab Amlodipine Besylate (Norvasc Tab*) 10 mg PO DAILY [facility] Last Admin: 08/16/17 08:12 Dose: 10 mg Apixaban (Eliquis*) 10 mg PO BID [facility] Stop: 08/22/17 21:01 Last Admin: 08/16/17 08:12 Dose: 10 mg Atorvastatin Calcium (Lipitor*) 10 mg PO 1700 [facility] Last Admin: 08/15/17 17:37 Dose: 10 mg Docusate Sodium (Colace Cap*) 100 mg PO BID [facility] Last Admin: 08/16/17 08:13 Dose: Not Given Escitalopram Oxalate (Lexapro (Nf)) 20 mg PO DAILY [facility] Last Admin: 08/16/17 08:12 Dose: 20 mg Levofloxacin (Levaquin Tab*) 250 mg PO Q24H [facility] Stop: 08/16/17 23:59 Last Admin: 08/15/17 16:27 Dose: 250 mg Levothyroxine Sodium (Synthroid Tab*) 112 mcg PO DAILY@0600 [facility] Last Admin: 08/16/17 05:39 Dose: 112 mcg Lorazepam (Ativan Tab(*)) 0.5 mg PO Q8H PRN PRN Reason: ANXIETY Last Admin: 08/15/17 19:22 Dose: 0.5 mg Magnesium Hydroxide (Milk Of Magnesia Liq*) 30 ml PO Q6H PRN PRN Reason: CONSTIPATION Melatonin (Melatonin (Nf)) 6 mg PO BEDTIME PRN PRN Reason: INSOMNIA Mirtazapine (Remeron Tab*) 45 mg PO BEDTIME [facility] Last Admin: 08/15/17 20:03 Dose: 45 mg Quetiapine Fumarate (Seroquel Tab*) 100 mg PO BID [facility] Last Admin: 08/16/17 10:34 Dose: 100 mg Senna (Senokot Tab*) 2 tab PO BEDTIME PRN PRN Reason: CONSTIPATION Vital Signs Temp Pulse Resp BP Pulse Ox 98.0 F 83 18 155/82 96 08/16/17 05:41 08/16/17 05:41 08/16/17 05:41 08/16/17 05:41 08/16/17 05:41 PE: Gen: no acute distress. alert and appropriate. Lungs: clear bilaterally. Heart: regular rate and rhythm Abdomen: + bs, soft, non-tender and non-distended Ext: no edema. Laboratory Results - last 24 hr 08/16/17 08:48 INR (Anticoag Therapy) 2.58 H A/P: 72yo woman with left hip fx s/p hemiarthroplasty and pulmonary embolism. #Left hip fracture: hip precautions. wbat. f/u with Dr. Tellez #Pulmonary embolism: On Eliquis 10mg bid for 7 days then 5mg bid for total of 3 months. Her last dose of coumadin was 12mg on 08/14/17. I d/w Dr. Knox who recommended to give her 5mg Vit K today to counteract the coumadin. INR in AM. Hematology f/u after discharge. #Depression: On home meds and ativan prn. #PT/OT: evaluations in progress #Advanced Directives: DNR. #Estimated LOS: Will IPOC with team.
--- NOTE | 2017-08-16 13:23 | PMRUTEAM ---
PMRU: Goals Current Status: Nursing: Current Status Skin Deviations [Left Arm] Previous Access Point Skin Deviations [Left Buttocks Non Pressure Ulcer ] Skin Deviations [Left Hip] Incision Skin Deviations [Left Arm] Previous Access Point Skin Deviations [Left Hip] Incision Skin Deviations [Buttocks] Abrasion Skin Deviation Description [ bleeding reoccur complressive dresssing in place Left Arm] Skin Deviation Description [ blanchable spoot healing Left Buttocks] Skin Deviation Description [ healing Left Hip] Skin Deviation Description [ forearm Left Arm] Skin Deviation Description [ femoral neck fracture Left Hip] Skin Deviation Description [ patient states she had this before hospital stay. Buttocks] Physical Therapy: Current Status Bed Mobility Assistance Independent Transfer Moblility Assistance supervision Transfer/Bed Mobility Rolling Walker Recommended Devices Ambulation Assistance supervision Ambulation Assistive Devices Rolling Walker Stairs Assistance supervision Stairs Recommended Devices Two Rails Number of Stairs 5 Occupational Therapy: Current Status Upper Body Dressing Supervision Lower Body Dressing Min Assist Bathing Min Assist Toileting Supervision Toilet Transfer Supervision Shower Transfer Supervision Eating Independent Rec Therapy: Current Status Summary of Assessment and Pt. was on the medical floor then returned to the Clinical Impression unit. Information above was validated by pt. that it remains the same. RT services were re- introduced. Pt. was engaged in conversation, open to continued visits and expressed a desire to volunteer on the unit after d/c. Treatment Goals Pt. will engage in leisure activities while on the unit. Treatment Plan Provide RT services and encourage involvement. Social Work: Current Status Discharge Plan return home with home care svs and family support Potential for Family Training pt's is attending family training 08/16 @ 1pm Discharge With return home with home care svs and family support Goals: Physical Therapy: Updated Goals Modified independent bed mobility, transfers, ambulation and stairs. to be trained to assist with remembering hip precautions. Occupational Therapy: Initial Goals Goals to be Completed in (Days 2-5 ) Upper Body Bathing Routine Independent Lower Body Bathing Routine Modified Independent with Upper Body Dressing Routine Independent Lower Body Dressing Routine Modified Independent with Toilet Hygeine and Clothing Modified Independent with Management Routine Toilet Transfer Routine Modified Independent with Tub Transfer Routine Modified Independent with Functional Transfers for ADL Modified Independent with Grooming Routine Independent Feeding Routine Independent Social Work: Goals Discharge Plan return home with home care svs and family support Potential for Family Training pt's is attending family training 08/16 @ 1pm Discharge With return home with home care svs and family support Care Plan: Care Plan Cardiovascular- Improve/Maintain Start: 08/15/17 18:47 Freq: DAILY Status: Active Target: Protocol: Activity Type Activity Date Activity User E-Sign Co-Sign Detail Recorded Client Recorded Date Recorded By Document 08/16/17 00:28 [id number] 08/16/17 00:30 [id number] 08/16/17 00:28 PMRU Outcome: Cardiovascular Vital Signs q Shift for 48hrs Then BID Yes Daily Weight Ordered No Current Cardiovascular Outcome/Goal Maintain/ Achieve Baseline HR, BP , Perfusion Free of Abnormal Cardiac Symptoms Communication-Improve/Maintain Start: 08/15/17 18:47 Freq: DAILY Status: Active Target: Protocol: Activity Type Activity Date Activity User E-Sign Co-Sign Detail Recorded Client Recorded Date Recorded By Document 08/16/17 00:28 [id number] 08/16/17 00:30 [id number] 08/16/17 00:28 PMRU Outcome: Communication/Cognitive Status Outcome/Goals Use Comm Tools/ Devices Makes Needs Known Effectively Progression Toward Outcomes/Goals Progressing Coping/Psych-Improve/Maintain Start: 08/15/17 18:47 Freq: DAILY Status: Active Target: Protocol: Activity Type Activity Date Activity User E-Sign Co-Sign Detail Recorded Client Recorded Date Recorded By Document 08/16/17 12:43 [id number] 08/16/17 12:44 [id number] 08/16/17 12:43 PMRU Outcome: Coping/Psychosocial Coping Outcome/Goals Verbalization of Acceptance of Rehab Admit Willingness to Participate in Treatment Plan and Basic Needs Psychosocial Outcome/Goals Maintain/ Improve Emotional Health Cooperate/ Participate in Plan Progression Toward Outcome/Goals - Progressing Coping Progression Toward Outcome/Goals - Progressing Psychosocial DVT Prophylaxis- Improve/Maintain Start: 08/15/17 18:47 Freq: DAILY Status: Active Target: Protocol: Activity Type Activity Date Activity User E-Sign Co-Sign Detail Recorded Client Recorded Date Recorded By Document 08/16/17 12:43 [id number] 08/16/17 12:44 [id number] 08/16/17 12:43 PMRU Outcome: DVT Prophylaxis Outcome/Goals Remains Free of DVT Complies with DVT Prophylaxis /Treatment TEDS Stockings on Every AM, Off at HS Progression Toward Outcome/Goals Progressing Discharge Planning - Improve/Maintain Start: 08/15/17 18:47 Freq: DAILY Status: Active Target: Protocol: Activity Type Activity Date Activity User E-Sign Co-Sign Detail Recorded Client Recorded Date Recorded By Document 08/16/17 00:28 [id number] 08/16/17 00:30 [id number] 08/16/17 00:28 PMRU Outcome: Discharge Planning Update Patient Family No Outcome/Goals Demonstrates Understanding of Discharge Plan Progression Toward Outcome/Goals Progressing Education-Improve/Maintain Start: 08/15/17 18:47 Freq: DAILY Status: Active Target: Protocol: Activity Type Activity Date Activity User E-Sign Co-Sign Detail Recorded Client Recorded Date Recorded By Document 08/16/17 12:43 [id number] 08/16/17 12:44 [id number] 08/16/17 12:43 PMRU Outcome: Education Outcome/Goals Demonstrate/ Verbalize Understanding of Written Discharge Instructions Encourage Questions Progression Toward Outcome/Goals Progressing /GI-Improve/Maintain Start: 08/15/17 18:47 Freq: DAILY Status: Active Target: Protocol: Activity Type Activity Date Activity User E-Sign Co-Sign Detail Recorded Client Recorded Date Recorded By Document 08/16/17 12:43 [id number] 08/16/17 12:44 [id number] 08/16/17 12:43 PMRU Outcome: Genitourinary/ Gastrointestinal Genitourinary- Outcome/Goals Maintain/ Achieve Urinary Continence Remain Free of Hospital- Acquired UTI Gastrointestinal-Outcome/Goals Prevent Constipation Laxatives as Ordered Progression Toward Outcome/Goals - Progressing Progression Toward Outcome/Goals - GI Progressing Mobility- Improve/Maintain Start: 08/15/17 18:50 Freq: DAILY Status: Active Target: Protocol: Activity Type Activity Date Activity User E-Sign Co-Sign Detail Recorded Client Recorded Date Recorded By Document 08/15/17 18:50 [id number] 08/15/17 18:52 [id number] 08/15/17 18:50 PMRU Outcome: Mobility Physical Therapy Evaluation and Yes Treatment Activity OOB with Assistance Yes WBAT Yes Device Yes Assistance Yes Patient to be seen 5x/wk for 60-120 min/ Therex day for: Mobility Training Gait Training Balance Outcome/Goals Maintain/ Achieve Baseline Mobility Status Improve Mobility Status Demonstrates Proper Use of Assistive Devices Free from Complications of Immobility Bed Mobility Yes: independent Transfers Yes: independent with rolling walker Gait x ft Yes: independent with rolling walker 300' Up/Down Stairs Yes: independent up/ down 10 stairs with 2 rails. Goal Comment patient will recall all hip precautions and be able to demonstrate safe movement with their application. Neurological- Improve/Maintain Start: 08/15/17 18:47 Freq: DAILY Status: Active Target: Protocol: Activity Type Activity Date Activity User E-Sign Co-Sign Detail Recorded Client Recorded Date Recorded By Document 08/16/17 12:43 [id number] 08/16/17 12:44 [id number] 08/16/17 12:43 PMRU Outcome: Neurological Weakness/Aphasia Weakness Left Side Outcome/Goals Maintain/ Achieve Baseline Neurological Status Maintain/ Improve Strength/ROM Progression Toward Outcome/Goals Progressing Pain/Comfort- Improve/Maintain Start: 08/15/17 18:47 Freq: DAILY Status: Active Target: Protocol: Activity Type Activity Date Activity User E-Sign Co-Sign Detail Recorded Client Recorded Date Recorded By Document 08/16/17 12:43 [id number] 08/16/17 12:44 [id number] 08/16/17 12:43 PMRU Outcome: Pain/Comfort Outcome/Goals Demonstrates Knowledge and Use of Available Comfort Measures Achieves Acceptable Comfort/Pain Level as Determined by Patient/Condit Maintain Comfort Level Allowing Patient to Fully Participate in Rehab Progression Toward Outcome/Goals Progressing Respiratory - Improve/Maintain Start: 08/15/17 18:47 Freq: DAILY Status: Active Target: Protocol: Activity Type Activity Date Activity User E-Sign Co-Sign Detail Recorded Client Recorded Date Recorded By Document 08/16/17 12:43 [id number] 08/16/17 12:44 [id number] 08/16/17 12:43 PMRU Outcome: Respiratory Does Patient Have a Trach No Outcome/Goals Maintain/ Improve Activity Tolerance Prevent Pneumonia/ Atelectasis Remain Aspiration Free Progression Toward Outcome/Goals Progressing Safety- Improve/Maintain Start: 08/15/17 18:47 Freq: DAILY Status: Active Target: Protocol: Activity Type Activity Date Activity User E-Sign Co-Sign Detail Recorded Client Recorded Date Recorded By Document 08/16/17 12:43 [id number] 08/16/17 12:44 [id number] 08/16/17 12:43 PMRU Outcome: Safety Outcome/Goals Remain Free of Injury or Harm Cooperates with Safety Measures for Least Restrictive Environment Prevent Falls/ Injury Progression Toward Outcome/Goals Progressing Skin- Improve/Maintain Start: 08/15/17 18:47 Freq: DAILY Status: Active Target: Protocol: Activity Type Activity Date Activity User E-Sign Co-Sign Detail Recorded Client Recorded Date Recorded By Document 08/16/17 12:43 [id number] 08/16/17 12:44 [id number] 08/16/17 12:43 PMRU Outcome: Skin Skin Risk Level Low Outcome/Goals Maintain/ Improve Skin Intergrity Surgical Incisions Healing Progression Toward Outcome/Goals Progressing Medicine Note: Length of Stay: [2 more days] Anticipated Discharge Destination: home Tentative Discharge Date: [08/18/17] Discharged to: [home]
[2017-08-16] MEDS ORDERED: Phytonadione Oral Solution* 5 MG/25 ML UDC PO ONE (14:00)
[2017-08-16] MEDS: HYDROcodone/ACETAMIN 5-325 MG* 1 TAB PO PRN ×2 (15:18→22:19)
[2017-08-16] MEDS: Atorvastatin* 10 MG TAB PO SCH (16:01)
[2017-08-16] MEDS: Levofloxacin TAB* 250 MG PO SCH (16:01)
[2017-08-16] MEDS: Mirtazapine TAB* 15 MG PO SCH (20:00)
[2017-08-16] MEDS: LORazepam TAB(*) 0.5 MG PO PRN (20:01)
[2017-08-17] MEDS: Levothyroxine TAB* 112 MCG TAB PO SCH (06:16)
[2017-08-17] MEDS: Apixaban* 5 MG TAB PO SCH ×2 (08:04→20:22)
[2017-08-17] MEDS: [UNRECOGNIZED DRUG - OTHER] PO SCH (08:04)
[2017-08-17] MEDS: QUEtiapine TAB* 100 MG PO SCH ×2 (08:04→20:22)
[2017-08-17] MEDS: amLODIPine TAB* 5 MG PO SCH (08:04)
[2017-08-17] MEDS: Docusate CAP* 100 MG PO SCH ×2 (08:05→20:25)
[2017-08-17 08:14] LABS: Hematocrit 30 % (35-47); Hemoglobin 9.9 g/dl (12.0-16.0); Mean Corpuscular HGB Conc 33 g/dl (31-36); Mean Corpuscular Hemoglobin 29 pg (27-31); Mean Corpuscular Volume 88 fL (80-97); Mean Platelet Volume 6 um3 (7.4-10.4); Red Cell Distribution Width 14 % (10.5-15); White Blood Count 8.9 10^3/ul (3.5-10.8)
[2017-08-17 08:27] LABS: Albumin 3.7 g/dL (3.2-5.2); BUN/Creatinine Ratio 22.1 (8-20); Calcium 8.7 mg/dL (8.6-10.3); EGFR African American 83.2 (>60); EGFR Non-African American 64.7 (>60); Globulin 2.6 g/dL (2-4); Potassium 4.2 mmol/L (3.5-5.0); Total Bilirubin 0.3 mg/dL (0.2-1.0); Total Protein 6.3 g/dL (6.4-8.9)
--- NOTE | 2017-08-17 10:40 | PN ---
Progress Note - Progress Note Date of Service: 08/17/17 Note: This morning after shower with OT felt light-headed. BP 109/69, HR 90, O2sat 98 %RA. She was put back in bed and felt better. Encouraged to drink more po fluids. No chest pain, shortness of breath or abdominal pain. Nursing and therapy notes reviewed. She has been taking ativan at HS, which is not a home med. Got Vit K yesterday. Acetaminophen (Tylenol Tab*) 650 mg PO Q6H PRN PRN Reason: FEVER/PAIN Hydrocodone Bitart/Acetaminophen ([place] 5-325 Tab*) 1 tab PO Q6H PRN PRN Reason: PAIN - MODERATE TO SEVERE Last Admin: 08/16/17 22:19 Dose: 1 tab Amlodipine Besylate (Norvasc Tab*) 10 mg PO DAILY [facility] Last Admin: 08/17/17 08:04 Dose: 10 mg Apixaban (Eliquis*) 10 mg PO BID [facility] Stop: 08/22/17 21:01 Last Admin: 08/17/17 08:04 Dose: 10 mg Atorvastatin Calcium (Lipitor*) 10 mg PO 1700 [facility] Last Admin: 08/16/17 16:01 Dose: 10 mg Docusate Sodium (Colace Cap*) 100 mg PO BID [facility] Last Admin: 08/17/17 08:05 Dose: Not Given Escitalopram Oxalate (Lexapro (Nf)) 20 mg PO DAILY [facility] Last Admin: 08/17/17 08:04 Dose: 20 mg Levothyroxine Sodium (Synthroid Tab*) 112 mcg PO DAILY@0600 [facility] Last Admin: 08/17/17 06:16 Dose: 112 mcg Lorazepam (Ativan Tab(*)) 0.5 mg PO Q8H PRN PRN Reason: ANXIETY Last Admin: 08/16/17 20:01 Dose: 0.5 mg Magnesium Hydroxide (Milk Of Magnesia Liq*) 30 ml PO Q6H PRN PRN Reason: CONSTIPATION Melatonin (Melatonin (Nf)) 6 mg PO BEDTIME PRN PRN Reason: INSOMNIA Mirtazapine (Remeron Tab*) 45 mg PO BEDTIME [facility] Last Admin: 08/16/17 20:00 Dose: 45 mg Quetiapine Fumarate (Seroquel Tab*) 100 mg PO BID [facility] Last Admin: 08/17/17 08:04 Dose: 100 mg Senna (Senokot Tab*) 2 tab PO BEDTIME PRN PRN Reason: CONSTIPATION Vital Signs 08/16/17 08/16/17 08/16/17 15:18 16:11 18:06 Temperature 98.4 F Pulse Rate 83 Respiratory 18 18 18 Rate Blood Pressure 132/73 (mmHg) O2 Sat by Pulse 96 Oximetry 08/16/17 08/16/17 08/17/17 20:01 22:19 00:00 Temperature 99.0 F Pulse Rate 89 Respiratory 18 20 16 Rate Blood Pressure 129/79 (mmHg) O2 Sat by Pulse 95 Oximetry 08/17/17 06:17 Temperature 98.2 F Pulse Rate 91 Respiratory 20 Rate Blood Pressure 161/92 (mmHg) O2 Sat by Pulse 97 Oximetry PE: Gen: no acute distress. alert and appropriate. Lungs: clear bilaterally. CV: regular. Abd: +bs, soft, non-tender, non-distended Ext: no edema Laboratory Results - last 24 hr 08/17/17 08/17/17 08/17/17 07:38 07:38 07:39 WBC 8.9 RBC 3.40 L Hgb 9.9 L Hct 30 L MCV 88 MCH 29 MCHC 33 RDW 14 Plt Count 881 H D MPV 6 L Neut % (Auto) 70.2 Lymph % (Auto) 17.0 L [place] % (Auto) 8.6 Eos % (Auto) 3.2 Baso % (Auto) 1.0 Absolute Neuts (auto) 6.3 Absolute Lymphs (auto) 1.5 Absolute Monos (auto) 0.8 Absolute Eos (auto) 0.3 Absolute Basos (auto) 0.1 Absolute Nucleated RBC 0.01 Nucleated RBC % 0.1 INR (Anticoag Therapy) 1.54 H Sodium 139 Potassium 4.2 Chloride 104 Carbon Dioxide 26 Anion Gap 9 BUN 19 Creatinine 0.86 Est GFR ( Amer) 83.2 Est GFR (Non-Af Amer) 64.7 BUN/Creatinine Ratio 22.1 H Glucose 101 H Calcium 8.7 Total Bilirubin 0.30 AST 18 ALT 18 Alkaline Phosphatase 135 H Total Protein 6.3 L Albumin 3.7 Globulin 2.6 Albumin/Globulin Ratio 1.4 IMPRESSION: 72yo woman with left hip fracture complicated by pulmonary embolism PLAN: #Left hip fracture s/p hemiarthroplasty - hip precautions. f/u Dr. Tellez. #Acute post op anemia - stable #Thrombocytosis - improved. Hematology f/u after d/c. #Pulmonary Embolism - Eliquis 10mg bid until 08/23, then 5mg bid for total of 3 months. Got Vit K yesterday to reverse coumadin and INR better today at 1.54. Dr. Knox to follow-up. #Depression - on home regimen. I encouraged patient to try to not use ativan unless really necessary given light headedness this morning. #continue PT/OT. #Adv Directives: DNR. is hcp #Est LOS: expect d/c home tomorrow with home services.
[2017-08-17] MEDS: HYDROcodone/ACETAMIN 5-325 MG* 1 TAB PO PRN ×2 (14:47→20:22)
--- NOTE | 2017-08-17 16:43 | PN ---
Progress Note - Progress Note Date of Service: 08/17/17 SOAP: Subjective: []Doing well. Working through PT. No SOB. Bruising from Lovenox injections but otherwise fine. Tolerating anticoagulation. Acetaminophen (Tylenol Tab*) 650 mg PO Q6H PRN PRN Reason: FEVER/PAIN Hydrocodone Bitart/Acetaminophen ([place] 5-325 Tab*) 1 tab PO Q6H PRN PRN Reason: PAIN - MODERATE TO SEVERE Last Admin: 08/17/17 14:47 Dose: 1 tab Amlodipine Besylate (Norvasc Tab*) 10 mg PO DAILY [facility] Last Admin: 08/17/17 08:04 Dose: 10 mg Apixaban (Eliquis*) 10 mg PO BID [facility] Stop: 08/22/17 21:01 Last Admin: 08/17/17 08:04 Dose: 10 mg Atorvastatin Calcium (Lipitor*) 10 mg PO 1700 [facility] Last Admin: 08/16/17 16:01 Dose: 10 mg Docusate Sodium (Colace Cap*) 100 mg PO BID [facility] Last Admin: 08/17/17 08:05 Dose: Not Given Escitalopram Oxalate (Lexapro (Nf)) 20 mg PO DAILY [facility] Last Admin: 08/17/17 08:04 Dose: 20 mg Levothyroxine Sodium (Synthroid Tab*) 112 mcg PO DAILY@0600 [facility] Last Admin: 08/17/17 06:16 Dose: 112 mcg Lorazepam (Ativan Tab(*)) 0.5 mg PO Q8H PRN PRN Reason: ANXIETY Last Admin: 08/16/17 20:01 Dose: 0.5 mg Magnesium Hydroxide (Milk Of Magnesia Liq*) 30 ml PO Q6H PRN PRN Reason: CONSTIPATION Melatonin (Melatonin (Nf)) 6 mg PO BEDTIME PRN PRN Reason: INSOMNIA Mirtazapine (Remeron Tab*) 45 mg PO BEDTIME [facility] Last Admin: 08/16/17 20:00 Dose: 45 mg Quetiapine Fumarate (Seroquel Tab*) 100 mg PO BID [facility] Last Admin: 08/17/17 08:04 Dose: 100 mg Senna (Senokot Tab*) 2 tab PO BEDTIME PRN PRN Reason: CONSTIPATION Objective: [] Vital Signs Temp Pulse Resp BP Pulse Ox 98.8 F 85 18 121/71 96 08/17/17 15:07 12/01/17 15:07 08/17/17 15:07 08/17/17 15:07 08/17/17 15:07 HEENT - mucosa moist CTA RRR S1S2 +BS, NT ND Ext no edema Assessment: []72 year old with thrombocytosis and PE after acute hip fracture. Plan: []1. PE. Agree with Eliquis. Plan 3 months total of anticoagulation. 2. Thrombocytosis and anemia. - Check Iron and B12 and follow - If persistent will send molecular studies for MPD 3. Increased INR. Suspect the 2.5 was from her Coumadin. Eliquis can raise INR at peak concentration. If remains elevated will make sure is drawn before am eliquis and can check a Xa inhibitor level to make sure she is not supratherapeutic. 4. Will follow up in clinic after discharge.
[2017-08-17] MEDS: Atorvastatin* 10 MG TAB PO SCH (17:08)
[2017-08-17 19:24] LABS: Ferritin 66.4 ng/mL (11-307)
[2017-08-17] MEDS: Mirtazapine TAB* 15 MG PO SCH (20:22)
[2017-08-18] MEDS: Levothyroxine TAB* 112 MCG TAB PO SCH (04:18)
[2017-08-18] MEDS: [UNRECOGNIZED DRUG - OTHER] PO SCH (08:42)
[2017-08-18] MEDS: QUEtiapine TAB* 100 MG PO SCH (08:42)
[2017-08-18] MEDS: Apixaban* 5 MG TAB PO SCH (08:42)
[2017-08-18] MEDS: Docusate CAP* 100 MG PO SCH (08:42)
[2017-08-18] MEDS: amLODIPine TAB* 5 MG PO SCH (08:42)
--- NOTE | 2017-08-18 10:43 | PN ---
Progress Note - Progress Note Date of Service: 08/18/17 Note: No new issues overnight. She is looking forward to going home. Nursing and therapy notes reviewed. She did not use ativan last night. Acetaminophen (Tylenol Tab*) 650 mg PO Q6H PRN PRN Reason: FEVER/PAIN Hydrocodone Bitart/Acetaminophen ([place] 5-325 Tab*) 1 tab PO Q6H PRN PRN Reason: PAIN - MODERATE TO SEVERE Last Admin: 08/17/17 20:22 Dose: 1 tab Amlodipine Besylate (Norvasc Tab*) 10 mg PO DAILY [facility] Last Admin: 08/18/17 08:42 Dose: 10 mg Apixaban (Eliquis*) 10 mg PO BID [facility] Stop: 08/22/17 21:01 Last Admin: 08/18/17 08:42 Dose: 10 mg Atorvastatin Calcium (Lipitor*) 10 mg PO 1700 [facility] Last Admin: 08/17/17 17:08 Dose: 10 mg Docusate Sodium (Colace Cap*) 100 mg PO BID [facility] Last Admin: 08/18/17 08:42 Dose: 100 mg Escitalopram Oxalate (Lexapro (Nf)) 20 mg PO DAILY [facility] Last Admin: 08/18/17 08:42 Dose: 20 mg Levothyroxine Sodium (Synthroid Tab*) 112 mcg PO DAILY@0600 [facility] Last Admin: 08/18/17 04:18 Dose: 112 mcg Lorazepam (Ativan Tab(*)) 0.5 mg PO Q8H PRN PRN Reason: ANXIETY Last Admin: 08/16/17 20:01 Dose: 0.5 mg Magnesium Hydroxide (Milk Of Magnesia Liq*) 30 ml PO Q6H PRN PRN Reason: CONSTIPATION Melatonin (Melatonin (Nf)) 6 mg PO BEDTIME PRN PRN Reason: INSOMNIA Mirtazapine (Remeron Tab*) 45 mg PO BEDTIME [facility] Last Admin: 08/17/17 20:22 Dose: 45 mg Quetiapine Fumarate (Seroquel Tab*) 100 mg PO BID [facility] Last Admin: 08/18/17 08:42 Dose: 100 mg Senna (Senokot Tab*) 2 tab PO BEDTIME PRN PRN Reason: CONSTIPATION Vital Signs Temp Pulse Resp BP Pulse Ox 98.9 F 87 20 124/63 97 08/18/17 06:15 08/18/17 10:23 08/18/17 06:15 08/18/17 10:23 08/18/17 10:23 PE: Gen: no acute distress. alert and appropriate. Lungs: clear bilaterally. CV: regular. Abd: +bs, soft, non-tender, non-distended Ext: no edema. Left hip incision c/d/i. Laboratory Results - last 24 hr 08/17/17 08/18/17 16:31 09:30 INR (Anticoag Therapy) 1.39 H Iron 55 TIBC 353 % Saturation 16 Unsat Iron Binding 298 Ferritin 66.4 Vitamin B12 235 IMPRESSION: 72yo woman with left hip fracture complicated by pulmonary embolism PLAN: #Left hip fracture s/p hemiarthroplasty - hip precautions. f/u Dr. Tellez. #Acute post op anemia - stable #Thrombocytosis - improved. Hematology f/u after d/c. #Pulmonary Embolism - Eliquis 10mg bid until 08/23, then 5mg bid for total of 3 months. INR decreasing to baseline since d/c coumadin and got Vit K x1. Dr. Knox to follow-up. #Depression - on home regimen. #Adv Directives: DNR. is hcp #Est LOS: d/c home today with 's support.
[2017-08-18 10:46] VITALS: BP 124/63
--- NOTE | 2017-08-18 17:43 | DS ---
REHABILITATION DISCHARGE SUMMARY: DATE OF ADMISSION: 08/15/17 DATE OF DISCHARGE: 08/18/17 REASON FOR ADMISSION: Left hip fracture and pulmonary embolism. HISTORY OF PRESENT ILLNESS: For full details of her acute hospitalization leading up to her rehabilitation stay, please see the history and physical dictated by Dr. Swenson originally on 08/03/17 and then again on 08/15/17. Her stay was interrupted by pulmonary embolism on 08/12/17 for which she was sent back up to the hospital in [facility] before returning on . When she was discharged from the hospital, she was started on Eliquis for treatment of the pulmonary embolism and has since been followed by Dr. Knox in Hematology. REHABILITATION COURSE: During her time on the [facility], she has continued taking Eliquis 10 mg twice per day. She is to stay on this regimen until 08/23/17 when it will go to 5 mg twice per day. On 08/16/17, her INR was 2.5, which is the result of her having received Coumadin initially for the pulmonary embolism. She was given a 5 mg dose of vitamin K and her INR has been decreasing since that time. Today, it was 1.3. She will have followup with Dr. Knox again after discharge. She has also been followed for thrombocytosis. Laboratory studies have been unrevealing. It does seem to be improving and may just be a reactive thrombocytosis secondary to her fracture. Once again, this will be followed up in Hematology. She has on occasion used Ativan for anxiety. She is being discharged with just 5 more doses and advised to use it sparingly if absolutely necessary. She is back on her home regimen for depression. She has used hydrocodone for pain, taking 2 to 3 per day. She participated well with physical therapy and at the time of discharge was independent with bed mobility, transfers using a rolling walker and ambulation with a rolling walker up to 300 feet. She is independent, climbing 10 stairs with 2 rails. She has total hip precautions since she had a hemiarthroplasty. Her was trained to assist her as needed especially with recalling hip precautions. She also participated well with occupational therapy and at the time of discharge is independent with eating. It is recommended that she has supervision from her for bathing and tub transfers as well as dressing, so that she is reminded to not break her hip precautions. She is independent toileting, using a walker and over the toilet commode. Initially, she will need assistance for any home management or cooking. Once again, her was trained in how to assist her in following her hip precautions. DISCHARGE MEDICATIONS: 1. Eliquis 10 mg b.i.d. until 08/23/17 when it will change to 5 mg b.i.d. 2. [place] 5/325 1 tablet q.6 hours p.r.n. pain, maximum daily dose of 3. 3. Lorazepam 0.5 mg q.8 hours p.r.n. severe anxiety. 4. Melatonin 6 mg q.h.s. p.r.n. 5. Docusate 100 mg daily. 6. Amlodipine 10 mg daily. 7. Atorvastatin 10 mg q.p.m. 8. Lexapro 10 mg daily. 9. Seroquel 100 mg b.i.d. 10. Remeron 45 mg q.h.s. 11. Levothyroxine 112 mcg daily. FOLLOWUP: 1. Follow up with Dr. Tellez in 1 to 2 weeks. 2. Follow up with Dr. Knox in 1 to 2 weeks. 3. Follow up with primary care provider, Germán Miguel in 1 month. 4. A referral is being sent to [facility] [place] for ongoing home care and therapies. That will start in the next 1 to 3 days. DISCHARGE CONDITION: Good. DISCHARGE DISPOSITION: Home with 's assistance as needed. DISCHARGE DIAGNOSES: 1. Left hip fracture, status post hemiarthroplasty. 2. Pulmonary embolism. 3. Depression. 4. Anxiety. 5. Hypertension. 6. Hyperlipidemia. 7. Hypothyroidism. [id number]/[facility] #: [id number] [facility] HOSPITALChencho
== END 2017-08-18 12:50 | disposition home health service (06) | DRG 559 ==
LOC: PMRU 14:15
PROVIDERS: ADMIT Physical Medicine & Rehabilitation; ATTEND Physical Medicine & Rehabilitation
PROC: F07Z5ZZ Bed Mobility Treatment (ICD-10-PCS; principal; 2017-08-15)
PROC: F07Z9ZZ Gait Training/Functional Ambulation Treatment (ICD-10-PCS; 2017-08-15)
PROC: F07Z8ZZ Transfer Training Treatment (ICD-10-PCS; 2017-08-15)
PROC: F08Z0ZZ Bathing/Showering Techniques Treatment (ICD-10-PCS; 2017-08-15)
PROC: F08Z1ZZ Dressing Techniques Treatment (ICD-10-PCS; 2017-08-15)
PROC: F08Z3ZZ Feeding/Eating Treatment (ICD-10-PCS; 2017-08-15)
DX: S72.92XD Unspecified fracture of left femur, subsequent encounter for closed fracture with routine healing (principal); I26.99 Other pulmonary embolism without acute cor pulmonale; N39.0 Urinary tract infection, site not specified; Z47.1 Aftercare following joint replacement surgery; Z96.642 Presence of left artificial hip joint; W18.30XD Fall on same level, unspecified, subsequent encounter; F32.9 Major depressive disorder, single episode, unspecified; F41.9 Anxiety disorder, unspecified; I10 Essential (primary) hypertension; E78.5 Hyperlipidemia, unspecified; E03.9 Hypothyroidism, unspecified; B96.89 Other specified bacterial agents as the cause of diseases classified elsewhere; Z66 Do not resuscitate; D47.3 Essential (hemorrhagic) thrombocythemia; J44.9 Chronic obstructive pulmonary disease, unspecified; Z79.899 Other long term (current) drug therapy; Z88.2 Allergy status to sulfonamides; Z87.891 Personal history of nicotine dependence
CPT/HCPCS: 36415; 80053; 82607; 82728; 83540; 83550; 85025; 85610; 99232; A9270-GY

== ENCOUNTER 2017-09-01 12:48 | Emergency (ER) | payer MEDICARE, BC ==
[2017-09-01] MEDS ORDERED: NITROGLYCERIN TL PRN (13:39)
[2017-09-01 13:45] LABS: ABS Basophils 0.1 10^3/ul (0-0.2); ABS Eosinophils 0.3 10^3/ul (0-0.6); ABS Lymphocytes 1.6 10^3/ul (1.0-4.8); ABS Monocytes 0.5 10^3/ul (0-0.8); ABS Neutrophils 3.3 10^3/ul (1.5-7.7); ABS Nucleated RBC 0 10^3/ul; Eosinophil % 4.7 % (0-6); Hematocrit 33 % (35-47); Lymphocyte % 27.8 % (25-47); Mean Corpuscular HGB Conc 33 g/dl (31-36); Mean Corpuscular Hemoglobin 29 pg (27-31); Mean Corpuscular Volume 87 fL (80-97); Mean Platelet Volume 7 um3 (7.4-10.4); Nucleated Red Blood Cells % 0; Platelet Count 310 10^3/ul (150-450); Red Blood Count 3.77 10^6/ul (4.0-5.4); Red Cell Distribution Width 15 % (10.5-15); White Blood Count 5.8 10^3/ul (3.5-10.8)
[2017-09-01 13:54] LABS: INR 1.21 (0.77-1.02)
--- NOTE | 2017-09-01 13:57 | RAD ---
INDICATION: Chest pain COMPARISON: July 31, 2017 TECHNIQUE: PA and lateral dual-energy views were obtained. FINDINGS: Bones/Soft Tissues: There are no acute bony findings. Cardiomediastinal: The cardiomediastinal silhouette is normal. Lungs: There are no infiltrates. Pleura: There are no pleural effusions. Other: None IMPRESSION: NO ACTIVE DISEASE.
[2017-09-01 14:01] LABS: EGFR Non-African American 68.3 (>60)
[2017-09-01] MEDS ORDERED: Nitroglycerin TAB 0.4 MG* 0.4 MG TAB SL ONE (14:02)
[2017-09-01] MEDS ORDERED: Nitroglycerin TAB 0.4 MG* 0.4 MG TAB ONE (14:04)
--- NOTE | 2017-09-01 15:52 | RAD ---
INDICATION: ] Right upper quadrant pain COMPARISON: Gallbladder sonogram August 22, 2010; renal sonogram July 29, 2014 TECHNIQUE: Longitudinal and transverse scans of the right upper quadrant were obtained. Doppler interrogation of the hepatic and portal venous system was performed. FINDINGS: Liver: The liver at the upper range of normal in size measuring 18.3 cm in cephalocaudal dimension. The echogenicity is normal. There are no focal masses. Vessels: There is normal hepatic and portal venous flow. Bile ducts: There is no evidence of intrahepatic or extrahepatic ductal dilatation. The common duct measures 0.5 cm. Gallbladder: The sonographic appearance of the gallbladder is normal. There is no evidence of cholelithiasis, thickening of the gallbladder wall, or pericholecystic fluid. Pancreas: The visualized pancreas appears normal Right kidney: The right kidney is normal in size and echogenicity. There are no new masses or calculi. There is a tiny echogenic, nonshadowing focus consistent with an angiomyolipoma. This measures CM. When allowing for slight processes in measurement technique, there is no appreciable change. There is no evidence of hydronephrosis. The right kidney measures 9.2 x 4.4 x 4.7 cm. IVC and aorta: The aorta and superior vena cava appear normal. Fluid: There is no ascites. Other: None. IMPRESSION: 1. No evidence of cholelithiasis. 2. 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
[2017-09-01 16:35] VITALS: BP 139/78
--- NOTE | 2017-09-20 17:50 | ED ---
Johanna Junior Gabriel, scribed for Kurt Cabrera MD on 09/01/17 at 1325 . HPI Chest Pain - HPI Summary HPI Summary: This patient is a 72 year old F presenting to [facility] with a chief complaint of CP since years ago. She states she has been having this pain at night for years. The patient rates the pain 4/10 in severity and described it as pressure that radiates to her back and jaw. Patient reports nausea. Patient denies SOB, cough, diaphoresis, and vomiting. Patient states the pain feels similar when she had her PE. - History of Current Complaint Chief Complaint: EDChestPainROMI Hx Obtained From: Patient Onset/Duration: Still Present Timing: Intermittent - at night Pain Intensity: 4 Pain Scale Used: 0-10 Numeric Chest Pain Radiates: Yes Chest Pain Radiates To:: Back, Jaw Character: Heaviness, Pressure/Squeezing Associated Signs and Symptoms: Positive: Negative - SOB, cough, diaphoresis, and vomiting, Other: - nausea - Additional Pertinent History Primary Care Physician: SUSANA - Allergy/Home Medications Allergies/Adverse Reactions: Allergies Allergy/AdvReac Type Severity Reaction Status Date / Time Sulfa Drugs Allergy Mild Rash Verified 09/01/17 13:08 PMH/Surg Hx/FS Hx/Imm Hx Previously Healthy: No Endocrine/Hematology History: Denies: Hx Diabetes, Hx Systemic Lupus Erythematosus Cardiovascular History: Reports: Hx Hypertension Denies: Hx Pacemaker/ICD Respiratory History: Reports: Hx Pulmonary Embolism History: Denies: Hx Dialysis, Hx Renal Disease Musculoskeletal History: Reports: Other Musculoskeletal History - osteopenia Denies: Hx Rheumatoid Arthritis, Hx Osteoporosis Sensory History: Reports: Hx Contacts or Glasses, Hx Hearing Aid, Hx Hearing Problem Opthamlomology History: Reports: Hx Contacts or Glasses Psychiatric History: Reports: Hx Anxiety, Hx Depression Denies: Hx Eating Disorder, Hx Panic Disorder, Hx of Violent Episodes Against Others - Cancer History Cancer Type, Location and Year: thyroid nodule ca Hx Chemotherapy: No Hx Radiation Therapy: No - Surgical History Surgery Procedure, Year, and Place: thyroidectomy 2008. Tonsils. Eye muscle surgery as a child. July 2017- Left-hip hemiarthoplasty - Immunization History Date of Influenza Vaccine: 06/2017 Infectious Disease History: Denies: Traveled Outside the [place] in Last 30 Days - Family History Known Family History: Positive: Diabetes, Other - cancer - Social History Lives: With Family Alcohol Use: None Substance Use Type: Reports: None Smoking Status (MU): Former Smoker Type: Cigarettes Have You Smoked in the Last Year: No Review of Systems - ROS Summary Review of Systems Summary: Appearance: Well-appearing, Well-nourished Skin: Warm, Dry, No rash Eyes: Normal, PERRL, EOMI, sclera anicteric ENT: Normal Neck: Supple, nontender Respiratory: Clear to auscultation bilateral lower lobes rales Cardiovascular: S1, S2, no murmur, no rub, no gallop Abdomen: Soft, no organomegaly RUQ tenderness Bowel sounds: Present Musculoskeletal: Normal, Strength/ROM Intact, no edema, pulses symmetrical Neurological: Normal, A&Ox3, cranial nerves II-XII WNL, follows commands, gait not tested, sensation intact to pin and light touch Psychiatric: affect normal, behavior appropriate, dressed appropriately, judgment intact Negative: Skin Diaphoresis Positive: Chest Pain Negative: Shortness Of Breath, Cough Positive: Nausea. Negative: Vomiting All Other Systems Reviewed And Are Negative: Yes Physical Exam Vital Signs On Initial Exam: Initial Vitals BP 152/91 09/01/17 13:05 - Andrei Coma Scale Coma Scale Total: 15 Diagnostics - Vital Signs Vital Signs Pulse BP Pulse Ox 09/01/17 13:07 75 97 09/01/17 13:05 152/91 - Laboratory Result Diagrams: 09/01/17 13:33 09/01/17 13:33 Lab Statement: Any lab studies that have been ordered have been reviewed, and results considered in the medical decision making process. - Radiology CXR Radiology Interpretation Completed By: Radiologist - NO ACTIVE DISEASE. ED physician has reviewed this radiology report - EKG 1252 Cardiac Rate: NL EKG Rhythm: Sinus Rhythm - at 79 BPM EKG Interpretation: minimal ST elevation 14:05 Cardiac Rate: NL EKG Rhythm: Sinus Rhythm - at [address] Segment: Normal - Additional Comments Diagnostic Additional Comments: Gallbladder US reveals, per radiologist, 1. No evidence of cholelithiasis. 2. 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 Re-Evaluation - Re-Evaluation First Eval Re-Evaluation Time: 15:48 Change: Improved - Pt sates the pain is better and that she has not missed any doses of eliquis. Chest Pain Course/Dx - Course Assessment/Plan: This patient is a 72 year old F presenting to [facility] with a chief complaint of CP since years ago. She states she has been having this pain at night for years. The patient rates the pain 4/10 in severity and described it as pressure that radiates to her back and jaw. Patient reports nausea. Patient denies SOB, cough, diaphoresis, and vomiting. Patient states the pain feels similar when she had her PE. An EKG reveals NSR. CXR reveals, per radiologist, NO ACTIVE DISEASE. Gallbladder US reveals, per radiologist, 1. No evidence of cholelithiasis. 2. 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 Test results with no significant abnormalities except for D-dimer of 493. In the ED course the patient was given nitroglycerin. Patient will be discharged with follow up from Dr. Miguel. The patient is agreeable with this plan. - Diagnoses Provider Diagnoses: Atypical chest pain Discharge - Discharge Plan Condition: Good Disposition: HOME Patient Education Materials: Chest Pain (ED) Referrals: Germán Miguel, [employer] [Primary Care Provider] - The documentation as recorded by the Johanna ko Gabriel accurately reflects the service I personally performed and the decisions made by me, Kurt Cabrera MD.
== END 2017-09-01 16:51 | disposition home or self-care (01) ==
LOC: ED 12:48
DX: R07.89 Other chest pain (principal); Z87.891 Personal history of nicotine dependence; R05 Cough; R11.2 Nausea with vomiting, unspecified; Z86.79 Personal history of other diseases of the circulatory system
CPT/HCPCS: 36415; 71020; 76705; 80053; 83690; 84484; 85025; 85379; 85610; 93005; 99282; A9270-GY

== ENCOUNTER 2018-03-26 12:33 | Emergency (ER) | payer MEDICARE, BC ==
--- NOTE | 2018-03-26 13:50 | ED ---
Upper Extremity Pain - HPI Summary HPI Summary: This patient is a 72 year old F presenting to ED with a chief complaint of R sided CP, R sided neck and teeth pain, and shoulder pain since in the middle of last night. The patient report she went to bed just fine and woke up in the middle of the night with the pain but went back to bed. This morning she woke up fine. Then she went to the milling machine operator in the morning. During treatment, the pain came back, so the patient decided to come into the ED. The CC is described as intermittent lasting 20 minutes and aching. The patient rates the pain 7/10 in severity at its worst. Symptoms aggravated by palpation. Symptoms alleviated by nothing. Patient reports numbness in the L side of the face. Patient denies difficulty moving the arm, weakness, dizziness, light-headed, SOB , and difficulty moving her neck. The patient reports she had hip surgery in July 2017 where she had a blood clot soon after causing her similar pain to this. - History of Current Complaint Chief Complaint: EDExtremityUpper Stated Complaint: RT SIDE FACIAL PAIN Time Seen by Provider: 03/26/18 13:14 Hx Obtained From: Patient Onset/Duration: Started Hours Ago, Resolved Timing: Intermittent, Lasting Minutes - 20 minutes Severity Initially: Moderate - 7/10 Severity Currently: Moderate Pain Location: Other: - R sided CP, R sided neck and teeth pain, and shoulder pain Character: Aching Aggravating Factor(s): Other - palpation Alleviating Factor(s): Nothing Associated Signs & Symptoms: Positive: Other - Patient reports numbness in the L side of the face. Patient denies difficulty moving the arm, weakness, dizziness, light-headed, SOB, and difficulty moving her neck. - Allergies/Home Medications Allergies/Adverse Reactions: Allergies Allergy/AdvReac Type Severity Reaction Status Date / Time Sulfa (Sulfonamide Allergy Rash Verified 03/26/18 12:37 Antibiotics) PMH/Surg Hx/FS Hx/Imm Hx Endocrine/Hematology History: Denies: Hx Diabetes, Hx Systemic Lupus Erythematosus Cardiovascular History: Reports: Hx Hypertension Denies: Hx Pacemaker/ICD Respiratory History: Reports: Hx Pulmonary Embolism History: Denies: Hx Dialysis, Hx Renal Disease Musculoskeletal History: Reports: Other Musculoskeletal History - osteopenia Denies: Hx Rheumatoid Arthritis, Hx Osteoporosis Sensory History: Reports: Hx Contacts or Glasses, Hx Hearing Aid, Hx Hearing Problem Opthamlomology History: Reports: Hx Contacts or Glasses Psychiatric History: Reports: Hx Anxiety, Hx Depression Denies: Hx Eating Disorder, Hx Panic Disorder, Hx of Violent Episodes Against Others - Cancer History Cancer Type, Location and Year: thyroid nodule ca Hx Chemotherapy: No Hx Radiation Therapy: No - Surgical History Surgery Procedure, Year, and Place: thyroidectomy 2008. Tonsils. Eye muscle surgery as a child. July 2017- Left-hip hemiarthoplasty,and replacement per patient - Immunization History Date of Influenza Vaccine: 06/2017 Infectious Disease History: No Infectious Disease History: Denies: Traveled Outside the [place] in Last 30 Days - Family History Known Family History: Positive: Diabetes, Other - cancer - Social History Alcohol Use: None Substance Use Type: Reports: None Smoking Status (MU): Former Smoker Type: Cigarettes Have You Smoked in the Last Year: No Review of Systems Positive: Other - R sided neck and teeth pain; denies difficulty moving her neck Positive: Chest Pain - R sided CP Negative: Shortness Of Breath Positive: Other - R side shoulder pain; denies difficulty moving the arm Neurological: Other - denies dizziness, light-headedness Positive: Numbness - numbness in the L side of the face. Negative: Weakness All Other Systems Reviewed And Are Negative: Yes Physical Exam - Summary Physical Exam Summary: Appearance: Well-appearing, Well-nourished, lying in bed comfortably Skin: Warm, dry, no obvious rash Eyes: sclera anicteric, no conjunctival pallor ENT: mucous membranes moist, pharynx appears normal Neck: Supple, nontender, FROM of head, no significant tenderness of the strep muscle of the neck Respiratory: Clear to auscultation, no signs of respiratory distress Cardiovascular: Normal S1, S2. No murmurs. Normal distal pulses in tibial and radial bilaterally. Abdomen: Soft, nontender, normal active bowel sounds present Musculoskeletal: Normal, Strength/ROM Intact Neurological: A&Ox3, awake and alert, mentation is normal, speech is fluent and appropriate Psychiatric: affect is normal, does not appear anxious or depressed Triage Information Reviewed: Yes Vital Signs On Initial Exam: Initial Vitals Temp Pulse Resp BP Pulse Ox 97.7 F 88 20 180/104 96 03/26/18 12:34 03/26/18 12:34 03/26/18 12:34 03/26/18 12:34 03/26/18 12:34 Vital Signs Reviewed: Yes Diagnostics - Vital Signs Vital Signs Temp Pulse Resp BP Pulse Ox 03/26/18 12:34 97.7 F 88 20 180/104 96 - Laboratory Result Diagrams: 03/26/18 14:00 03/26/18 14:00 Lab Statement: Any lab studies that have been ordered have been reviewed, and results considered in the medical decision making process. - EKG 1329 Cardiac Rate: NL EKG Rhythm: Sinus Rhythm - NSR at 81BPM, P waves, QRS complex, and T waves are within normal limits, T waves and intervals are normal, no ischemic changes. This is a normal EKG. Course/Dx - Diagnoses Differential Diagnosis/HQI/PQRI: Positive: Other - Pulmonary Embolus, ACS Provider Diagnoses: Chest pain Discharge - Sign-Out/Discharge Documenting (check all that apply): Patient Departure - Discharge Plan Condition: Good Disposition: HOME Patient Education Materials: Acute Neck Pain (ED) Referrals: Germán Miguel NP [Primary Care Provider] - - Billing Disposition and Condition Condition: GOOD Disposition: Home
[2018-03-26 14:21] LABS: ABS Basophils 0.1 10^3/ul (0-0.2); ABS Eosinophils 0.1 10^3/ul (0-0.6); ABS Lymphocytes 1.3 10^3/ul (1.0-4.8); ABS Monocytes 0.6 10^3/ul (0-0.8); ABS Neutrophils 4.5 10^3/ul (1.5-7.7); ABS Nucleated RBC 0 10^3/ul; Hematocrit 40 % (35-47); Hemoglobin 13.6 g/dl (12.0-16.0); Mean Corpuscular HGB Conc 34 g/dl (31-36); Mean Corpuscular Hemoglobin 29 pg (27-31); Mean Corpuscular Volume 84 fL (80-97); Mean Platelet Volume 7.5 um3 (7.4-10.4); Nucleated Red Blood Cells % 0; Platelet Count 312 10^3/ul (150-450); Red Blood Count 4.75 10^6/ul (4.00-5.40); Red Cell Distribution Width 16 % (10.5-15); White Blood Count 6.6 10^3/ul (3.5-10.8)
[2018-03-26 14:33] LABS: EGFR Non-African American 59.1 (>60)
[2018-03-26 14:49] VITALS: BP 175/118
== END 2018-03-26 14:50 | disposition home or self-care (01) ==
LOC: ED 12:33
DX: R07.9 Chest pain, unspecified (principal); K08.89 Other specified disorders of teeth and supporting structures; Z87.891 Personal history of nicotine dependence; R20.0 Anesthesia of skin
CPT/HCPCS: 36415; 80053; 84484; 85025; 85379; 93005; 99283